=== PATIENT | male | born 1950 | race African-American/Black ===

== ENCOUNTER 2019-07-18 20:58 | Inpatient (IN) | payer OTHER ==
--- NOTE | 2019-07-18 21:12 | PDOC ---
History of Present Illness - General Stated Complaint: HYPOTENSIVE Time Seen by Provider: 07/18/19 21:11 Past History - Past Medical History Allergies/Adverse Reactions: Allergies Allergy/AdvReac Type Severity Reaction Status Date / Time No Known Allergies Allergy Verified 07/18/19 23:00 Home Medications: Ambulatory Orders Amlodipine Besylate 1.5 tab PO DAILY 07/21/19 Atorvastatin Ca [Lipitor] 40 mg PO HS 07/21/19 Glipizide [Glipizide ER] 10 mg PO DAILY 07/21/19 Lisinopril [Zestril] 40 mg PO DAILY 07/21/19 Metformin HCl [Glucophage] 1,000 mg PO BID 07/21/19 ED Treatment Course - LABORATORY CBC & Chemistry Diagram: 07/19/19 08:09 07/20/19 14:25 Medical Decision Making - Medical Decision Making 69yo M with PMH of HTN, DM, CVA with residual left sided weakness presenting with weakness. Patient's aide is at the bedside providing collateral history. She notes she came on shift at 8pm and noticed that the patient seemed lethargic and was sliding down from his wheelchair. His blood pressure was noted to be high, 175/74, however the aide does not know what his baseline blood pressure is. She states he currently seems weaker than at baseline. Patient is without acute complaints. Has been eating and drinking normally. No recent sick contacts. Denies fevers, chills, chest pain, or shortness of breath. PCP: Dr. Sheba Moyer (at [facility]) ROS: Constitutional: no fever, no chills HEENT: no throat pain, no dysphagia Cardiovascular: no chest pain, no palpitations Respiratory: no cough, no shortness of breath Gastrointestinal: no abdominal pain, no nausea Genitourinary: no dysuria, no hematuria Musculoskeletal: no myalgia, no arthralgia Skin: no rash, no itching Neurologic: no headache, +weakness PE: General: Awake, alert, and fully oriented x 3, in no acute distress Head: No signs of trauma Eyes: EOMI, sclera anicteric ENT: Dry mucus membranes Neck: Normal ROM, supple Lungs: Lungs clear, Normal breath sounds Cardio: Regular rhythm, S1 and S2 present Abdomen: Soft, nontender. No guarding, no rebound, no masses Extremities: Normal range of motion, Distal pulses present, No calf tenderness SKIN: Warm, Dry, normal turgor Neurologic: Cranial nerves II through XII grossly intact. Normal speech ED Course/MDM: DDX including but not limited to UTI, PNA, bacteremia, influenza, fever of unknown origin VS significant for rectal temp of 100.4 and tachycardia Septic workup initiated Fluids Ofirmev 07/18/19 21:11 EKG: rate 105, QTc 478, sinus tachycardia CBC WBC 6.8 K/mm3 (4.0-10.0) 07/18/19 21:55 RBC 4.11 M/mm3 (4.00-5.60) 07/18/19 21:55 Hgb 11.3 GM/dL (11.7-16.9) L 07/18/19 21:55 Hct 36.1 % (35.4-49) 07/18/19 21:55 MCV 87.9 fl (80-96) 07/18/19 21:55 MCH 27.6 pg (25.7-33.7) 07/18/19 21:55 MCHC 31.4 g/dl (32.0-35.9) L 07/18/19 21:55 RDW 14.5 % (11.9-15.9) 07/18/19 21:55 Plt Count 198 K/MM3 (134-434) 07/18/19 21:55 MPV 8.7 fl (7.5-11.1) 07/18/19 21:55 Absolute Neuts (auto) 5.9 K/mm3 (1.5-8.0) 07/18/19 21:55 Neutrophils % 86.7 % (42.8-82.8) H 07/18/19 21:55 Lymphocytes % 3.7 % (8-40) L 07/18/19 21:55 Monocytes % 8.4 % (3.8-10.2) 07/18/19 21:55 Eosinophils % 0.9 % (0-4.5) 07/18/19 21:55 Basophils % 0.3 % (0-2.0) 07/18/19 21:55 Nucleated RBC % 0 % (0-0) 07/18/19 21:55 No leukocytosis Pending chemistries Need to collect urine CXR without acute pathology, my impression 07/18/19 22:49 CMP Sodium 139 mmol/L (136-145) 07/18/19 21:55 Potassium 3.5 mmol/L (3.5-5.1) 07/18/19 21:55 Chloride 104 mmol/L (98-107) 07/18/19 21:55 Carbon Dioxide 28 mmol/L (21-32) 07/18/19 21:55 Anion Gap 8 MMOL/L (8-16) 07/18/19 21:55 BUN 12.6 mg/dL (7-18) 07/18/19 21:55 Creatinine 0.7 mg/dL (0.55-1.3) 07/18/19 21:55 Est GFR (CKD-EPI)AfAm 112.38 07/18/19 21:55 Est GFR (CKD-EPI)NonAf 96.97 07/18/19 21:55 Random Glucose 164 mg/dL (74-106) H 07/18/19 21:55 Lactic Acid 2.2 mmol/L (0.4-2.0) H* 07/18/19 21:55 Calcium 9.0 mg/dL (8.5-10.1) 07/18/19 21:55 Total Bilirubin 0.5 mg/dL (0.2-1) 07/18/19 21:55 AST 57 U/L (15-37) H 07/18/19 21:55 ALT 46 U/L (13-61) 07/18/19 21:55 Alkaline Phosphatase 93 U/L (45-117) 07/18/19 21:55 Troponin I < 0.02 ng/ml (0.00-0.05) 07/18/19 21:55 Total Protein 6.8 g/dl (6.4-8.2) 07/18/19 21:55 Albumin 3.5 g/dl (3.4-5.0) 07/18/19 21:55 Electrolytes unremarkable Lactate, 2.2 Tpn undetectable Pending urine sample Patient's aide is leaving. Her name is Tawnya hCun and her number is 07/18/19 23:17 CMP Sodium 139 mmol/L (136-145) 07/18/19 21:55 Potassium 3.5 mmol/L (3.5-5.1) 07/18/19 21:55 Chloride 104 mmol/L (98-107) 07/18/19 21:55 Carbon Dioxide 28 mmol/L (21-32) 07/18/19 21:55 Anion Gap 8 MMOL/L (8-16) 07/18/19 21:55 BUN 12.6 mg/dL (7-18) 07/18/19 21:55 Creatinine 0.7 mg/dL (0.55-1.3) 07/18/19 21:55 Est GFR (CKD-EPI)AfAm 112.38 07/18/19 21:55 Est GFR (CKD-EPI)NonAf 96.97 07/18/19 21:55 Random Glucose 164 mg/dL (74-106) H 07/18/19 21:55 Lactic Acid 2.2 mmol/L (0.4-2.0) H* 07/18/19 21:55 Calcium 9.0 mg/dL (8.5-10.1) 07/18/19 21:55 Total Bilirubin 0.5 mg/dL (0.2-1) 07/18/19 21:55 AST 57 U/L (15-37) H 07/18/19 21:55 ALT 46 U/L (13-61) 07/18/19 21:55 Alkaline Phosphatase 93 U/L (45-117) 07/18/19 21:55 Troponin I < 0.02 ng/ml (0.00-0.05) 07/18/19 21:55 Total Protein 6.8 g/dl (6.4-8.2) 07/18/19 21:55 Albumin 3.5 g/dl (3.4-5.0) 07/18/19 21:55 Electrolytes unremarkable Tpn undetectable Lactate elevated, 2.2 UA negative for infection We will cover broadly with vanc/zosyn 07/19/19 01:34 lactate increased to 4.2 500cc fluid bolus ordered 07/19/19 02:[address] Madrigal who accepted patient for admission under Dr. Mills 07/19/19 02:50 *DC/Admit/Observation/Transfer Diagnosis at time of Disposition: SIRS (systemic inflammatory response syndrome), Elevated lactic acid level - Discharge Dispostion Condition at time of disposition: Stable Decision to Admit order: Yes - Referrals - Patient Instructions - Post Discharge Activity
--- NOTE | 2019-07-18 21:18 | PDOC ---
Attending Attestation - Resident Resident Name: Aura Lamb - ED Attending Attestation I have performed the following: I have examined & evaluated the patient, The case was reviewed & discussed with the resident, I agree w/resident's findings & plan - HPI HPI: 07/18/19 21:40 Pt has fever and tachycardia; unclear source. Pt feels weak. - Physicial Exam PE: 07/18/19 22:06 Agree with resident exam 07/19/19 01:47 Pt has clear lungs. Abd soft NT ND No flank pain. Pt is paralyszed on the left side.. Pt has weakness in the rest of his body; however he is able to live at home with a HHAide. Pt has no rashes and no lesions on his skin. - Medical Decision Making 07/19/19 00:28 WE will repeat a lactic acid and check his UA. Pt has no source at this time. Abd soft; lungs clear; no tashes, thorat nontender; no flank pain; no rashes; no neck stiffness; no runny nose. 07/19/19 02:16 Pt will be admitted for sepsis because despite fluids his lactic acid samantha from 2.2 to 4+ He was treated with broad spectrum abx in the ER.
[2019-07-18] MEDS ORDERED: ACETAMINOPHEN 1000 MG/100 ML VIAL (NON FORMULARY) IVPB ONE (21:32)
[2019-07-18] MEDS ORDERED: SODIUM CHLORIDE 1,000 ML IV STA (21:32)
[2019-07-18 22:40] LABS: BASO % 0.3 % (0-2.0); EOS % 0.9 % (0-4.5); HEMATOCRIT 36.1 % (35.4-49); HEMOGLOBIN 11.3 GM/dL (11.7-16.9); LYMPH % 3.7 % (8-40); MCH 27.6 pg (25.7-33.7); MCHC 31.4 g/dl (32.0-35.9); MEAN CELL VOLUME 87.9 fl (80-96); MEAN PLT VOLUME 8.7 fl (7.5-11.1); MONO % 8.4 % (3.8-10.2); NEUT % 86.7 % (42.8-82.8); PLATELET COUNT 198 K/MM3 (134-434); RBC 4.11 M/mm3 (4.00-5.60); RDW 14.5 % (11.9-15.9); WHITE BLOOD COUNT 6.8 K/mm3 (4.0-10.0)
[2019-07-18 22:43] LABS: VENOUS PC02 42.4 mmHg (38-52); VENOUS PH 7.41 (7.31-7.41); VENOUS PO2 57.7 mmHg (28-48)
[2019-07-18 23:06] LABS: INR 1.03 (0.83-1.09); PROTHROMBIN TIME (PATIENT) 12.2 SEC (9.7-13.0)
[2019-07-18 23:08] LABS: ACTIVATED PTT 32.8 SECONDS (25.2-36.5)
[2019-07-18] MEDS ORDERED: ACETAMINOPHEN INJECTION 100 ML IVPB ONE (23:08)
[2019-07-18 23:10] LABS: ALBUMIN 3.5 g/dl (3.4-5.0); BILIRUBIN,TOTAL 0.5 mg/dL (0.2-1); BLOOD UREA NITROGEN 12.6 mg/dL (7-18); CREATININE 0.7 mg/dL (0.55-1.3); POTASSIUM 3.5 mmol/L (3.5-5.1); TOT PROT 6.8 g/dl (6.4-8.2)
[2019-07-19] MEDS ORDERED: SODIUM CHLORIDE 500 ML IV STA ×2 (00:11→01:53)
[2019-07-19 00:37] LABS: EPI CELLS 4.6 /HPF (0-5/HPF); HYALINE CASTS 14 /lpf (0-8); URINE APPEARANCE CLOUDY; URINE BACTERIA 13.5 /hpf (NEGATIVE); URINE BILIRUBIN NEGATIVE (NEGATIVE); URINE COLOR YELLOW; URINE GLUCOSE (UA) 2+ (NEGATIVE); URINE KETONE 1+ (NEGATIVE); URINE LEUK ESTERASE NEGATIVE (NEGATIVE); URINE NITRITE NEGATIVE (NEGATIVE); URINE PROTEIN 2+ (NEGATIVE); URINE UROBILINOGEN 0.2 mg/dL (0.2-1.0); URINE WBC 1 /hpf (0-5)
[2019-07-19] MEDS ORDERED: PIPERACILLIN/TAZOB 4.5 GM 4.5 GM in DEXTROSE 5%-WATER 100 ML IVPB ONE (01:34)
[2019-07-19] MEDS ORDERED: VANCOMYCIN 1,000 MG in DEXTROSE 5%-WATER - 250 ML IVPB ONE (01:34)
[2019-07-19] MEDS ORDERED: VANCOMYCIN 1 GRAM (PRE-DOCKED) 1,000 MG/250 ML BAG IVPB ONE (01:47)
--- NOTE | 2019-07-19 03:31 | HP ---
CHIEF COMPLAINT: Weakness PCP: [facility] HISTORY OF PRESENT ILLNESS: 69 y/o M with PMHx of HTN, DMII, CVA (with Residual LUE, LLE weakness, Left facial droop) presents for weakness. Patient was in his usual state of health until sunday at noon where he had sudden onset weakness. Patient has had diminished appetite for many weeks however Sunday Afternoon was the weakest he has ever felt. His SBP measured at this was 175. Patient went to his PCP for a regular check up yesterday but felt his weakness improved during the office visit. During his visit he received 2 shots (he is only able to recall the name of one shot, PNA Vaccine). His weakness came on suddenly upon arriving home, and being that this was the 1st time, he was prompted to visit [facility]. Denies any associated fevers, chills, chest pain, SOB, nausea, vomiting diarrhea , constpation. 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 NECK: No JVD LUNGS: CTAB. No wheezes, no crackles. HEART: Regular rate and rhythm, normal S1 and S2 without murmur ABDOMEN: Soft, nontender, not distended, + bowel sounds, no guarding, no rebound UPPER EXTREMITIES: Left contracted LOWER EXTREMITIES: No peripheral edema. NEUROLOGICAL: Cranial nerves II-XII intact. Normal speech. 3/5 Muscle strength in the LUE and LLE, 5/5 in the Right side, Gross sensation intact throughout. SKIN: Warm, dry Laboratory Results - last 24 hr 07/18/19 07/18/19 07/18/19 21:55 21:55 21:55 WBC 6.8 RBC 4.11 Hgb 11.3 L Hct 36.1 MCV 87.9 MCH 27.6 MCHC 31.4 L RDW 14.5 Plt Count 198 MPV 8.7 Absolute Neuts (auto) 5.9 Neutrophils % 86.7 H Lymphocytes % 3.7 L Monocytes % 8.4 Eosinophils % 0.9 Basophils % 0.3 Nucleated RBC % 0 PT with INR INR PTT (Actin FS) VBG pH POC VBG pCO2 POC VBG pO2 VBG HCO3 VBG O2 Sat ([place]ago) VBG Base Excess Sodium 139 Potassium 3.5 Chloride 104 Carbon Dioxide 28 Anion Gap 8 BUN 12.6 Creatinine 0.7 Est GFR (CKD-EPI)AfAm 112.38 Est GFR (CKD-EPI)NonAf 96.97 Random Glucose 164 H Lactic Acid Calcium 9.0 Total Bilirubin 0.5 AST 57 H ALT 46 Alkaline Phosphatase 93 Troponin I < 0.02 Total Protein 6.8 Albumin 3.5 Urine Color Urine Appearance Urine pH Ur Specific [place] Urine Protein Urine Glucose (UA) Urine Ketones Urine Blood Urine Nitrite Urine Bilirubin Urine Urobilinogen Ur Leukocyte Esterase Urine WBC (Auto) Urine Casts (Auto) U Epithel Cells (Auto) Urine Bacteria (Auto) 07/18/19 07/18/19 07/18/19 21:55 21:55 21:55 WBC RBC Hgb Hct MCV MCH MCHC RDW Plt Count MPV Absolute Neuts (auto) Neutrophils % Lymphocytes % Monocytes % Eosinophils % Basophils % Nucleated RBC % PT with INR Cancelled INR Cancelled PTT (Actin FS) VBG pH 7.41 POC VBG pCO2 42.4 POC VBG pO2 57.7 H VBG HCO3 26.3 VBG O2 Sat ([place]ago) 88.1 H VBG Base Excess 1.9 Sodium Potassium Chloride Carbon Dioxide Anion Gap BUN Creatinine Est GFR (CKD-EPI)AfAm Est GFR (CKD-EPI)NonAf Random Glucose Lactic Acid 2.2 H* Calcium Total Bilirubin AST ALT Alkaline Phosphatase Troponin I Total Protein Albumin Urine Color Urine Appearance Urine pH Ur Specific [place] Urine Protein Urine Glucose (UA) Urine Ketones Urine Blood Urine Nitrite Urine Bilirubin Urine Urobilinogen Ur Leukocyte Esterase Urine WBC (Auto) Urine Casts (Auto) U Epithel Cells (Auto) Urine Bacteria (Auto) 07/18/19 07/19/19 21:58 00:00 WBC RBC Hgb Hct MCV MCH MCHC RDW Plt Count MPV Absolute Neuts (auto) Neutrophils % Lymphocytes % Monocytes % Eosinophils % Basophils % Nucleated RBC % PT with INR 12.20 INR 1.03 PTT (Actin FS) 32.8 VBG pH POC VBG pCO2 POC VBG pO2 VBG HCO3 VBG O2 Sat ([place]) VBG Base Excess Sodium Potassium Chloride Carbon Dioxide Anion Gap BUN Creatinine Est GFR (CKD-EPI)AfAm Est GFR (CKD-EPI)NonAf Random Glucose Lactic Acid Calcium Total Bilirubin AST ALT Alkaline Phosphatase Troponin I Total Protein Albumin Urine Color Yellow Urine Appearance Cloudy Urine pH 5.0 Ur Specific [place] 1.023 Urine Protein 2+ H Urine Glucose (UA) 2+ H Urine Ketones 1+ H Urine Blood 2+ H Urine Nitrite Negative Urine Bilirubin Negative Urine Urobilinogen 0.2 Ur Leukocyte Esterase Negative Urine WBC (Auto) 1 Urine Casts (Auto) 14 U Epithel Cells (Auto) 4.6 Urine Bacteria (Auto) 13.5 ASSESSMENT/PLAN: 69 y/o M with PMHx of HTN, DMII, CVA (with Residual LUE, LLE weakness, Left facial droop) presents for weakness. #SIRS+ -Febrile + Tachycardia due to unclear sources -Given Broad spec ABx, NS 2L, Ofirmev in ED -Lactic acid continues to rise -Continue IV Hydration -Trend Lactic acid -Check Flu swab, Respiratory PCR panel -Follow Cultures, Hold off ABx for now -Acetaminophen # PO Intake -Consider dietary consult -Dietary supplementation (Ensure) #CVA -Resume home meds once med-Recc'ed #HTN -Resume home meds once clinically appropriate #DMII -ISS BGMs ACHS #FEN -No standing fluids -Replete lytes PRN -Soft diet, ensure supplementation #PPx -SCDs Dispo: Admit to med-surg, Will need Med-Rec Visit type - Emergency Visit Emergency Visit: Yes ED Registration Date: 07/19/19 Care time: The patient presented to the Emergency Department on the above date and was hospitalized for further evaluation of their emergent condition. - New Patient This patient is new to me today: Yes Date on this admission: 07/19/19 - Critical Care Critical Care patient: No ATTENDING PHYSICIAN STATEMENT I saw and evaluated the patient. I reviewed the resident's note and discussed the case with the resident. I agree with the resident's findings and plan as documented. SUBJECTIVE: OBJECTIVE: ASSESSMENT AND PLAN:
[2019-07-19 04:02] LABS: URINE RBC 19.7 /hpf (0-4); YEAST SEEN (NEGATIVE)
[2019-07-19] MEDS ORDERED: ACETAMINOPHEN 325 MG TABLET (FP) PO PRN (04:05)
[2019-07-19] MEDS: SODIUM CHLORIDE 1,000 ML IV SCH ×2 (04:16→14:30)
--- NOTE | 2019-07-19 04:37 | PN ---
Teaching Attending Note Name of Resident: Barb Madrigal ATTENDING PHYSICIAN STATEMENT I saw and evaluated the patient. I reviewed the resident's note and discussed the case with the resident. I agree with the resident's findings and plan as documented. SUBJECTIVE: 69 y/o M with PMHx of HTN, DMII, CVA (with Residual LUE, LLE weakness, Left facial droop) presents for weakness. Patient stated he feels "sick". He denied any sick contacts. Stated he received flu vaccine one day ago. Mentioned subjective fevers, chills. Denied diarrhea, dysuria, vomiting, skin infections. He is immobile after his stroke, lives alone but has support from home health aid. OBJECTIVE: Last Vital Signs Temp Pulse Resp BP Pulse Ox 97.5 F L 95 H 19 119/62 98 07/19/19 03:33 07/19/19 02:17 07/19/19 02:17 07/19/19 02:17 07/19/19 02:17 gen - nontontoxic appearing heent - at, nc neck -supple cv-s1+s2+rrr chest clear abd - soft nt ext -left upper ext contracture Abnormal Lab Results 07/18/19 07/18/19 07/18/19 21:55 21:55 21:55 Hgb 11.3 L MCHC 31.4 L Neutrophils % 86.7 H Lymphocytes % 3.7 L POC VBG pO2 VBG O2 Sat ([place]) Random Glucose 164 H Lactic Acid 2.2 H* AST 57 H Urine Protein Urine Glucose (UA) Urine Ketones Urine Blood 07/18/19 07/19/19 07/19/19 21:55 00:00 00:50 Hgb MCHC Neutrophils % Lymphocytes % POC VBG pO2 57.7 H VBG O2 Sat ([place]) 88.1 H Random Glucose Lactic Acid 4.2 H* AST Urine Protein 2+ H Urine Glucose (UA) 2+ H Urine Ketones 1+ H Urine Blood 2+ H imaging reviewed cxr clear without infiltrates ekg -sinus tachycardia ASSESSMENT AND PLAN: #generalized weakness #fever, tachycardia - now improved. No obvious source of infection identified. Possible UTI. #lactic acidosis - trending up, no infections identified. Would consider alternative causes of lactic acidosis #S/p CVA with left sided weakness #anemia #DM -blood cultures, urine culture sent, pending -iv fluid hydration -trend lactic acid -monitor off antibiotics -if recurrent fever, tachycardia, restart on broad spectrum abx -respiratory multiplex pcr panel -droplet precautions -novolog sliding scale -dvt ppx -c/w home meds
[2019-07-19 06:19] VITALS: BMI 17.5
[2019-07-19] MEDS: INSULIN SLIDING SCALE (NOVOLOG) 1 VIAL SQ SCH ×4 (06:39→22:06)
[2019-07-19] MEDS: HEPARIN NA (PORCINE) 5,000 UNITS/ML 1ML VIAL SQ SCH ×3 (06:39→22:05)
[2019-07-19 08:51] LABS: BASO % 0.4 % (0-2.0); HEMATOCRIT 33.9 % (35.4-49); HEMOGLOBIN 10.8 GM/dL (11.7-16.9); LYMPH % 9.2 % (8-40); MCH 27.8 pg (25.7-33.7); MCHC 31.9 g/dl (32.0-35.9); MEAN CELL VOLUME 87.3 fl (80-96); MEAN PLT VOLUME 8.2 fl (7.5-11.1); MONO % 7.7 % (3.8-10.2); NEUT % 80.7 % (42.8-82.8); PLATELET COUNT 183 K/MM3 (134-434); RBC 3.89 M/mm3 (4.00-5.60); RDW 14.5 % (11.9-15.9); WHITE BLOOD COUNT 6.4 K/mm3 (4.0-10.0)
[2019-07-19 09:11] LABS: ALBUMIN 3.1 g/dl (3.4-5.0); BILIRUBIN,TOTAL 0.4 mg/dL (0.2-1); BLOOD UREA NITROGEN 11.5 mg/dL (7-18); CALCIUM 8.9 mg/dL (8.5-10.1); CREATININE 0.8 mg/dL (0.55-1.3); MAGNESIUM 1.5 mg/dL (1.8-2.4); PHOSPHOROUS 2.8 mg/dL (2.5-4.9); POTASSIUM 4.2 mmol/L (3.5-5.1); TOT PROT 6.2 g/dl (6.4-8.2)
--- NOTE | 2019-07-19 14:57 | PN ---
Physical Exam: SUBJECTIVE: Patient seen and examined He is better now has no weakness and no fever or chills no distress no fever or chills He ate all his food. He has no headache or any other symptoms [place]- 69 y/o M with PMHx of HTN, DMII, CVA (with Residual LUE, LLE weakness, Left facial droop) presents for weakness. OBJECTIVE: OBJECTIVE: Vital Signs Period Temp Pulse Resp BP Sys/Dennis Pulse Ox Last 24 Hr 97.5 F-100.4 F 75-115 16-19 119-158/56-86 97-98 GENERAL: The patient is awake, alert, and fully oriented, in no acute distress. HEAD: Normal with no signs of trauma. NECK: Trachea midline, full range of motion, supple. LUNGS: Breath sounds equal, clear to auscultation bilaterally, no wheezes, no crackles, no accessory muscle use. HEART: Regular rate and rhythm, S1, S2 without murmur, ABDOMEN: Soft, nontender, nondistended, normoactive bowel sounds, no hepatosplenomegaly, no masses. EXTREMITIES: 2+ pulses, warm, well-perfused, no edema. NEUROLOGICAL: He is alert and awake but has left hemipresis of 3/5 power in his upper and lower extremities on left side G Laboratory Results - last 24 hr 07/18/19 07/18/19 07/18/19 21:55 21:55 21:55 WBC 6.8 RBC 4.11 Hgb 11.3 L Hct 36.1 MCV 87.9 MCH 27.6 MCHC 31.4 L RDW 14.5 Plt Count 198 MPV 8.7 Absolute Neuts (auto) 5.9 Neutrophils % 86.7 H Lymphocytes % 3.7 L Monocytes % 8.4 Eosinophils % 0.9 Basophils % 0.3 Nucleated RBC % 0 PT with INR INR PTT (Actin FS) VBG pH POC VBG pCO2 POC VBG pO2 VBG HCO3 VBG O2 Sat ([place]) VBG Base Excess Sodium 139 Potassium 3.5 Chloride 104 Carbon Dioxide 28 Anion Gap 8 BUN 12.6 Creatinine 0.7 Est GFR (CKD-EPI)AfAm 112.38 Est GFR (CKD-EPI)NonAf 96.97 POC Glucometer Random Glucose 164 H Lactic Acid Calcium 9.0 Phosphorus Magnesium Total Bilirubin 0.5 AST 57 H ALT 46 Alkaline Phosphatase 93 Troponin I < 0.02 Total Protein 6.8 Albumin 3.5 Urine Color Urine Appearance Urine pH Ur Specific [place] Urine Protein Urine Glucose (UA) Urine Ketones Urine Blood Urine Nitrite Urine Bilirubin Urine Urobilinogen Ur Leukocyte Esterase Urine WBC (Auto) Urine RBC (Auto) Urine Casts (Auto) U Epithel Cells (Auto) U Sm Round Cell (Auto) Urine Bacteria (Auto) Urine Yeast (Auto) Influenza A (Rapid) Influenza B (Rapid) RSV Rapid 07/18/19 07/18/19 07/18/19 21:55 21:55 21:55 WBC RBC Hgb Hct MCV MCH MCHC RDW Plt Count MPV Absolute Neuts (auto) Neutrophils % Lymphocytes % Monocytes % Eosinophils % Basophils % Nucleated RBC % PT with INR Cancelled INR Cancelled PTT (Actin FS) VBG pH 7.41 POC VBG pCO2 42.4 POC VBG pO2 57.7 H VBG HCO3 26.3 VBG O2 Sat ([place]) 88.1 H VBG Base Excess 1.9 Sodium Potassium Chloride Carbon Dioxide Anion Gap BUN Creatinine Est GFR (CKD-EPI)AfAm Est GFR (CKD-EPI)NonAf POC Glucometer Random Glucose Lactic Acid 2.2 H* Calcium Phosphorus Magnesium Total Bilirubin AST ALT Alkaline Phosphatase Troponin I Total Protein Albumin Urine Color Urine Appearance Urine pH Ur Specific [place] Urine Protein Urine Glucose (UA) Urine Ketones Urine Blood Urine Nitrite Urine Bilirubin Urine Urobilinogen Ur Leukocyte Esterase Urine WBC (Auto) Urine RBC (Auto) Urine Casts (Auto) U Epithel Cells (Auto) U Sm Round Cell (Auto) Urine Bacteria (Auto) Urine Yeast (Auto) Influenza A (Rapid) Influenza B (Rapid) RSV Rapid 07/18/19 07/19/19 07/19/19 21:58 00:00 00:50 WBC RBC Hgb Hct MCV MCH MCHC RDW Plt Count MPV Absolute Neuts (auto) Neutrophils % Lymphocytes % Monocytes % Eosinophils % Basophils % Nucleated RBC % PT with INR 12.20 INR 1.03 PTT (Actin FS) 32.8 VBG pH POC VBG pCO2 POC VBG pO2 VBG HCO3 VBG O2 Sat ([place]) VBG Base Excess Sodium Potassium Chloride Carbon Dioxide Anion Gap BUN Creatinine Est GFR (CKD-EPI)AfAm Est GFR (CKD-EPI)NonAf POC Glucometer Random Glucose Lactic Acid 4.2 H* Calcium Phosphorus Magnesium Total Bilirubin AST ALT Alkaline Phosphatase Troponin I Total Protein Albumin Urine Color Yellow Urine Appearance Cloudy Urine pH 5.0 Ur Specific [place] 1.023 Urine Protein 2+ H Urine Glucose (UA) 2+ H Urine Ketones 1+ H Urine Blood 2+ H Urine Nitrite Negative Urine Bilirubin Negative Urine Urobilinogen 0.2 Ur Leukocyte Esterase Negative Urine WBC (Auto) 1 Urine RBC (Auto) 19.7 Urine Casts (Auto) 14 U Epithel Cells (Auto) 4.6 U Sm Round Cell (Auto) Seen Urine Bacteria (Auto) 13.5 Urine Yeast (Auto) Seen Influenza A (Rapid) Influenza B (Rapid) RSV Rapid 07/19/19 07/19/19 07/19/19 04:46 05:06 06:27 WBC RBC Hgb Hct MCV MCH MCHC RDW Plt Count MPV Absolute Neuts (auto) Neutrophils % Lymphocytes % Monocytes % Eosinophils % Basophils % Nucleated RBC % PT with INR INR PTT (Actin FS) VBG pH POC VBG pCO2 POC VBG pO2 VBG HCO3 VBG O2 Sat ([place]) VBG Base Excess Sodium Potassium Chloride Carbon Dioxide Anion Gap BUN Creatinine Est GFR (CKD-EPI)AfAm Est GFR (CKD-EPI)NonAf POC Glucometer 148 Random Glucose Lactic Acid Calcium Phosphorus Magnesium Total Bilirubin AST ALT Alkaline Phosphatase Troponin I Total Protein Albumin Urine Color Urine Appearance Urine pH Ur Specific [place] Urine Protein Urine Glucose (UA) Urine Ketones Urine Blood Urine Nitrite Urine Bilirubin Urine Urobilinogen Ur Leukocyte Esterase Urine WBC (Auto) Urine RBC (Auto) Urine Casts (Auto) U Epithel Cells (Auto) U Sm Round Cell (Auto) Urine Bacteria (Auto) Urine Yeast (Auto) Influenza A (Rapid) Negative Influenza B (Rapid) Negative RSV Rapid Negative 07/19/19 07/19/19 07/19/19 08:09 08:09 11:50 WBC 6.4 RBC 3.89 L Hgb 10.8 L Hct 33.9 L MCV 87.3 MCH 27.8 MCHC 31.9 L RDW 14.5 Plt Count 183 MPV 8.2 Absolute Neuts (auto) 5.2 Neutrophils % 80.7 Lymphocytes % 9.2 D Monocytes % 7.7 Eosinophils % 2.0 D Basophils % 0.4 Nucleated RBC % 0 PT with INR INR PTT (Actin FS) VBG pH POC VBG pCO2 POC VBG pO2 VBG HCO3 VBG O2 Sat ([place]) VBG Base Excess Sodium 142 Potassium 4.2 Chloride 107 Carbon Dioxide 28 Anion Gap 6 L BUN 11.5 Creatinine 0.8 Est GFR (CKD-EPI)AfAm 106.38 Est GFR (CKD-EPI)NonAf 91.79 POC Glucometer 66 Random Glucose 106 Lactic Acid Calcium 8.9 Phosphorus 2.8 Magnesium 1.5 L Total Bilirubin 0.4 AST 50 H ALT 58 Alkaline Phosphatase 85 Troponin I Total Protein 6.2 L Albumin 3.1 L Urine Color Urine Appearance Urine pH Ur Specific [place] Urine Protein Urine Glucose (UA) Urine Ketones Urine Blood Urine Nitrite Urine Bilirubin Urine Urobilinogen Ur Leukocyte Esterase Urine WBC (Auto) Urine RBC (Auto) Urine Casts (Auto) U Epithel Cells (Auto) U Sm Round Cell (Auto) Urine Bacteria (Auto) Urine Yeast (Auto) Influenza A (Rapid) Influenza B (Rapid) RSV Rapid Active Medications Generic Name Dose Route Start Last Admin Trade Name Freq PRN Reason Stop Dose Admin Acetaminophen 650 mg 07/19/19 04:05 Tylenol - PO Q4H PRN FEVER Heparin Sodium (Porcine) 5,000 unit 07/19/19 06:00 07/19/19 13:47 Heparin - SQ Not Given TID KIMBERLY Sodium Chloride 1,000 mls @ 75 mls/hr 07/19/19 04:15 07/19/19 14:30 Normal Saline - IV 75 mls/hr ASDIR KIMBERLY Administration Insulin Aspart 1 vial 07/19/19 07:00 07/19/19 12:26 Novolog Vial Sliding Scale - SQ Not Given ACHS KIMBERLY Protocol ASSESSMENT/PLAN: Generalized weakness but no fever or white cell count, will watch for any fever , continue fluids , his bp is controlled at this time , he received abx in and at this moment no need for more abx , will wait for blood and urine c/s will repeat lactic acid in am even though it gone up today from 1st test in er. continue Tylenol prn DM - He is on insulin coverage HTN - stable continue same meds Visit type - Emergency Visit Emergency Visit: Yes ED Registration Date: 07/19/19 Care time: The patient presented to the Emergency Department on the above date and was hospitalized for further evaluation of their emergent condition. - New Patient This patient is new to me today: Yes Date on this admission: 07/19/19 - Critical Care Critical Care patient: No - Discharge Referral Referred to [facility] No
--- NOTE | 2019-07-19 23:45 | EKG ---
Test Reason : Blood Pressure : / mmHG Vent. Rate : 105 BPM Atrial Rate : 105 BPM P-R Int : 140 ms QRS Dur : 086 ms QT Int : 362 ms P-R-T Axes : 082 019 068 degrees QTc Int : 478 ms SINUS TACHYCARDIA OTHERWISE NORMAL ECG NO PREVIOUS ECGS AVAILABLE Confirmed by ADRIAN HILL MD ([id number]) on 07/19/2019 11:45:23 PM Referred By: Confirmed By:ADRIAN HILL MD
[2019-07-20] MEDS: SODIUM CHLORIDE 1,000 ML IV SCH (05:05)
[2019-07-20] MEDS: HEPARIN NA (PORCINE) 5,000 UNITS/ML 1ML VIAL SQ SCH ×3 (06:11→21:34)
[2019-07-20] MEDS: INSULIN SLIDING SCALE (NOVOLOG) 1 VIAL SQ SCH ×4 (06:43→21:34)
--- NOTE | 2019-07-20 09:14 | PN ---
Teaching Attending Note Name of Resident: Barb Ruiz ATTENDING PHYSICIAN STATEMENT I saw and evaluated the patient. I reviewed the resident's note and discussed the case with the resident. I agree with the resident's findings and plan as documented. 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 presents for weakness. Problem List - Problems (1) Weakness Assessment/Plan: due to dehydration secondary to diarrhea , resolved TWBC normal Code(s): R53.1 - WEAKNESS (2) SIRS (systemic inflammatory response syndrome) Assessment/Plan: secondary to diarrhae recived IV Hydration now improved F/U Lactic acid level Code(s): R65.10 - SIRS OF NON-INFECTIOUS ORIGIN W/O ACUTE ORGAN DYSFUNCTION (3) Elevated lactic acid level Assessment/Plan: F/U Lactic acid level after IV hydration Code(s): R79.89 - OTHER SPECIFIED ABNORMAL FINDINGS OF BLOOD CHEMISTRY (4) HTN (hypertension) Assessment/Plan: Well controlled cont home meds Code(s): I10 - ESSENTIAL (PRIMARY) HYPERTENSION (5) CVA, old, hemiparesis Assessment/Plan: Left sided weakness wheel chair bound, no interval changes cont home meds Code(s): I69.359 - HEMIPLGA FOLLOWING CEREBRAL INFARCTION AFFECTING UNSP SIDE (6) Hypercholesterolemia Assessment/Plan: Cont statin Code(s): E78.00 - PURE HYPERCHOLESTEROLEMIA, UNSPECIFIED (7) T2DM (type 2 diabetes mellitus) Assessment/Plan: please confirm home meds high lactate can be due to Metformin with dehydration Code(s): E11.9 - TYPE 2 DIABETES MELLITUS WITHOUT COMPLICATIONS
--- NOTE | 2019-07-20 12:53 | PN ---
Physical Exam: SUBJECTIVE: Patient seen and examined this AM. No new complaints. Feels his weakness has resolved. Able to tolerate diet this AM. Denies any fevers, chills , chest pain, SOB, nausea, vomiting, diarrhea, constipation. OBJECTIVE: Vital Signs Period Temp Pulse Resp BP Sys/Dennis Pulse Ox Last 24 Hr 98.1 F-98.6 F 72-78 16-20 136-159/70-89 98 GENERAL: A&Ox3, NAD HEAD: NCAT EYES: PERRL, EOMI, Left Chronic Lid lag ENT: Moist mucous membranes. NECK: No JVD LUNGS: CTAB. No wheezes, no crackles. HEART: Regular rate and rhythm, normal S1 and S2 without murmur ABDOMEN: Soft, nontender, not distended, + bowel sounds, no guarding, no rebound UPPER EXTREMITIES: Left contracted LOWER EXTREMITIES: No peripheral edema. NEUROLOGICAL: Cranial nerves II-XII intact. Normal speech. 3/5 Muscle strength in the LUE and LLE, 5/5 in the Right side, Gross sensation intact throughout. SKIN: Warm, dry Laboratory Results - last 24 hr 07/19/19 07/19/19 07/20/19 17:00 21:26 11:33 POC Glucometer 95 129 202 Microbiology 07/19/19 00:00 Urine - Urine Clean Catch Urine Culture - Preliminary 07/18/19 21:55 Blood - Peripheral Venous Blood Culture - Preliminary NO GROWTH OBTAINED AFTER 24 HOURS, INCUBATION TO CONTINUE FOR 4 DAYS. 07/18/19 21:55 Blood - Peripheral Venous Blood Culture - Preliminary NO GROWTH OBTAINED AFTER 24 HOURS, INCUBATION TO CONTINUE FOR 4 DAYS. Active Medications Acetaminophen (Tylenol -) 650 mg PO Q4H PRN PRN Reason: FEVER Heparin Sodium (Porcine) (Heparin -) 5,000 unit SQ TID [facility] Last Admin: 07/20/19 06:11 Dose: Not Given Insulin Aspart (Novolog Vial Sliding Scale -) 1 vial SQ ACHS [facility]; Protocol Last Admin: 07/20/19 11:38 Dose: 4 units ASSESSMENT/PLAN: 69 y/o M with PMHx of HTN, DMII, CVA (with Residual LUE, LLE weakness, Left facial droop) presents for weakness. #SIRS+ -Intiallly Febrile + Tachycardia, which has resolved; Remains without leukocytosis -Micro and Serology noted above; Follow CX's -Can hold off ABx for now -Acetaminophen PRN # PO Intake -Consider dietary consult -Dietary supplementation (Ensure) #CVA -Resume home meds once med-Recc'ed #HTN -Resume home meds once clinically appropriate #DMII -ISS BGMs ACHS #FEN -No standing fluids -Replete lytes PRN -Soft diet, ensure supplementation #PPx -SCDs Dispo: Admit to med-surg, Will need Med-Rec Visit type - Emergency Visit Emergency Visit: Yes ED Registration Date: 07/19/19 Care time: The patient presented to the Emergency Department on the above date and was hospitalized for further evaluation of their emergent condition. - New Patient This patient is new to me today: Yes Date on this admission: 07/20/19 - Critical Care Critical Care patient: No ATTENDING PHYSICIAN STATEMENT I saw and evaluated the patient. I reviewed the resident's note and discussed the case with the resident. I agree with the resident's findings and plan as documented. SUBJECTIVE: OBJECTIVE: ASSESSMENT AND PLAN:
[2019-07-20 15:28] LABS: BLOOD UREA NITROGEN 10.6 mg/dL (7-18); CALCIUM 8.9 mg/dL (8.5-10.1); CREATININE 0.7 mg/dL (0.55-1.3); MAGNESIUM 1.9 mg/dL (1.8-2.4); POTASSIUM 3.7 mmol/L (3.5-5.1)
[2019-07-21] MEDS: HEPARIN NA (PORCINE) 5,000 UNITS/ML 1ML VIAL SQ SCH ×3 (06:14→21:37)
[2019-07-21] MEDS: INSULIN SLIDING SCALE (NOVOLOG) 1 VIAL SQ SCH ×4 (06:14→21:36)
--- NOTE | 2019-07-21 10:41 | PN ---
Teaching Attending Note Name of Resident: Kaden Mckeon ATTENDING PHYSICIAN STATEMENT I saw and evaluated the patient. I reviewed the resident's note and discussed the case with the resident. I agree with the resident's findings and plan as documented. SUBJECTIVE: Patient has no complaints. OBJECTIVE: Vital Signs Period Temp Pulse Resp BP Sys/Dennis Pulse Ox Last 24 Hr 98.1 F-98.8 F 74-94 18-19 144-158/80-86 100 HEART: S1S2, RRR LUNGS: Clear ABDOMEN: Soft, non-tender, non-distended, normal BS EXTREMITIES: No edema Laboratory Results - last 24 hr 07/20/19 07/20/19 07/20/19 11:33 14:25 14:25 Sodium 139 Potassium 3.7 Chloride 101 Carbon Dioxide 28 Anion Gap 9 BUN 10.6 Creatinine 0.7 Est GFR (CKD-EPI)AfAm 112.38 Est GFR (CKD-EPI)NonAf 96.97 POC Glucometer 202 Random Glucose 207 H Lactic Acid 1.9 Calcium 8.9 Magnesium 1.9 07/20/19 07/21/19 21:33 05:36 Sodium Potassium Chloride Carbon Dioxide Anion Gap BUN Creatinine Est GFR (CKD-EPI)AfAm Est GFR (CKD-EPI)NonAf POC Glucometer 191 122 Random Glucose Lactic Acid Calcium Magnesium Current Medications Generic Name Dose Route Start Last Admin Trade Name Alexia PRN Reason Stop Dose Admin Acetaminophen 650 mg 07/19/19 04:05 Tylenol - PO Q4H PRN FEVER Heparin Sodium (Porcine) 5,000 unit 07/19/19 06:00 07/21/19 06:14 Heparin - SQ 5,000 unit TID [facility] Administration Insulin Aspart 1 vial 07/19/19 07:00 07/21/19 06:14 Novolog Vial Sliding Scale - SQ Not Given ACHS [facility] Protocol ASSESSMENT AND PLAN: This is a 69 year old man with a history of HTN, type 2 DM, CVA with left hemiparesis who presented to the ED with weakness. 1. SIRS (temp 100.4, HR 115) - No evidence of infection - Possible viral illness - Improved 2. Left hemiparesis secondary to old CVA - Resume Lipitor on discharge 3. HTN - Resume lisinopril, Norvasc on discharge 4. Type 2 DM - Resume glipizide, metformin on discharge 5. Disposition - Ok for discharge home
--- NOTE | 2019-07-21 13:26 | PN ---
Physical Exam: HPI: 69 y/o M with PMHx of HTN, DMII, CVA (with Residual LUE, LLE weakness, Left facial droop) presented for sudden acute weakness/fatigue. SUBJECTIVE: Patient seen and examined. Has no complaints. States that he feels better with improvement in weakness. Expresses desire to be discharged home OBJECTIVE: Vital Signs Period Temp Pulse Resp BP Sys/Dennis Pulse Ox Last 24 Hr 98.1 F-98.8 F 74-94 18-19 144-158/80-86 100 GENERAL: A&Ox3, NAD HEAD: NCAT, moderate temporal wasting EYES: PERRL, EOMI, Left Chronic Lid lag ENT: Moist mucous membranes. NECK: No JVD LUNGS: CTAB. No wheezes, no crackles. 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 No calf tenderness NEUROLOGICAL: Cranial nerves II-XII intact. Normal speech. 3/5 Muscle strength in the LUE and LLE, 5/5 in the Right side, Gross sensation intact throughout. SKIN: Warm, dry Laboratory Results - last 24 hr 07/20/19 07/20/19 07/20/19 14:25 14:25 21:33 Sodium 139 Potassium 3.7 Chloride 101 Carbon Dioxide 28 Anion Gap 9 BUN 10.6 Creatinine 0.7 Est GFR (CKD-EPI)AfAm 112.38 Est GFR (CKD-EPI)NonAf 96.97 POC Glucometer 191 Random Glucose 207 H Lactic Acid 1.9 Calcium 8.9 Magnesium 1.9 07/21/19 07/21/19 05:36 11:23 Sodium Potassium Chloride Carbon Dioxide Anion Gap BUN Creatinine Est GFR (CKD-EPI)AfAm Est GFR (CKD-EPI)NonAf POC Glucometer 122 229 Random Glucose Lactic Acid Calcium Magnesium Microbiology 07/19/19 00:00 Urine - Urine Clean Catch Urine Culture - Final Normal Urogenital Mary 07/18/19 21:55 Blood - Peripheral Venous Blood Culture - Preliminary NO GROWTH OBTAINED AFTER 48 HOURS, INCUBATION TO CONTINUE FOR 3 DAYS. 07/18/19 21:55 Blood - Peripheral Venous Blood Culture - Preliminary NO GROWTH OBTAINED AFTER 48 HOURS, INCUBATION TO CONTINUE FOR 3 DAYS. Active Medications Generic Name Dose Route Start Last Admin Trade Name Freq PRN Reason Stop Dose Admin Acetaminophen 650 mg 07/19/19 04:05 Tylenol - PO Q4H PRN FEVER Heparin Sodium (Porcine) 5,000 unit 07/19/19 06:00 07/21/19 06:14 Heparin - SQ 5,000 unit TID [facility] Administration Insulin Aspart 1 vial 07/19/19 07:00 07/21/19 11:24 Novolog Vial Sliding Scale - SQ 4 units ACHS [facility] Administration Protocol ASSESSMENT/PLAN: 69 y/o M with PMHx of HTN, DMII, CVA (with Residual LUE, LLE weakness, Left facial droop) presented for sudden onset weakness/fatigue. 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 I reviewed the resident's note and discussed the case with the resident. I agree with the resident's findings and plan as documented. SUBJECTIVE: OBJECTIVE: ASSESSMENT AND PLAN:
[2019-07-21] MEDS ORDERED: INSULIN (NOVOLOG) ASPART 100 UNITS/ML 10ML VIAL ONE (21:32)
[2019-07-22] MEDS: HEPARIN NA (PORCINE) 5,000 UNITS/ML 1ML VIAL SQ SCH (05:16)
[2019-07-22] MEDS: INSULIN SLIDING SCALE (NOVOLOG) 1 VIAL SQ SCH (06:02)
[2019-07-22 10:44] VITALS: BP 149/50; PULSE 87; TEMP 98
--- NOTE | 2019-07-22 18:08 | PN ---
Teaching Attending Note Name of Resident: Kaden Mckeon ATTENDING PHYSICIAN STATEMENT I saw and evaluated the patient. I reviewed the resident's note and discussed the case with the resident. I agree with the resident's findings and plan as documented. SUBJECTIVE: Feels much better. Myalgia, fever, lethargy resolved. OBJECTIVE: Afebrile, hemodynamically stable. Last Vital Signs Temp Pulse Resp BP Pulse Ox 98 F 87 18 149/50 L 99 07/22/19 10:00 07/22/19 10:00 07/22/19 10:00 07/22/19 10:00 07/21/19 21:00 HEET: Atramatic, Normocephalic. HEART: S1S2, RRR LUNGS: Clear to auscultation ABDOMEN: Soft, non-tender, non-distended, normal BS EXTREMITIES: No edema, no calf tenderness. NEURO: AAO x 3. Tone/Power normal all 4 extremities. Laboratory Tests 07/18/19 07/18/19 07/18/19 21:55 21:55 21:55 WBC 6.8 RBC 4.11 Hgb 11.3 L Hct 36.1 MCV 87.9 MCH 27.6 MCHC 31.4 L RDW 14.5 Plt Count 198 MPV 8.7 Absolute Neuts (auto) 5.9 Neutrophils % 86.7 H Lymphocytes % 3.7 L Monocytes % 8.4 Eosinophils % 0.9 Basophils % 0.3 Nucleated RBC % 0 PT with INR INR PTT (Actin FS) VBG pH POC VBG pCO2 POC VBG pO2 VBG HCO3 VBG O2 Sat ([place]ago) VBG Base Excess Sodium 139 Potassium 3.5 Chloride 104 Carbon Dioxide 28 Anion Gap 8 BUN 12.6 Creatinine 0.7 Est GFR (CKD-EPI)AfAm 112.38 Est GFR (CKD-EPI)NonAf 96.97 POC Glucometer Random Glucose 164 H Lactic Acid Calcium 9.0 Phosphorus Magnesium Total Bilirubin 0.5 AST 57 H ALT 46 Alkaline Phosphatase 93 Troponin I < 0.02 Total Protein 6.8 Albumin 3.5 Urine Color Urine Appearance Urine pH Ur Specific [place] Urine Protein Urine Glucose (UA) Urine Ketones Urine Blood Urine Nitrite Urine Bilirubin Urine Urobilinogen Ur Leukocyte Esterase Urine WBC (Auto) Urine RBC (Auto) Urine Casts (Auto) U Epithel Cells (Auto) U Sm Round Cell (Auto) Urine Bacteria (Auto) Urine Yeast (Auto) Influenza A (Rapid) Influenza B (Rapid) RSV Rapid 07/18/19 07/18/19 07/18/19 21:55 21:55 21:55 WBC RBC Hgb Hct MCV MCH MCHC RDW Plt Count MPV Absolute Neuts (auto) Neutrophils % Lymphocytes % Monocytes % Eosinophils % Basophils % Nucleated RBC % PT with INR Cancelled INR Cancelled PTT (Actin FS) VBG pH 7.41 POC VBG pCO2 42.4 POC VBG pO2 57.7 H VBG HCO3 26.3 VBG O2 Sat ([place]ago) 88.1 H VBG Base Excess 1.9 Sodium Potassium Chloride Carbon Dioxide Anion Gap BUN Creatinine Est GFR (CKD-EPI)AfAm Est GFR (CKD-EPI)NonAf POC Glucometer Random Glucose Lactic Acid 2.2 H* Calcium Phosphorus Magnesium Total Bilirubin AST ALT Alkaline Phosphatase Troponin I Total Protein Albumin Urine Color Urine Appearance Urine pH Ur Specific [place] Urine Protein Urine Glucose (UA) Urine Ketones Urine Blood Urine Nitrite Urine Bilirubin Urine Urobilinogen Ur Leukocyte Esterase Urine WBC (Auto) Urine RBC (Auto) Urine Casts (Auto) U Epithel Cells (Auto) U Sm Round Cell (Auto) Urine Bacteria (Auto) Urine Yeast (Auto) Influenza A (Rapid) Influenza B (Rapid) RSV Rapid 07/18/19 07/19/19 07/19/19 21:58 00:00 00:50 WBC RBC Hgb Hct MCV MCH MCHC RDW Plt Count MPV Absolute Neuts (auto) Neutrophils % Lymphocytes % Monocytes % Eosinophils % Basophils % Nucleated RBC % PT with INR 12.20 INR 1.03 PTT (Actin FS) 32.8 VBG pH POC VBG pCO2 POC VBG pO2 VBG HCO3 VBG O2 Sat (Chago) VBG Base Excess Sodium Potassium Chloride Carbon Dioxide Anion Gap BUN Creatinine Est GFR (CKD-EPI)AfAm Est GFR (CKD-EPI)NonAf POC Glucometer Random Glucose Lactic Acid 4.2 H* Calcium Phosphorus Magnesium Total Bilirubin AST ALT Alkaline Phosphatase Troponin I Total Protein Albumin Urine Color Yellow Urine Appearance Cloudy Urine pH 5.0 Ur Specific [place] 1.023 Urine Protein 2+ H Urine Glucose (UA) 2+ H Urine Ketones 1+ H Urine Blood 2+ H Urine Nitrite Negative Urine Bilirubin Negative Urine Urobilinogen 0.2 Ur Leukocyte Esterase Negative Urine WBC (Auto) 1 Urine RBC (Auto) 19.7 Urine Casts (Auto) 14 U Epithel Cells (Auto) 4.6 U Sm Round Cell (Auto) Seen Urine Bacteria (Auto) 13.5 Urine Yeast (Auto) Seen Influenza A (Rapid) Influenza B (Rapid) RSV Rapid 07/19/19 07/19/19 07/19/19 04:46 05:06 06:27 WBC RBC Hgb Hct MCV MCH MCHC RDW Plt Count MPV Absolute Neuts (auto) Neutrophils % Lymphocytes % Monocytes % Eosinophils % Basophils % Nucleated RBC % PT with INR INR PTT (Actin FS) VBG pH POC VBG pCO2 POC VBG pO2 VBG HCO3 VBG O2 Sat ([place]ago) VBG Base Excess Sodium Potassium Chloride Carbon Dioxide Anion Gap BUN Creatinine Est GFR (CKD-EPI)AfAm Est GFR (CKD-EPI)NonAf POC Glucometer 148 Random Glucose Lactic Acid Calcium Phosphorus Magnesium Total Bilirubin AST ALT Alkaline Phosphatase Troponin I Total Protein Albumin Urine Color Urine Appearance Urine pH Ur Specific [place] Urine Protein Urine Glucose (UA) Urine Ketones Urine Blood Urine Nitrite Urine Bilirubin Urine Urobilinogen Ur Leukocyte Esterase Urine WBC (Auto) Urine RBC (Auto) Urine Casts (Auto) U Epithel Cells (Auto) U Sm Round Cell (Auto) Urine Bacteria (Auto) Urine Yeast (Auto) Influenza A (Rapid) Negative Influenza B (Rapid) Negative RSV Rapid Negative 07/19/19 07/19/19 07/19/19 08:09 08:09 11:50 WBC 6.4 RBC 3.89 L Hgb 10.8 L Hct 33.9 L MCV 87.3 MCH 27.8 MCHC 31.9 L RDW 14.5 Plt Count 183 MPV 8.2 Absolute Neuts (auto) 5.2 Neutrophils % 80.7 Lymphocytes % 9.2 D Monocytes % 7.7 Eosinophils % 2.0 D Basophils % 0.4 Nucleated RBC % 0 PT with INR INR PTT (Actin FS) VBG pH POC VBG pCO2 POC VBG pO2 VBG HCO3 VBG O2 Sat ([place]ago) VBG Base Excess Sodium 142 Potassium 4.2 Chloride 107 Carbon Dioxide 28 Anion Gap 6 L BUN 11.5 Creatinine 0.8 Est GFR (CKD-EPI)AfAm 106.38 Est GFR (CKD-EPI)NonAf 91.79 POC Glucometer 66 Random Glucose 106 Lactic Acid Calcium 8.9 Phosphorus 2.8 Magnesium 1.5 L Total Bilirubin 0.4 AST 50 H ALT 58 Alkaline Phosphatase 85 Troponin I Total Protein 6.2 L Albumin 3.1 L Urine Color Urine Appearance Urine pH Ur Specific [place] Urine Protein Urine Glucose (UA) Urine Ketones Urine Blood Urine Nitrite Urine Bilirubin Urine Urobilinogen Ur Leukocyte Esterase Urine WBC (Auto) Urine RBC (Auto) Urine Casts (Auto) U Epithel Cells (Auto) U Sm Round Cell (Auto) Urine Bacteria (Auto) Urine Yeast (Auto) Influenza A (Rapid) Influenza B (Rapid) RSV Rapid 07/19/19 07/19/19 07/20/19 17:00 21:26 11:33 WBC RBC Hgb Hct MCV MCH MCHC RDW Plt Count MPV Absolute Neuts (auto) Neutrophils % Lymphocytes % Monocytes % Eosinophils % Basophils % Nucleated RBC % PT with INR INR PTT (Actin FS) VBG pH POC VBG pCO2 POC VBG pO2 VBG HCO3 VBG O2 Sat ([place]ago) VBG Base Excess Sodium Potassium Chloride Carbon Dioxide Anion Gap BUN Creatinine Est GFR (CKD-EPI)AfAm Est GFR (CKD-EPI)NonAf POC Glucometer 95 129 202 Random Glucose Lactic Acid Calcium Phosphorus Magnesium Total Bilirubin AST ALT Alkaline Phosphatase Troponin I Total Protein Albumin Urine Color Urine Appearance Urine pH Ur Specific [place] Urine Protein Urine Glucose (UA) Urine Ketones Urine Blood Urine Nitrite Urine Bilirubin Urine Urobilinogen Ur Leukocyte Esterase Urine WBC (Auto) Urine RBC (Auto) Urine Casts (Auto) U Epithel Cells (Auto) U Sm Round Cell (Auto) Urine Bacteria (Auto) Urine Yeast (Auto) Influenza A (Rapid) Influenza B (Rapid) RSV Rapid 07/20/19 07/20/19 07/20/19 14:25 14:25 21:33 WBC RBC Hgb Hct MCV MCH MCHC RDW Plt Count MPV Absolute Neuts (auto) Neutrophils % Lymphocytes % Monocytes % Eosinophils % Basophils % Nucleated RBC % PT with INR INR PTT (Actin FS) VBG pH POC VBG pCO2 POC VBG pO2 VBG HCO3 VBG O2 Sat ([place]ago) VBG Base Excess Sodium 139 Potassium 3.7 Chloride 101 Carbon Dioxide 28 Anion Gap 9 BUN 10.6 Creatinine 0.7 Est GFR (CKD-EPI)AfAm 112.38 Est GFR (CKD-EPI)NonAf 96.97 POC Glucometer 191 Random Glucose 207 H Lactic Acid 1.9 Calcium 8.9 Phosphorus Magnesium 1.9 Total Bilirubin AST ALT Alkaline Phosphatase Troponin I Total Protein Albumin Urine Color Urine Appearance Urine pH Ur Specific [place] Urine Protein Urine Glucose (UA) Urine Ketones Urine Blood Urine Nitrite Urine Bilirubin Urine Urobilinogen Ur Leukocyte Esterase Urine WBC (Auto) Urine RBC (Auto) Urine Casts (Auto) U Epithel Cells (Auto) U Sm Round Cell (Auto) Urine Bacteria (Auto) Urine Yeast (Auto) Influenza A (Rapid) Influenza B (Rapid) RSV Rapid 07/21/19 07/21/19 07/21/19 05:36 11:23 16:51 WBC RBC Hgb Hct MCV MCH MCHC RDW Plt Count MPV Absolute Neuts (auto) Neutrophils % Lymphocytes % Monocytes % Eosinophils % Basophils % Nucleated RBC % PT with INR INR PTT (Actin FS) VBG pH POC VBG pCO2 POC VBG pO2 VBG HCO3 VBG O2 Sat ([place]ago) VBG Base Excess Sodium Potassium Chloride Carbon Dioxide Anion Gap BUN Creatinine Est GFR (CKD-EPI)AfAm Est GFR (CKD-EPI)NonAf POC Glucometer 122 229 192 Random Glucose Lactic Acid Calcium Phosphorus Magnesium Total Bilirubin AST ALT Alkaline Phosphatase Troponin I Total Protein Albumin Urine Color Urine Appearance Urine pH Ur Specific [place] Urine Protein Urine Glucose (UA) Urine Ketones Urine Blood Urine Nitrite Urine Bilirubin Urine Urobilinogen Ur Leukocyte Esterase Urine WBC (Auto) Urine RBC (Auto) Urine Casts (Auto) U Epithel Cells (Auto) U Sm Round Cell (Auto) Urine Bacteria (Auto) Urine Yeast (Auto) Influenza A (Rapid) Influenza B (Rapid) RSV Rapid 07/22/19 05:38 WBC RBC Hgb Hct MCV MCH MCHC RDW Plt Count MPV Absolute Neuts (auto) Neutrophils % Lymphocytes % Monocytes % Eosinophils % Basophils % Nucleated RBC % PT with INR INR PTT (Actin FS) VBG pH POC VBG pCO2 POC VBG pO2 VBG HCO3 VBG O2 Sat ([place]) VBG Base Excess Sodium Potassium Chloride Carbon Dioxide Anion Gap BUN Creatinine Est GFR (CKD-EPI)AfAm Est GFR (CKD-EPI)NonAf POC Glucometer 116 Random Glucose Lactic Acid Calcium Phosphorus Magnesium Total Bilirubin AST ALT Alkaline Phosphatase Troponin I Total Protein Albumin Urine Color Urine Appearance Urine pH Ur Specific [place] Urine Protein Urine Glucose (UA) Urine Ketones Urine Blood Urine Nitrite Urine Bilirubin Urine Urobilinogen Ur Leukocyte Esterase Urine WBC (Auto) Urine RBC (Auto) Urine Casts (Auto) U Epithel Cells (Auto) U Sm Round Cell (Auto) Urine Bacteria (Auto) Urine Yeast (Auto) Influenza A (Rapid) Influenza B (Rapid) RSV Rapid Dicharge Medications Medication Instructions Recorded Amlodipine Besylate 1.5 tab PO DAILY 07/21/19 Atorvastatin Ca [Lipitor] 40 mg PO HS 07/21/19 Glipizide [Glipizide ER] 10 mg PO DAILY 07/21/19 Lisinopril [Zestril] 40 mg PO DAILY 07/21/19 Metformin HCl [Glucophage] 1,000 mg PO BID 07/21/19 ASSESSMENT AND PLAN: 69 year old male with history of HTN, DM 2, Hx CVA with left hemiparesis who presented to the ED with weakness/myalgia/lethargy/fever. 1. SIRS secondary to Acute viral Illness (temp 100.4, HR 115 on presentation) No evidence of focal infection, septic screen negative. Afebrile, Hemodnamically Stable. 2. Hx CVA with mild Left hemiparesis - continue Lipitor. Does not appear to be on Aspirin, reason unclear - for out-patient Neurology follow up. Will attempt to reach PCP re: lack of anti-platelet therapy for secondary stroke prevention. 3. HTN - continue Lisinopril, Norvasc on discharge 4. DM 2 - Resume glipizide, metformin on discharge
--- NOTE | 2019-07-22 20:42 | DS ---
Physical Exam: SUBJECTIVE: Patient seen and examined OBJECTIVE: Vital Signs Period Temp Pulse Resp BP Sys/Dennis Pulse Ox Last 24 Hr 98 F-98.4 F 72-87 18-19 140-164/50-78 99 PHYSICAL EXAM GENERAL: A&Ox3, NAD HEAD: NCAT, moderate temporal wasting EYES: PERRL, EOMI, Left Chronic Lid lag ENT: Moist mucous membranes. NECK: No JVD LUNGS: CTAB. No wheezes, no crackles. HEART: Regular rate and rhythm, normal S1 and S2 without murmur ABDOMEN: Soft, nontender, not distended, no guarding, no rebound UPPER EXTREMITIES: Left contracted w/ diminished tester equipment LOWER EXTREMITIES: No peripheral edema. No calf tenderness NEUROLOGICAL: Cranial nerves II-XII intact. Normal speech. 3/5 Muscle strength in the LUE and LLE, 5/5 in the Right side, Gross sensation intact throughout. SKIN: Warm, dry LABS Laboratory Results - last 24 hr 07/22/19 05:38 POC Glucometer 116 HOSPITAL COURSE: 69 y/o M with PMHx of HTN, DMII, CVA (with Residual LUE, LLE weakness, Left facial droop) presented for sudden onset weakness/fatigue. While in the ED, patient was determined to febrile with tachycardia. No source of infection was found. (-)CXR, (-)UCX, (-)BCX, no leukocytosis. Symptomatic fatigue improved. Fever resolved without antibiotics. Patient deemed stable for discharge once LABOR CUSTODIAN was reestablished Date of Admission:07/19/19 Date of Discharge: 07/22/19 Minutes to complete discharge: 20 Discharge Summary Problems reviewed: Yes Reason For Visit: SYSTEMIC INFLAMMATORY RESPONSE SYNDROME (SIRS) Condition: Stable - Instructions Diet, Activity, Other Instructions: You presented to the hospital with weakness and were found to have a fever and increased heart rate which subsequently resolved. No obvious source of infection was found. Follow up with the following physicians: 1. PCP in one week, please call to schedule an appointment Please continue to monitor your diet as you need to intake less sugar and drink plenty of fluids. Continue all your other medications as prescribed Please return to the ER if you have any signs or symptoms of chest pain, shortness of breath, uncontrollable fever, chills, nausea, vomiting, numbness, tingling, or weakness in any part of your body, changes in vision, or slurred speech. Please return to the ER if symptoms persist, worsen, or new symptoms arise. Disposition: HOME - Home Medications Comprehensive Discharge Medication List: Ambulatory Orders Amlodipine Besylate 1.5 tab PO DAILY 07/21/19 Atorvastatin Ca [Lipitor] 40 mg PO HS 07/21/19 Glipizide [Glipizide ER] 10 mg PO DAILY 07/21/19 Lisinopril [Zestril] 40 mg PO DAILY 07/21/19 Metformin HCl [Glucophage] 1,000 mg PO BID 07/21/19 This patient is new to me today: No Emergency Visit: No Critical Care patient: No - Discharge Referral Referred to [facility] Med P.C.: No ATTENDING PHYSICIAN STATEMENT I saw and evaluated the patient. I reviewed the resident's note and discussed the case with the resident. I agree with the resident's findings and plan as documented. SUBJECTIVE: OBJECTIVE: ASSESSMENT AND PLAN:
== END 2019-07-22 12:24 | disposition home or self-care (01) | DRG 866 ==
LOC: JER 20:58 → JERBED 07-19 02:51 → J6S 07-19 05:44
PROVIDERS: ADMIT Internal Medicine
DX: B34.9 Viral infection, unspecified (principal); R65.10 Systemic inflammatory response syndrome (SIRS) of non-infectious origin without acute organ dysfunction; E87.2 Acidosis; I69.354 Hemiplegia and hemiparesis following cerebral infarction affecting left non-dominant side; R50.9 Fever, unspecified; R00.0 Tachycardia, unspecified; R53.1 Weakness; R79.89 Other specified abnormal findings of blood chemistry; I10 Essential (primary) hypertension; E86.0 Dehydration; E11.9 Type 2 diabetes mellitus without complications; D64.9 Anemia, unspecified
CPT/HCPCS: 36415; 71045-TC-FY; 80048; 80053; 81003; 82803; 82962; 83605; 83735; 84100; 84484; 85025; 85610; 85730; 87040; 87086; 87804; 87807; 93005; 93010; 97116-GP; 97162-GP; 99282-25; J0131; J1644; J7030

== ENCOUNTER 2019-11-09 16:52 | Inpatient (IN) | payer OTHER ==
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
--- NOTE | 2019-11-09 17:10 | PDOC ---
Attending Attestation - Resident Resident Name: Fly Umanzor - ED Attending Attestation I have performed the following: I have examined & evaluated the patient, The case was reviewed & discussed with the resident, I agree w/resident's findings & plan, Exceptions are as noted - HPI HPI: 11/09/19 18:32 69 yo male h/o prior cva residual left sided weakness, dm httn hld here with weakness, imbalance . pt states he normally transfers with assistance. today was at home with aid, trying to get from wheelchair to bed, suddently his right leg gave out underneath him with weakness he was unable to support his weight with his right leg, which he usually can do. aid helped him lower to the ground. pt also c/o pain in right small toe due to recent podiatry cut his nail too short. denies cp no palpitations. no loc. no head trauma. no f/c recentyly. pt states he was admitted with similar episode 3 weeks ago. - Physicial Exam PE: 11/09/19 18:34 awake alert left upper ext contracted at albow and wrist. speech clear. lungs clear bilat heart rrr no mrg abd soft nt nd ext wwp no edema. no calf tenderness. right leg 4/5 left leg 3/5 . right arm 5/5. speech clear, alert oriented x 3. skin warm and dry. right small toe small 1 mm scabbed lesion tip of toe. no drainage. no erythema. - Medical Decision Making 11/09/19 18:36 69 yo male with h/o prior cva left sided weakness here with right sided weakness. now on my exam pt with 4/5 strength right leg. per aid at bedside this is an acute change to be unable to stand on right. seems unrelated to pain in his foot. plan ct head labs r/o underlying infection anema or electrolyte abnormality.
[2019-11-09 17:29] LABS: BASO % 0.6 % (0-2.0); EOS % 2.6 % (0-4.5); HEMATOCRIT 37.4 % (35.4-49); HEMOGLOBIN 12.1 GM/dL (11.7-16.9); MCH 28.3 pg (25.7-33.7); MCHC 32.3 g/dl (32.0-35.9); MEAN CELL VOLUME 87.8 fl (80-96); MEAN PLT VOLUME 8.5 fl (7.5-11.1); MONO % 7.2 % (3.8-10.2); NEUT % 62.6 % (42.8-82.8); PLATELET COUNT 272 K/MM3 (134-434); RBC 4.26 M/mm3 (4.00-5.60); RDW 14.1 % (11.9-15.9); WHITE BLOOD COUNT 6.6 K/mm3 (4.0-10.0)
[2019-11-09 18:07] LABS: ALBUMIN 3.1 g/dl (3.4-5.0); BILIRUBIN,TOTAL 0.4 mg/dL (0.2-1); BLOOD UREA NITROGEN 13.9 mg/dL (7-18); CALCIUM 9.2 mg/dL (8.5-10.1); CREATININE 0.9 mg/dL (0.55-1.3); TOT PROT 7.3 g/dl (6.4-8.2)
--- NOTE | 2019-11-09 19:47 | CON.NEURO ---
Consult Consult Specialty:: Toro Referred by:: ER Reason for Consultation:: Imbalance - History of Present Illness History of Present Illness: 69-year-old right-handed man with multiple medical problem including Coronary artery disease History of prior CVA in the past. Residual lefthemiparesis. gait dysfunction Hypertension High cholesterol Diabetes Patient was at his usual status of health until today patient withgradual onset of difficulty with his balance and equilibrium. Patient was assisted by his home health aide instead of falling no report of any recent travel no report of any recent head trauma patient came into the emergency room I looked at the CAT scan of the head patient CAT scan of the head showed area of questionable suspicious activity in the right cerebellar hemisphere. Patient denies any nausea vomiting no headache. - History Source History Provided By: Patient, Medical Record Limitations to Obtaining History: Clinical Condition - Alcohol/Substance Use Hx Alcohol Use: No - Smoking History Smoking history: Never smoked Have you smoked in the past 12 months: No Home Medications - Allergies Allergies/Adverse Reactions: Allergies Allergy/AdvReac Type Severity Reaction Status Date / Time No Known Allergies Allergy Verified 07/18/19 23:00 - Home Medications Home Medications: Ambulatory Orders Amlodipine Besylate 1.5 tab PO DAILY 07/21/19 Atorvastatin Ca [Lipitor] 40 mg PO HS 07/21/19 Glipizide [Glipizide ER] 10 mg PO DAILY 07/21/19 Lisinopril [Zestril] 40 mg PO DAILY 07/21/19 Metformin HCl [Glucophage] 1,000 mg PO BID 07/21/19 Family Medical History Family History: Unremarkable Review of Systems - Review of Systems Neurological: reports: Dizziness, Headache, Numbness, Parasthesia, Syncope Physical Exam-Neuro Vital Signs: Vital Signs Temperature 97.2 F L 11/09/19 17:56 Pulse Rate 72 11/09/19 17:56 Respiratory Rate 17 11/09/19 17:56 Blood Pressure 176/82 H 11/09/19 17:56 O2 Sat by Pulse Oximetry (%) 99 11/09/19 18:47 Constitutional: Yes: Well Nourished Neck: Yes: WNL Cardiovascular: Yes: WNL Labs: CBC, BMP 11/09/19 17:25 11/09/19 17:25 - Neuro Exam Level Of Consciousness: Yes: Oriented to Person, Oriented to Place, Oriented to Time Eyes: Yes: PERRLA Speech: WNL Dominant Hand: Right Cranial Nerves II-XII Intact: Yes Gag: Present DTR's: 1+ Left Bicep, 1+ Right Bicep, 1+ Left Tricep, 1+ Right Tricep Response to light touch: Abnormal Response to pain prick: Abnormal Response to temperature: Abnormal Response to vibration: Abnormal Motor Strength: 3/5: Left Arm, Left Leg, 4/5: Right Arm, Right Leg Gait: Deferred Imaging - Results Cat Scan: Image Reviewed Problem List - Problems (1) CVA, old, hemiparesis Code(s): I69.359 - HEMIPLGA FOLLOWING CEREBRAL INFARCTION AFFECTING UNSP SIDE Assessment/Plan Cannot rule out posterior circulation cerebellar stroke Risk for stroke including being a man over 60 prior CVA Patient is not on any antiplatelet medication 1. Admit to the stroke unit. 2. Neuro checks every 2 hours. 3. Fall precautions. 4. SCD. 6. Echocardiogram/carotid Doppler/Holter monitor. 7. Tight blood pressure control. 8. Tight blood sugar control. 9. Statin. 10. Aspirin. 11. MRI of the brain with no contrast. Thank you very much for referring this patient for neurological consultation Tera Engel M.D.
--- NOTE | 2019-11-09 20:33 | HP ---
CHIEF COMPLAINT: GLENDY kaur PCP: PCP at [facility] HISTORY OF PRESENT ILLNESS: Josesito Molina is a 69 year old male with PMHx of CVA( 3 years ago, residual L side weakness), NIDDM, HTN, and HLD who presents with right leg weakness for the past week. Patient uses a wheelchair at home and has assistance realtime captioner via an aid. He states he was getting up from the toilet seat with the help of his home care consultant, when she was unable to hold him up and he experienced the weakness. He believes she was not strong enough to keep him up. He has been experiencing the right sided weakness for the past week. Patient denies completely falling down. He denies any loss of consciousness or head trauma today. Patient denies any other symptoms; no chest pain, shortness of breath, fever, chills, nausea, vomiting, or other problems at this time. No urinary complaints; last BM was this morning.Patient has received the flu shot this year. No recent travels or sick contact. ER course was notable for: (1)CT head negative (2)Neuro Consult Recent Travel:denies PAST MEDICAL HISTORY: see HPI PAST SURGICAL HISTORY: L eye surgery, knee surgery Social History: Smoking: prior smokng hx 10 pk year , quit 20 years ago Alcohol: denies Drugs: denies Allergies No Known Allergies Allergy (Verified 07/18/19 23:00) HOME MEDICATIONS: Home Medications Medication Instructions Recorded Amlodipine Besylate 1.5 tab PO DAILY 07/21/19 Atorvastatin Ca [Lipitor] 40 mg PO HS 07/21/19 Glipizide [Glipizide ER] 10 mg PO DAILY 07/21/19 Lisinopril [Zestril] 40 mg PO DAILY 07/21/19 Metformin HCl [Glucophage] 1,000 mg PO BID 07/21/19 REVIEW OF SYSTEMS CONSTITUTIONAL: Absent: fever, chills, diaphoresis, generalized weakness, malaise, loss of appetite, weight change HEENT: Absent: rhinorrhea, nasal congestion, throat pain, throat swelling, difficulty swallowing, mouth swelling, ear pain, eye pain, visual changes CARDIOVASCULAR: Absent: chest pain, syncope, palpitations, irregular heart rate, lightheadedness , peripheral edema RESPIRATORY: Absent: cough, shortness of breath, dyspnea with exertion, orthopnea, wheezing, stridor, hemoptysis GASTROINTESTINAL: Absent: abdominal pain, abdominal distension, nausea, vomiting, diarrhea, constipation, melena, hematochezia GENITOURINARY: Absent: dysuria, frequency, urgency, hesitancy, hematuria, flank pain, genital pain MUSCULOSKELETAL: Absent: myalgia, arthralgia, joint swelling, back pain, neck pain SKIN: Absent: rash, itching, pallor HEMATOLOGIC/IMMUNOLOGIC: Absent: easy bleeding, easy bruising, lymphadenopathy, frequent infections ENDOCRINE: Absent: unexplained weight gain, unexplained weight loss, heat intolerance, cold intolerance NEUROLOGIC: Present: weakness Absent: headache, dizziness, unsteady gait, seizure, mental status changes, bladder or bowel incontinence PSYCHIATRIC: Absent: anxiety, depression, suicidal or homicidal ideation, hallucinations. PHYSICAL EXAMINATION Vital Signs - 24 hr 11/09/19 11/09/19 11/09/19 17:04 17:56 18:47 Temperature 97.5 F L 97.2 F L Pulse Rate 78 Pulse Rate [ 72 Apical] Respiratory 16 17 Rate Blood Pressure 178/83 H Blood Pressure 176/82 H [Right Arm] O2 Sat by Pulse 98 99 99 Oximetry (%) GENERAL: Awake, alert, and fully oriented, in no acute distress. HEAD: Normal with no signs of trauma. EYES: Pupils equal, round and reactive to light, extraocular movements intact EARS, NOSE, THROAT: oropharynx clear without exudates. Moist mucous membranes. NECK: Normal range of motion, supple without lymphadenopathy, JVD, or masses. LUNGS: Breath sounds equal, clear to auscultation bilaterally. No accessory muscle use. HEART: Regular rate and rhythm, normal S1 and S2 without murmur, rub or gallop. ABDOMEN: Soft, nontender, not distended, normoactive bowel sounds MUSCULOSKELETAL:No CVA tenderness. UPPER EXTREMITIES: 2+ pulses, warm, well-perfused. No cyanosis. No clubbing. No peripheral edema. LUE contracted, 5/5 RUE strength LOWER EXTREMITIES: 2+ pulses, warm, well-perfused. No calf tenderness. No peripheral edema. 1/5 LLE strength, 3/5 RLE strength NEUROLOGICAL: mild L facial droop. Normal speech. SKIN: Warm, dry, normal turgor, no rashes or lesions noted, normal capillary refill. Laboratory Results - last 24 hr 11/09/19 11/09/19 11/09/19 17:02 17:25 17:25 WBC 6.6 RBC 4.26 Hgb 12.1 Hct 37.4 MCV 87.8 MCH 28.3 MCHC 32.3 RDW 14.1 Plt Count 272 D MPV 8.5 Absolute Neuts (auto) 4.2 Neutrophils % 62.6 D Lymphocytes % 27.0 D Monocytes % 7.2 Eosinophils % 2.6 Basophils % 0.6 Nucleated RBC % 0 Sodium 137 Potassium 5.0 Chloride 102 Carbon Dioxide 28 Anion Gap 7 L BUN 13.9 Creatinine 0.9 Est GFR (CKD-EPI)AfAm 101.36 Est GFR (CKD-EPI)NonAf 87.45 POC Glucometer 255 Random Glucose 252 H Calcium 9.2 Total Bilirubin 0.4 AST 33 ALT 19 Alkaline Phosphatase 94 Total Protein 7.3 Albumin [address]: Intracranial hemorrhage: None. Mass effect: None. Brain parenchyma: Likely chronic ischemic changes. Consider MRI if appropriate. ASSESSMENT/PLAN: Josesito Molina is a 69 year old male with PMHx of CVA( 3 years ago, residual L side weakness), NIDDM, HTN, and HLD who presents with right leg weakness for the past week. Pt is admitted to tele for CVA workup CVA/TIA vs ataxia - Head CT : see above. will order brain MRI for further eval - pending B12, homocystine - A1c, Lipid panel - pending carotid doppler - pending Echo - EKG reviewed: NSR, LVH, unchanged from prior - continue asa, statin - continue tight glycemic and BP control - fall precaution - continue neuro checks -PT HTN -continue lisinopril, norvasc ( [employer] [place] [phone]) - will give 2 x HCTZ 12.5 to better control BP DM - ISS, BGM -hold metformin, glipizide HLD -continue lipitor 40 - fasting lipid panel F/E/N -monitor lytes - diabetic /sodium controlled diet DVTppx: SCD Dispo: admit to tele Visit type - Emergency Visit Emergency Visit: Yes ED Registration Date: 11/09/19 Care time: The patient presented to the Emergency Department on the above date and was hospitalized for further evaluation of their emergent condition. - New Patient This patient is new to me today: Yes - Critical Care Critical Care patient: No ATTENDING PHYSICIAN STATEMENT I saw and evaluated the patient. I reviewed the resident's note and discussed the case with the resident. I agree with the resident's findings and plan as documented. SUBJECTIVE: OBJECTIVE: ASSESSMENT AND PLAN:
[2019-11-09] MEDS ORDERED: ACETAMINOPHEN 325 MG TABLET (FP) PO PRN (20:34)
[2019-11-09] MEDS ORDERED: HYDROCHLOROTHIAZIDE 12.5 MG CAPSULE (FP) PO ONE (21:00)
[2019-11-09 21:38] LABS: EPI CELLS 4.4 /HPF (0-5/HPF); HYALINE CASTS 3 /lpf (0-8); PH,URINE 5.5 (5.0-8.0); URINE APPEARANCE CLEAR; URINE BACTERIA 99.3 /hpf (NEGATIVE); URINE BILIRUBIN NEGATIVE (NEGATIVE); URINE COLOR YELLOW; URINE GLUCOSE (UA) 3+ (NEGATIVE); URINE KETONE NEGATIVE (NEGATIVE); URINE LEUK ESTERASE NEGATIVE (NEGATIVE); URINE NITRITE NEGATIVE (NEGATIVE); URINE PROTEIN 2+ (NEGATIVE); URINE WBC 3 /hpf (0-5)
[2019-11-09] MEDS ORDERED: HYDROCHLOROTHIAZIDE 25 MG TABLET (FP) ONE (21:55)
[2019-11-09] MEDS ORDERED: ATORVASTATIN CA 40 MG TABLET (FP) ONE (21:55)
[2019-11-09 21:58] LABS: URINE RBC 53.7 /hpf (0-4); YEAST NONE SEEN (NEGATIVE)
[2019-11-09] MEDS: INSULIN SLIDING SCALE (NOVOLOG) 1 VIAL SQ SCH (22:03)
[2019-11-09] MEDS: ATORVASTATIN CA 40 MG TABLET (FP) PO SCH (22:03)
--- NOTE | 2019-11-10 01:19 | PN ---
Teaching Attending Note Name of Resident: Shanti Napoles ATTENDING PHYSICIAN STATEMENT I saw and evaluated the patient. I reviewed the resident's note and discussed the case with the resident. I agree with the resident's findings and plan as documented. SUBJECTIVE: With a history of CAD, past CVA with residual left hemiparesis, hypertension, diabetes mellitus who presented with home health aide after he was found to have difficulty rising from his toilet on 11/09/2019. Was reported to have difficulty with his balance. There is no history of any fall as patient was helped by his home health aide. Patient was evaluated by Dr. Hair. OBJECTIVE: Last Vital Signs Temp Pulse Resp BP Pulse Ox 98.4 F 88 17 172/84 H 100 11/10/19 00:55 11/10/19 00:55 11/10/19 00:55 11/10/19 00:55 11/10/19 00:55 GENERAL: Well developed, well nourished. Awake and alert. No acute distress. HEENT: Normocephalic, atraumatic. PERRLA, EOMI. No conjunctival pallor. Sclera are non- icteric. Moist mucous membranes. Oropharynx is clear. NECK: Supple. Full ROM. No JVD. Carotid pulses 2+ and symmetric, without bruits. No thyromegaly. No lymphadenopathy. CARDIOVASCULAR: Regular rate and rhythm. No murmurs, rubs, or gallops. Distal pulses are 2+ and symmetric. PULMONARY: No evidence of respiratory distress. Lungs clear to auscultation bilaterally. No wheezing, rales or rhonchi. ABDOMINAL: Soft. Non-tender. Non-distended. No rebound or guarding. No organomegaly. Normoactive bowel sounds. MUSCULOSKELETAL Normal range of motion at all joints. No bony deformities or tenderness. No CVA tenderness. EXTREMITIES: No cyanosis. No clubbing. No edema. No calf tenderness. SKIN: Warm and dry. Normal capillary refill. No rashes. No jaundice. NEUROLOGICAL: Alert, awake, appropriate. Cranial nerves 2-12 intact. No deficits to light touch and temperature in face, upper extremities and lower extremities. Residual left upper and lower extremity hemiplegia.Left upper extremity and lower extremity contracture, Normoreflexic in the upper and lower extremities. Normal speech. PSYCHIATRIC: Cooperative. Good eye contact. Appropriate mood and affect. Abnormal Lab Results 11/09/19 11/09/19 17:25 21:04 Anion Gap 7 L Random Glucose 252 H Albumin 3.1 L Ur Specific [place] 1.037 H Urine Protein 2+ H Urine Glucose (UA) 3+ H Urine Blood 2+ H Imaging studies reviewed No acute intracranial pathology on [facility] head CT report ASSESSMENT AND PLAN: #TIA, possible ataxia Admit to [facility] Neuro checks every 4 hours Follow-up official head CT report Neurology consultDr. Solimon Bedrest and fall precautions Check orthostatics Moderate to high-dose statin Aspirin 81 mg p.o. daily Bedside swallow Evaluation Transthoracic echo Carotid Doppler ultrasound Physical therapy evaluation #hypertension Lisinopril, amlodipine #diabetes mellitus OBED inhibitor, aspirin, statin, NovoLog sliding scale, basal insulin #DVT prophylaxisheparin subcutaneously
[2019-11-10] MEDS ORDERED: HYDROCHLOROTHIAZIDE 12.5 MG CAPSULE (FP) PO ONE (03:22)
[2019-11-10] MEDS ORDERED: HYDROCHLOROTHIAZIDE 25 MG TABLET (FP) ONE (04:50)
[2019-11-10] MEDS: INSULIN SLIDING SCALE (NOVOLOG) 1 VIAL SQ SCH ×3 (08:00→19:24)
--- NOTE | 2019-11-10 09:43 | EKG ---
Test Reason : Blood Pressure : / mmHG Vent. Rate : 096 BPM Atrial Rate : 096 BPM P-R Int : 138 ms QRS Dur : 094 ms QT Int : 350 ms P-R-T Axes : 061 018 072 degrees QTc Int : 442 ms NORMAL SINUS RHYTHM MINIMAL VOLTAGE CRITERIA FOR LVH, MAY BE NORMAL VARIANT BORDERLINE ECG WHEN COMPARED WITH ECG OF 18-JUL-2019 23:28, NO SIGNIFICANT CHANGE WAS FOUND Confirmed by ELOISA SHARMA, URI ([id number]) on 11/10/2019 9:42:42 AM Referred By: Confirmed By:URI AMIN MD
[2019-11-10] MEDS ORDERED: ASPIRIN 81 MG CHEWABLE TABLETS PO SCH (10:00)
[2019-11-10] MEDS: LISINOPRIL 20 MG TABLET (FP) PO SCH (11:00)
[2019-11-10] MEDS: amLODIPine BESYLATE 5 MG TABLET (FP) PO SCH (11:00)
[2019-11-10] MEDS: CLOPIDOGREL BISULFATE 75 MG TABLET (FP) PO SCH (11:00)
[2019-11-10] MEDS: ASPIRIN 325 MG TABLET PO SCH (11:00)
--- NOTE | 2019-11-10 11:16 | PN ---
Teaching Attending Note Name of Resident: Kalen Anna ATTENDING PHYSICIAN STATEMENT I saw and evaluated the patient. I reviewed the resident's note and discussed the case with the resident. I agree with the resident's findings and plan as documented. Has [employer]IST but lives alone; neuro consult reviewed. Weakness when arising from toilet seat. R-sided weakness x1 week. Patient tells me that he actually was not weak at all and that he cut his right pinky toe while cutting his nails and had pain which led to him being unable to bear right on the right side which caused the fall. He specifically denies any weakness that was similar to his stroke symptoms. He is awake alert and oriented x3 and is able to do serial sevens, have insight into his statements, and carry on a normal conversation. He does have some residual effects from his previous strokes however he does not have any focal neurologic deficits right now and states that this is underwriting service representative of his neurologic baseline. He is when he can go home. 10 item review of systems was completed and is negative aside from history of present illness VS, labs, imaging reviewed NAD, AAO, resting comfortably in bed. RRR s1/2 no mgr Neck is supple, trachea midline, no ja LN Lungs CTAB with sym expansion NT ND +BS no ja organomegaly Patient with persisting post CVA focal abnormalities that have not acutely changed, he has 5 out of 5 strength in his right lower extremity at this juncture with no noted drift. NIH performed at this did not reveal any deviation from his standard examination, I that it likely returned to his baseline between last night and this morning NC AT [facility]ERR[facility] Normal mood, appropriate behavior, euthymic affect No skin breakdown or rashes noted ASSESSMENT AND PLAN:
[2019-11-10] MEDS ORDERED: CLOPIDOGREL BISULFATE 75 MG TABLET (FP) ONE (11:26)
[2019-11-10 12:05] LABS: BASO % 0.7 % (0-2.0); EOS % 2.6 % (0-4.5); HEMOGLOBIN 12.1 GM/dL (11.7-16.9); LYMPH % 42.6 % (8-40); MCH 28.4 pg (25.7-33.7); MCHC 32.7 g/dl (32.0-35.9); MEAN CELL VOLUME 86.9 fl (80-96); MEAN PLT VOLUME 8.2 fl (7.5-11.1); MONO % 5.7 % (3.8-10.2); NEUT % 48.4 % (42.8-82.8); PLATELET COUNT 275 K/MM3 (134-434); RBC 4.26 M/mm3 (4.00-5.60); RDW 13.7 % (11.9-15.9); WHITE BLOOD COUNT 4.9 K/mm3 (4.0-10.0)
[2019-11-10 12:40] LABS: ALBUMIN 3.4 g/dl (3.4-5.0); BILIRUBIN,TOTAL 0.6 mg/dL (0.2-1); CALCIUM 9.2 mg/dL (8.5-10.1); CREATININE 0.7 mg/dL (0.55-1.3); MAGNESIUM 1.8 mg/dL (1.8-2.4); PHOSPHOROUS 3.4 mg/dL (2.5-4.9); POTASSIUM 3.9 mmol/L (3.5-5.1); TOT PROT 7.5 g/dl (6.4-8.2)
--- NOTE | 2019-11-10 12:52 | ECHO ---
Name: RITU LENZ Exam:Adult Echocardiogram Study Date: 11/10/2019 11:55 AM Age: 69 yrs Reason For Study: CVA Height: 71 in Weight: 147 lb BSA: 1.9 m2 MMode/2D Measurements & Calculations IVSd: 1.3 cm Ao root diam: 3.1 cm LVIDd: 4.3 cm LA dimension: 3.2 cm LVIDs: 2.4 cm LVPWd: 1.1 cm EDV(Teich): 83.2 ml LVOT diam: 2.0 cm ESV(Teich): 19.8 ml LAV (MOD-bp): 25.3 ml Doppler Measurements & Calculations MV E max salvador: 49.5 cm/sec Ao V2 max: 92.3 cm/sec MV A max salvador: 79.1 cm/sec Ao max P.4 mmHg MV E/A: 0.63 MV dec time: 0.12 sec DAVE(V,D): 2.0 cm2 LV V1 max P.4 mmHg MR max salvador: 502.4 cm/sec LV V1 max: 58.7 cm/sec MR max P.8 mmHg PA V2 max: 85.5 cm/sec Med Peak E' Salvador: 5.3 cm/sec PA max P.9 mmHg Med E/e': 9.3 Lat Peak E' Salvador: 7.9 cm/sec Lat E/e': 6.2 PI Vmax: 145.2 cm/sec Procedure A complete two-dimensional transthoracic echocardiogram was performed (2D, M-mode, Doppler and color flow Doppler). Left Ventricle The left ventricle is normal in size. There is mild concentric left ventricular hypertrophy. Left kim tricular systolic function is normal. Ejection Fraction = 65-70%. Grade I diastolic dysfunction, (abnormal rel axation pattern). Ratio E/E'= 9. No regional wall motion abnormalities noted. Right Ventricle The right ventricle is normal size. The right ventricular systolic function is normal. Atria The left atrial size is normal. Right atrial size is normal. Mitral Valve There is mild mitral annular calcification. Mildly redundant posterior mitral valve leaflet. There is mild mitral regurgitation. Tricuspid Valve The tricuspid valve is normal in structure and function. There is mild tricuspid regurgitation. Aortic Valve The aortic valve is normal in structure and function. No aortic regurgitation is present. Pulmonic Valve The pulmonic valve is not well visualized. Trace pulmonic valvular regurgitation. Great Vessels The aortic root is normal size. Pericardium/Pleura There is no pericardial effusion. Interpretation Summary The left ventricle is normal in size. There is mild concentric left ventricular hypertrophy. Left ventricular systolic function is normal. No regional wall motion abnormalities noted. Ejection Fraction = 65-70%. Grade I diastolic dysfunction, (abnormal relaxation pattern). Ratio E/E'= 9 The right ventricular systolic function is normal. The left atrial size is normal. Right atrial size is normal. There is mild mitral annular calcification. Mildly redundant posterior mitral valve leaflet There is mild mitral regurgitation. There is mild tricuspid regurgitation. Trace pulmonic valvular regurgitation. There is no pericardial effusion. Babak John MD 11/10/2019 12:51 PM
[2019-11-10 12:57] LABS: ERYTHROCYTE SEDIMENTATION RATE 56 mm/hr (0-20)
--- NOTE | 2019-11-10 16:50 | PN ---
Physical Exam: SUBJECTIVE: Patient seen and examined at bedside this AM. Pt stating hes hungry. He has weakness in LUE, LLE as well as facial droop on left side of face. Pt denies any other complaints. OBJECTIVE: Vital Signs Period Temp Pulse Resp BP Sys/Dennis Pulse Ox Last 24 Hr 97.2 F-98.4 F 72-92 16-18 169-183/82-92 98-100 GENERAL: The patient is awake, alert, and fully oriented, in no acute distress. HEAD: Normal with no signs of trauma. EYES: PERRL, extraocular movements intact, sclera anicteric, conjunctiva clear. No ptosis. NECK: Trachea midline, full range of motion, supple. LUNGS: Breath sounds equal, clear to auscultation bilaterally, no wheezes, no crackles, no accessory muscle use. HEART: Regular rate and rhythm, S1, S2 without murmur, rub or gallop. ABDOMEN: Soft, nontender, nondistended, normoactive bowel sounds, no guarding, no rebound. EXTREMITIES: 2+ pulses, warm, well-perfused, no edema. NEUROLOGICAL: LUE weakness 2/5 RLE weakness, sensation b/l intact, LLE 3/5. assymetric weakness in left side. SKIN: Warm, dry, normal turgor, no rashes or lesions noted Laboratory Results - last 24 hr 11/09/19 11/09/19 11/09/19 17:02 17:25 17:25 WBC 6.6 RBC 4.26 Hgb 12.1 Hct 37.4 MCV 87.8 MCH 28.3 MCHC 32.3 RDW 14.1 Plt Count 272 D MPV 8.5 Absolute Neuts (auto) 4.2 Neutrophils % 62.6 D Lymphocytes % 27.0 D Monocytes % 7.2 Eosinophils % 2.6 Basophils % 0.6 Nucleated RBC % 0 ESR Sodium 137 Potassium 5.0 Chloride 102 Carbon Dioxide 28 Anion Gap 7 L BUN 13.9 Creatinine 0.9 Est GFR (CKD-EPI)AfAm 101.36 Est GFR (CKD-EPI)NonAf 87.45 POC Glucometer 255 Random Glucose 252 H Hemoglobin A1c % Calcium 9.2 Phosphorus Magnesium Total Bilirubin 0.4 AST 33 ALT 19 Alkaline Phosphatase 94 Total Protein 7.3 Albumin 3.1 L Triglycerides Cholesterol Total LDL Cholesterol HDL Cholesterol Vitamin B12 1082 H TSH Free T4 Thyroxine (T4) Urine Color Urine Appearance Urine pH Ur Specific Vermilion Urine Protein Urine Glucose (UA) Urine Ketones Urine Blood Urine Nitrite Urine Bilirubin Urine Urobilinogen Ur Leukocyte Esterase Urine WBC (Auto) Urine RBC (Auto) Urine Casts (Auto) U Epithel Cells (Auto) Urine Bacteria (Auto) Urine Yeast (Auto) 11/09/19 11/09/19 11/10/19 21:04 22:01 06:00 WBC RBC Hgb Hct MCV MCH MCHC RDW Plt Count MPV Absolute Neuts (auto) Neutrophils % Lymphocytes % Monocytes % Eosinophils % Basophils % Nucleated RBC % ESR Sodium Potassium Chloride Carbon Dioxide Anion Gap BUN Creatinine Est GFR (CKD-EPI)AfAm Est GFR (CKD-EPI)NonAf POC Glucometer 211 Random Glucose Hemoglobin A1c % 8.6 H Calcium Phosphorus Magnesium Total Bilirubin AST ALT Alkaline Phosphatase Total Protein Albumin Triglycerides Cholesterol Total LDL Cholesterol HDL Cholesterol Vitamin B12 TSH Free T4 Thyroxine (T4) Urine Color Yellow Urine Appearance Clear Urine pH 5.5 Ur Specific Vermilion 1.037 H Urine Protein 2+ H Urine Glucose (UA) 3+ H Urine Ketones Negative Urine Blood 2+ H Urine Nitrite Negative Urine Bilirubin Negative Urine Urobilinogen 1.0 Ur Leukocyte Esterase Negative Urine WBC (Auto) 3 Urine RBC (Auto) 53.7 Urine Casts (Auto) 3 U Epithel Cells (Auto) 4.4 Urine Bacteria (Auto) 99.3 Urine Yeast (Auto) None seen 11/10/19 11/10/19 11/10/19 07:12 11:05 11:25 WBC 4.9 RBC 4.26 Hgb 12.1 Hct 37.0 MCV 86.9 MCH 28.4 MCHC 32.7 RDW 13.7 Plt Count 275 MPV 8.2 Absolute Neuts (auto) 2.3 Neutrophils % 48.4 D Lymphocytes % 42.6 H D Monocytes % 5.7 Eosinophils % 2.6 Basophils % 0.7 Nucleated RBC % 0 ESR 56 H Sodium 134 L Potassium 3.9 Chloride 96 L Carbon Dioxide 33 H Anion Gap 6 L BUN 12.0 Creatinine 0.7 Est GFR (CKD-EPI)AfAm 112.38 Est GFR (CKD-EPI)NonAf 96.97 POC Glucometer 154 Random Glucose 223 H Hemoglobin A1c % Calcium 9.2 Phosphorus 3.4 Magnesium 1.8 Total Bilirubin 0.6 AST 13 L ALT 17 Alkaline Phosphatase 95 Total Protein 7.5 Albumin 3.4 Triglycerides Cholesterol Total LDL Cholesterol HDL Cholesterol Vitamin B12 TSH 0.20 L Free T4 Thyroxine (T4) Urine Color Urine Appearance Urine pH Ur Specific Vermilion Urine Protein Urine Glucose (UA) Urine Ketones Urine Blood Urine Nitrite Urine Bilirubin Urine Urobilinogen Ur Leukocyte Esterase Urine WBC (Auto) Urine RBC (Auto) Urine Casts (Auto) U Epithel Cells (Auto) Urine Bacteria (Auto) Urine Yeast (Auto) 11/10/19 11:25 WBC RBC Hgb Hct MCV MCH MCHC RDW Plt Count MPV Absolute Neuts (auto) Neutrophils % Lymphocytes % Monocytes % Eosinophils % Basophils % Nucleated RBC % ESR Sodium Potassium Chloride Carbon Dioxide Anion Gap BUN Creatinine Est GFR (CKD-EPI)AfAm Est GFR (CKD-EPI)NonAf POC Glucometer Random Glucose Hemoglobin A1c % Calcium Phosphorus Magnesium Total Bilirubin AST ALT Alkaline Phosphatase Total Protein Albumin Triglycerides 57 Cholesterol 124 Total LDL Cholesterol 65 HDL Cholesterol 52 Vitamin B12 TSH Free T4 1.51 H Thyroxine (T4) 13.7 Urine Color Urine Appearance Urine pH Ur Specific Vermilion Urine Protein Urine Glucose (UA) Urine Ketones Urine Blood Urine Nitrite Urine Bilirubin Urine Urobilinogen Ur Leukocyte Esterase Urine WBC (Auto) Urine RBC (Auto) Urine Casts (Auto) U Epithel Cells (Auto) Urine Bacteria (Auto) Urine Yeast (Auto) Active Medications Generic Name Dose Route Start Last Admin Trade Name Freq PRN Reason Stop Dose Admin Acetaminophen 650 mg 11/09/19 20:34 Tylenol - PO Q6H PRN PAIN LEVEL 7 - 10 Amlodipine Besylate 7.5 mg 11/10/19 10:00 11/10/19 11:00 Norvasc - PO 7.5 mg DAILY KIMBERLY Administration Aspirin 325 mg 11/10/19 10:00 11/10/19 11:00 Asa - PO 325 mg DAILY KIMBERLY Administration Atorvastatin Calcium 40 mg 11/09/19 22:00 11/09/19 22:03 Lipitor - PO 40 mg HS KIMBERLY Administration Clopidogrel Bisulfate 75 mg 11/10/19 10:00 11/10/19 11:00 Plavix - PO 75 mg DAILY KIMBERLY Administration Insulin Aspart 1 vial 11/09/19 22:00 11/10/19 13:33 Novolog Vial Sliding Scale - SQ 4 unit ACHS KIMBERLY Administration Protocol Lisinopril 40 mg 11/10/19 10:00 11/10/19 11:00 Prinivil PO 40 mg DAILY KIMBERLY Administration ASSESSMENT/PLAN: HEAD CT: Intracranial hemorrhage: None. Mass effect: None. Brain parenchyma: Likely chronic ischemic changes. Consider MRI if appropriate. ASSESSMENT/PLAN: Josesito Molina is a 69 year old male with PMHx of CVA( 3 years ago, residual L side weakness), NIDDM, HTN, and HLD who presents with right leg weakness for the past week. Pt is admitted to tele for CVA workup Rt toe ulcer vs TIA - c/o Rt 5th toe pain as cause of fall but denies weakness on end of the day questioning. - Rt foot xray to r/o fracture - Head CT: see above. will order brain MRI for further eval - [id number] - A1c, Lipid panel - asa 325, 75 plavix started. - MRI pending - carotid doppler atherosclerotic but no hemodynamically stenosis - pending Echo - EKG reviewed: NSR, LVH, unchanged from prior - continue asa, statin - continue tight glycemic and BP control - fall precaution - continue neuro checks q2h - PT eval recommended HTN -continue lisinopril, norvasc ( [employer] [place] [phone]) - will give 2 x HCTZ 12.5 to better control BP DM - ISS, BGM -hold metformin, glipizide HLD -continue lipitor 40 - fasting lipid panel F/E/N -monitor lytes - diabetic /sodium controlled diet DVTppx: SCD Dispo: admit to tele Visit type - Emergency Visit Emergency Visit: Yes ED Registration Date: 11/09/19 Care time: The patient presented to the Emergency Department on the above date and was hospitalized for further evaluation of their emergent condition. - New Patient This patient is new to me today: Yes Date on this admission: 11/10/19 - Critical Care Critical Care patient: No - Discharge Referral Referred to [facility] Med P.C.: No ATTENDING PHYSICIAN STATEMENT I saw and evaluated the patient. I reviewed the resident's note and discussed the case with the resident. I agree with the resident's findings and plan as documented. SUBJECTIVE: OBJECTIVE: ASSESSMENT AND PLAN:
--- NOTE | 2019-11-10 19:37 | PN ---
Progress Note, Physician History of Present Illness: events noted Chart reviwed alert Awake still in [facility] ER MRi and Echo is normal - Current Medication List Current Medications: Active Medications Acetaminophen (Tylenol -) 650 mg PO Q6H PRN PRN Reason: PAIN LEVEL 7 - 10 Amlodipine Besylate (Norvasc -) 7.5 mg PO DAILY [facility] Last Admin: 11/10/19 11:00 Dose: 7.5 mg Aspirin (Asa -) 325 mg PO DAILY [facility] Last Admin: 11/10/19 11:00 Dose: 325 mg Atorvastatin Calcium (Lipitor -) 40 mg PO HS [facility] Last Admin: 11/09/19 22:03 Dose: 40 mg Clopidogrel Bisulfate (Plavix -) 75 mg PO DAILY [facility] Last Admin: 11/10/19 11:00 Dose: 75 mg Insulin Aspart (Novolog Vial Sliding Scale -) 1 vial SQ [facility]; Protocol Last Admin: 11/10/19 19:24 Dose: 2 unit Lisinopril (Prinivil) 40 mg PO DAILY [facility] Last Admin: 11/10/19 11:00 Dose: 40 mg - Objective Vital Signs: Vital Signs Temperature 98.2 F 11/10/19 19:00 Pulse Rate 89 11/10/19 19:00 Respiratory Rate 18 11/10/19 19:00 Blood Pressure 183/96 H 11/10/19 19:00 O2 Sat by Pulse Oximetry (%) 100 11/10/19 19:00 Constitutional: Yes: Well Nourished Eyes: Yes: WNL HENT: Yes: WNL Neurological: Yes: Alert, Oriented, Babinski negative ...Motor Strength: WNL, LUE (0), LLE (2) Labs: CBC, BMP 11/10/19 11:05 11/10/19 11:25 Problem List - Problems (1) CVA, old, hemiparesis Assessment/Plan: fall precautions ASA Plavix 75 DC home PT as OP Thanks Code(s): I69.359 - HEMIPLGA FOLLOWING CEREBRAL INFARCTION AFFECTING UNSP SIDE
[2019-11-11] MEDS ORDERED: ATORVASTATIN CA 40 MG TABLET (FP) ONE (00:19)
[2019-11-11] MEDS ORDERED: INSULIN (NOVOLOG) ASPART 100 UNITS/ML 10ML VIAL ONE ×2 (00:48→07:11)
[2019-11-11] MEDS: INSULIN SLIDING SCALE (NOVOLOG) 1 VIAL SQ SCH ×5 (00:55→22:17)
[2019-11-11] MEDS: ATORVASTATIN CA 40 MG TABLET (FP) PO SCH ×2 (00:55→22:19)
[2019-11-11 07:46] LABS: BASO % 0.5 % (0-2.0); EOS % 2.1 % (0-4.5); HEMATOCRIT 34.6 % (35.4-49); HEMOGLOBIN 11.4 GM/dL (11.7-16.9); LYMPH % 27.8 % (8-40); MCH 28.4 pg (25.7-33.7); MCHC 32.9 g/dl (32.0-35.9); MEAN CELL VOLUME 86.3 fl (80-96); MEAN PLT VOLUME 8.2 fl (7.5-11.1); MONO % 8.5 % (3.8-10.2); NEUT % 61.1 % (42.8-82.8); PLATELET COUNT 261 K/MM3 (134-434); RBC 4.01 M/mm3 (4.00-5.60); RDW 13.8 % (11.9-15.9); WHITE BLOOD COUNT 5.8 K/mm3 (4.0-10.0)
[2019-11-11 08:19] LABS: BILIRUBIN,TOTAL 0.2 mg/dL (0.2-1); BLOOD UREA NITROGEN 14.7 mg/dL (7-18); CALCIUM 8.8 mg/dL (8.5-10.1); CREATININE 0.8 mg/dL (0.55-1.3); POTASSIUM 3.5 mmol/L (3.5-5.1); TOT PROT 6.8 g/dl (6.4-8.2)
[2019-11-11] MEDS: CLOPIDOGREL BISULFATE 75 MG TABLET (FP) PO SCH (09:27)
[2019-11-11] MEDS: ASPIRIN 325 MG TABLET PO SCH (09:27)
[2019-11-11] MEDS: amLODIPine BESYLATE 5 MG TABLET (FP) PO SCH (09:28)
[2019-11-11] MEDS: LISINOPRIL 20 MG TABLET (FP) PO SCH (09:29)
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
--- NOTE | 2019-11-11 16:15 | PN ---
Physical Exam: SUBJECTIVE: Patient seen and examined at bedside this am. No acute events other than hyperglycemia which was managed appropriately. Pt denies any complaints. OBJECTIVE: Vital Signs Period Temp Pulse Resp BP Sys/Dennis Pulse Ox Last 24 Hr 97.3 F-98.2 F 80-108 14-18 148-183/67-96 99-100 GENERAL: The patient is awake, alert, and fully oriented, in no acute distress. HEAD: Normal with no signs of trauma. NECK: supple. LUNGS: Breath sounds equal, clear to auscultation bilaterally, no wheezes, no crackles, no accessory muscle use. HEART: Regular rate and rhythm, S1, S2 without murmur, rub or gallop. ABDOMEN: Soft, nontender, nondistended, normoactive bowel sounds, no guarding, no rebound. EXTREMITIES: cooler pulses, warm, well-perfused, no edema. NEUROLOGICAL: Normal speech, gait not observed. LUE contracted, 2/5 RLE spastic unable to extend his knee, areflexia, sensation b/l intact, LLE 3/5 strength. SKIN: Warm, dry, normal turgor, Rt fifth toe small ulcer Laboratory Results - last 24 hr 11/10/19 11/11/19 11/11/19 18:56 00:25 06:47 WBC RBC Hgb Hct MCV MCH MCHC RDW Plt Count MPV Absolute Neuts (auto) Neutrophils % Lymphocytes % Monocytes % Eosinophils % Basophils % Nucleated RBC % Sodium Potassium Chloride Carbon Dioxide Anion Gap BUN Creatinine Est GFR (CKD-EPI)AfAm Est GFR (CKD-EPI)NonAf POC Glucometer 204 384 163 Random Glucose Calcium Total Bilirubin AST ALT Alkaline Phosphatase Total Protein Albumin 11/11/19 11/11/19 11/11/19 07:28 07:28 11:52 WBC 5.8 RBC 4.01 Hgb 11.4 L Hct 34.6 L MCV 86.3 MCH 28.4 MCHC 32.9 RDW 13.8 Plt Count 261 MPV 8.2 Absolute Neuts (auto) 3.5 Neutrophils % 61.1 D Lymphocytes % 27.8 D Monocytes % 8.5 Eosinophils % 2.1 Basophils % 0.5 Nucleated RBC % 0 Sodium 136 Potassium 3.5 Chloride 99 Carbon Dioxide 31 Anion Gap 6 L BUN 14.7 Creatinine 0.8 Est GFR (CKD-EPI)AfAm 106.38 Est GFR (CKD-EPI)NonAf 91.79 POC Glucometer 309 Random Glucose 280 H Calcium 8.8 Total Bilirubin 0.2 AST 15 ALT 15 Alkaline Phosphatase 80 Total Protein 6.8 Albumin 3.0 L Active Medications Generic Name Dose Route Start Last Admin Trade Name Alexia PRN Reason Stop Dose Admin Acetaminophen 650 mg 11/09/19 20:34 Tylenol - PO Q6H PRN PAIN LEVEL 7 - 10 Amlodipine Besylate 7.5 mg 11/10/19 10:00 11/11/19 09:28 Norvasc - PO 7.5 mg DAILY KIMBERLY Administration Aspirin 325 mg 11/10/19 10:00 11/11/19 09:27 Asa - PO 325 mg DAILY KIMBERLY Administration Atorvastatin Calcium 40 mg 11/09/19 22:00 11/11/19 00:55 Lipitor - PO 40 mg HS KIMBERLY Administration Clopidogrel Bisulfate 75 mg 11/10/19 10:00 11/11/19 09:27 Plavix - PO 75 mg DAILY KIMBERLY Administration Insulin Aspart 1 vial 11/09/19 22:00 11/11/19 12:25 Novolog Vial Sliding Scale - SQ 8 unit ACHS KIMBERLY Administration Protocol Lisinopril 40 mg 11/10/19 10:00 11/11/19 09:29 Prinivil PO 40 mg DAILY KIMBERLY Administration ASSESSMENT/PLAN: HEAD CT: No signs of Intracranial hemorrhage. Mass effect: None. Brain parenchyma: Likely chronic ischemic changes. Consider MRI if appropriate. ASSESSMENT/PLAN: Josesito Molina is a 69 year old male with PMHx of CVA( 3 years ago, residual L side weakness), NIDDM, HTN, and HLD who presents with right leg weakness for the past week. Pt is admitted to the [facility] for CVA workup #Acute on chronic CVA - Head CT: see above. - [id number] - asa 325 mg, 75 mg plavix continue - MRI negative for acute infarction showing extensive chronic ischemic changes in white matter of both hemispheres with dilation of ventricles, Dr. Hair suggests c/w asa, plavix and f/u as o/p. - carotid doppler atherosclerotic but no hemodynamically stenosis - Echo showing grade I diastolic dysfunction, 65-70% EF, with mild concentric LVH. - EKG reviewed: NSR, LVH, unchanged from prior - continue asa, statin - continue tight glycemic and BP control - fall precaution - continue neuro checks q2h - PT eval recommended #Rt toe ulcer/RLE stenosis - c/ot 5th toe pain as cause of fall but denies weakness on end of the day questioning. - Rt foot xray r/o fracture, tiny calcaneal spur. - no signs of infn - no signs of osteo - wound care (Dr. Phillips) consulted appreciate their recs. - duplex sono of RLE showing extensive atherosclerotic plaque present, without stenosis but ordered CTA and will notify night team to f/u CTA result if it shows acute limb ischemia they will page Dr. Phillips stat for angio. #HTN - stable -continue lisinopril 40, norvasc 7.5 DM - ISS, BGM -hold metformin, glipizide HLD -continue lipitor 40 F/E/N -monitor lytes - diabetic /sodium controlled diet DVTppx: SCD's on dual anticoagulant/anti-platelet therapy. Visit type - Emergency Visit Emergency Visit: Yes ED Registration Date: 11/09/19 Care time: The patient presented to the Emergency Department on the above date and was hospitalized for further evaluation of their emergent condition. - New Patient This patient is new to me today: No - Critical Care Critical Care patient: No - Discharge Referral Referred to [facility] Med [facility].C.: No ATTENDING PHYSICIAN STATEMENT I saw and evaluated the patient. I reviewed the resident's note and discussed the case with the resident. I agree with the resident's findings and plan as documented. SUBJECTIVE: OBJECTIVE: ASSESSMENT AND PLAN:
--- NOTE | 2019-11-11 18:23 | PN ---
Teaching Attending Note Name of Resident: Kalen Anna ATTENDING PHYSICIAN STATEMENT I saw and evaluated the patient. I reviewed the resident's note and discussed the case with the resident. I agree with the resident's findings and plan as documented. SUBJECTIVE: Feels well. Complains of tenderness 5th toe R foot and possible increased weakness LEs. OBJECTIVE: Afebrile, Hemodynamically Stable. Last Vital Signs Temp Pulse Resp BP Pulse Ox 97.4 F L 91 H 14 148/79 99 11/11/19 15:00 11/11/19 15:00 11/11/19 15:00 11/11/19 15:00 11/11/19 02:33 HEENT - Atramatic, Normocephalic. Heart - S1, S2, RRR Lungs - clear to auscultation Abdomen - soft non-tender. Bowel Sounds normal. Extremities - No edema, small abrasion/wound tip of R 5th toe. no surronding tenderness/erythema/swelling. RLE weaker pulses, cool compared to L. Neuro - AAO x 3. Decreased Power LEs - RLE 4/5, LLE 2-3/5. Laboratory Results - last 24 hr 11/10/19 11/11/19 11/11/19 18:56 00:25 06:47 WBC RBC Hgb Hct MCV MCH MCHC RDW Plt Count MPV Absolute Neuts (auto) Neutrophils % Lymphocytes % Monocytes % Eosinophils % Basophils % Nucleated RBC % Sodium Potassium Chloride Carbon Dioxide Anion Gap BUN Creatinine Est GFR (CKD-EPI)AfAm Est GFR (CKD-EPI)NonAf POC Glucometer 204 384 163 Random Glucose Calcium Total Bilirubin AST ALT Alkaline Phosphatase Total Protein Albumin 11/11/19 11/11/19 11/11/19 07:28 07:28 11:52 WBC 5.8 RBC 4.01 Hgb 11.4 L Hct 34.6 L MCV 86.3 MCH 28.4 MCHC 32.9 RDW 13.8 Plt Count 261 MPV 8.2 Absolute Neuts (auto) 3.5 Neutrophils % 61.1 D Lymphocytes % 27.8 D Monocytes % 8.5 Eosinophils % 2.1 Basophils % 0.5 Nucleated RBC % 0 Sodium 136 Potassium 3.5 Chloride 99 Carbon Dioxide 31 Anion Gap 6 L BUN 14.7 Creatinine 0.8 Est GFR (CKD-EPI)AfAm 106.38 Est GFR (CKD-EPI)NonAf 91.79 POC Glucometer 309 Random Glucose 280 H Calcium 8.8 Total Bilirubin 0.2 AST 15 ALT 15 Alkaline Phosphatase 80 Total Protein 6.8 Albumin 3.0 L 11/11/19 17:36 WBC RBC Hgb Hct MCV MCH MCHC RDW Plt Count MPV Absolute Neuts (auto) Neutrophils % Lymphocytes % Monocytes % Eosinophils % Basophils % Nucleated RBC % Sodium Potassium Chloride Carbon Dioxide Anion Gap BUN Creatinine Est GFR (CKD-EPI)AfAm Est GFR (CKD-EPI)NonAf POC Glucometer 337 Random Glucose Calcium Total Bilirubin AST ALT Alkaline Phosphatase Total Protein Albumin Current Medications Generic Name Dose Route Start Last Admin Trade Name Freq PRN Reason Stop Dose Admin Acetaminophen 650 mg 11/09/19 20:34 Tylenol - PO Q6H PRN PAIN LEVEL 7 - 10 Amlodipine Besylate 7.5 mg 11/10/19 10:00 11/11/19 09:28 Norvasc - PO 7.5 mg DAILY [facility] Administration Aspirin 325 mg 11/10/19 10:00 11/11/19 09:27 Asa - PO 325 mg DAILY [facility] Administration Atorvastatin Calcium 40 mg 11/09/19 22:00 11/11/19 00:55 Lipitor - PO 40 mg HS [facility] Administration Clopidogrel Bisulfate 75 mg 11/10/19 10:00 11/11/19 09:27 Plavix - PO 75 mg DAILY [facility] Administration Insulin Aspart 1 vial 11/09/19 22:00 11/11/19 17:37 Novolog Vial Sliding Scale - SQ 8 unit ACHS [facility] Administration Protocol Lisinopril 40 mg 11/10/19 10:00 11/11/19 09:29 Prinivil PO 40 mg DAILY KIMBER[facility] Administration Home Medications Medication Instructions Recorded Amlodipine Besylate 1.5 tab PO DAILY 07/21/19 Atorvastatin Ca [Lipitor] 40 mg PO HS 07/21/19 Glipizide [Glipizide ER] 10 mg PO DAILY 07/21/19 Lisinopril [Zestril] 40 mg PO DAILY 07/21/19 Metformin HCl [Glucophage] 1,000 mg PO BID 07/21/19 Latanoprost 0.005% Eye Drops 1 drop OU HS 11/11/19 [Xalatan 0.005% Eye Drops -] Multivitamin [Multiple Vitamins] 1 tab PO DAILY 11/11/19 ASSESSMENT AND PLAN: 69 year old male with history of CVA (residual L side weakness), DM 2, HTN, HLD who presents with right leg weakness and tender ulceration R 5th toe after Podiatry cut his nails. 1. PAD with RLE small non-healing wound 5th toe US RLE - marked atherosclerotic disease distal superficial femoral to posterior tibial arteries. Evaluated by vascular Sx - for CT Angio. Continue Aspirin/Plavix, Statin. 2. Increasing LE weakness, possible acute on chronic CVA CT Head - no acute findings, chronic ischemic changes MRI Brain - extensive chronic ischemic changes in white matter of both hemispheres with dilation of ventricles Evaluated by Neurology - to continue Aspirin/Plavix/Statin. 3. DM 2 - Glipizide, Metformin held. Maintain on Novolog sliding scale. 4. HTN - continue Norvasc, Lisinopril. Echo showing grade I diastolic dysfunction, 65-70% EF, with mild concentric LVH. 5. HLD - continue Lipitor. DVT Px - Heparin SQ
[2019-11-12 00:59] VITALS: BMI 19.5
[2019-11-12] MEDS: INSULIN SLIDING SCALE (NOVOLOG) 1 VIAL SQ SCH ×4 (06:33→21:34)
[2019-11-12 07:33] LABS: BASO % 0.6 % (0-2.0); HEMATOCRIT 36.3 % (35.4-49); HEMOGLOBIN 11.9 GM/dL (11.7-16.9); LYMPH % 35.7 % (8-40); MCH 28.4 pg (25.7-33.7); MCHC 32.7 g/dl (32.0-35.9); MEAN CELL VOLUME 86.8 fl (80-96); MEAN PLT VOLUME 8.1 fl (7.5-11.1); MONO % 8.5 % (3.8-10.2); NEUT % 52.2 % (42.8-82.8); PLATELET COUNT 281 K/MM3 (134-434); RBC 4.18 M/mm3 (4.00-5.60); RDW 13.3 % (11.9-15.9)
[2019-11-12 07:56] LABS: BILIRUBIN,TOTAL 0.3 mg/dL (0.2-1); BLOOD UREA NITROGEN 11.5 mg/dL (7-18); CALCIUM 8.7 mg/dL (8.5-10.1); CREATININE 0.7 mg/dL (0.55-1.3); POTASSIUM 3.6 mmol/L (3.5-5.1); TOT PROT 6.9 g/dl (6.4-8.2)
[2019-11-12] MEDS: LISINOPRIL 20 MG TABLET (FP) PO SCH (10:39)
[2019-11-12] MEDS: ASPIRIN 325 MG TABLET PO SCH (10:39)
[2019-11-12] MEDS: amLODIPine BESYLATE 5 MG TABLET (FP) PO SCH (10:39)
[2019-11-12] MEDS: CLOPIDOGREL BISULFATE 75 MG TABLET (FP) PO SCH (10:39)
--- NOTE | 2019-11-12 10:49 | PN ---
Progress Note (short form) - Note Progress Note: Pt states that he feels burning in his foot today. Vital Signs Period Temp Pulse Resp BP Sys/Dennis Pulse Ox Last 24 Hr 97.3 F-98.2 F 82-97 14-18 148-159/68-92 97-98 GEN: A&0x3, NAD Right foot: 5th toe with small eschar under the nail, no drainage, no erythema. tender to touch. foot warm to touch today CTA completed-awaiting offical results A/: 69 yo male with nonpalpable Right foot pulses, small 5 toe ulcer x 3 weeks Ordered local wound care with bacitracin Awaiting official CTA results/Dr. Phillips to review the study. If no surgical intervention needed, pt may follow-up in the wound clinic D/w Dr. Phillips
[2019-11-12] MEDS ORDERED: traMADol HCL 50 MG TABLET PO PRN (11:45)
[2019-11-12] MEDS ORDERED: ACETAMINOPHEN 325 MG TABLET (FP) PO PRN (13:12)
--- NOTE | 2019-11-12 13:41 | PN ---
Teaching Attending Note Name of Resident: Kalen Anna ATTENDING PHYSICIAN STATEMENT I saw and evaluated the patient. I reviewed the resident's note and discussed the case with the resident. I agree with the resident's findings and plan as documented. SUBJECTIVE: Feels well. Complains of tenderness 5th toe R foot and burning RLE. OBJECTIVE: Afebrile, Hemodynamically Stable. Last Vital Signs Temp Pulse Resp BP Pulse Ox 98.7 F 108 H 16 171/105 H 98 11/12/19 10:51 11/12/19 10:51 11/12/19 10:51 11/12/19 10:51 11/12/19 09:00 Heart - S1, S2, RRR Lungs - clear to auscultation Abdomen - soft non-tender. Bowel Sounds normal. Extremities - No edema, small abrasion/wound tip of R 5th toe with tenderness. No surrounding tenderness/erythema/swelling. RLE weaker pulses, cool compared to L. Neuro - AAO x 3. Decreased Power LEs - RLE 4/5, LLE 3-4/5. Laboratory Results - last 24 hr 11/10/19 11/11/19 11/11/19 09:00 17:36 21:52 WBC RBC Hgb Hct MCV MCH MCHC RDW Plt Count MPV Absolute Neuts (auto) Neutrophils % Lymphocytes % Monocytes % Eosinophils % Basophils % Nucleated RBC % Sodium Potassium Chloride Carbon Dioxide Anion Gap BUN Creatinine Est GFR (CKD-EPI)AfAm Est GFR (CKD-EPI)NonAf POC Glucometer 337 72 Random Glucose Calcium Total Bilirubin AST ALT Alkaline Phosphatase Total Protein Albumin Free T3 2.6 11/12/19 11/12/19 11/12/19 06:32 07:08 07:08 WBC 6.0 RBC 4.18 Hgb 11.9 Hct 36.3 MCV 86.8 MCH 28.4 MCHC 32.7 RDW 13.3 Plt Count 281 MPV 8.1 Absolute Neuts (auto) 3.1 Neutrophils % 52.2 Lymphocytes % 35.7 D Monocytes % 8.5 Eosinophils % 3.0 Basophils % 0.6 Nucleated RBC % 0 Sodium 138 Potassium 3.6 Chloride 102 Carbon Dioxide 30 Anion Gap 6 L BUN 11.5 Creatinine 0.7 Est GFR (CKD-EPI)AfAm 112.38 Est GFR (CKD-EPI)NonAf 96.97 POC Glucometer 180 Random Glucose 195 H Calcium 8.7 Total Bilirubin 0.3 AST 15 ALT 17 Alkaline Phosphatase 80 Total Protein 6.9 Albumin 3.0 L Free T3 11/12/19 12:24 WBC RBC Hgb Hct MCV MCH MCHC RDW Plt Count MPV Absolute Neuts (auto) Neutrophils % Lymphocytes % Monocytes % Eosinophils % Basophils % Nucleated RBC % Sodium Potassium Chloride Carbon Dioxide Anion Gap BUN Creatinine Est GFR (CKD-EPI)AfAm Est GFR (CKD-EPI)NonAf POC Glucometer 346 Random Glucose Calcium Total Bilirubin AST ALT Alkaline Phosphatase Total Protein Albumin Free T3 Current Medications Generic Name Dose Route Start Last Admin Trade Name Freq PRN Reason Stop Dose Admin Acetaminophen 650 mg 11/12/19 13:12 Tylenol - PO Q6H PRN PAIN LEVEL 1 - 3 Amlodipine Besylate 7.5 mg 11/10/19 10:00 11/12/19 10:39 Norvasc - PO 7.5 mg DAILY KIMBERLY Administration Aspirin 325 mg 11/10/19 10:00 11/12/19 10:39 Asa - PO 325 mg DAILY K[facility]BERLY Administration Atorvastatin Calcium 40 mg 11/09/19 22:00 11/11/19 22:19 Lipitor - PO 40 mg HS [facility] Administration Bacitracin 1 applic 11/13/19 10:00 Bacitracin - TP DAILY [facility] Clopidogrel Bisulfate 75 mg 11/10/19 10:00 11/12/19 10:39 Plavix - PO 75 mg DAILY [facility] Administration Heparin Sodium (Porcine) 5,000 unit 11/12/19 14:00 Heparin - SQ TID KIMBERLY Insulin Aspart 1 vial 11/09/19 22:00 11/12/19 12:26 Novolog Vial Sliding Scale - SQ 8 unit ACHS [facility] Administration Protocol Lisinopril 40 mg 11/10/19 10:00 11/12/19 10:39 Prinivil PO 40 mg DAILY [facility]BER[facility] Administration Tramadol HCl 50 mg 11/12/19 11:45 Ultram - PO Q4H PRN PAIN LEVEL 6-10 Home Medications Medication Instructions Recorded Amlodipine Besylate 1.5 tab PO DAILY 07/21/19 Atorvastatin Ca [Lipitor] 40 mg PO HS 07/21/19 Glipizide [Glipizide ER] 10 mg PO DAILY 07/21/19 Lisinopril [Zestril] 40 mg PO DAILY 07/21/19 Metformin HCl [Glucophage] 1,000 mg PO BID 07/21/19 Latanoprost 0.005% Eye Drops 1 drop OU HS 11/11/19 [Xalatan 0.005% Eye Drops -] Multivitamin [Multiple Vitamins] 1 tab PO DAILY 11/11/19 ASSESSMENT AND PLAN: 69 year old male with history of CVA (residual L side weakness), DM 2, HTN, HLD who presents with right leg weakness and tender ulceration R 5th toe after Podiatry cut his nails. 1. PAD with RLE small non-healing wound 5th toe US RLE - marked atherosclerotic disease distal superficial femoral to posterior tibial arteries. Awaiting CT Angiogram report and eval by Vascular Surgery. Continue Aspirin/Plavix, Statin. tramadol PRN for pain 2. Increasing LE weakness, possible acute on chronic CVA CT Head - no acute findings, chronic ischemic changes MRI Brain - extensive chronic ischemic changes in white matter of both hemispheres with dilation of ventricles Evaluated by Neurology - to continue Aspirin/Plavix/Statin. 3. DM 2 - Glipizide, Metformin held. Maintain on Novolog sliding scale. 4. HTN, uncontrolled - on Norvasc, Lisinopril. Will increase Norvasc to 10mg. Echo showing grade I diastolic dysfunction, 65-70% EF, with mild concentric LVH. 5. HLD - continue Lipitor. DVT Px - Heparin SQ
[2019-11-12] MEDS ORDERED: amLODIPine BESYLATE 2.5 MG TABLET (FP) PO ONE (13:45)
--- NOTE | 2019-11-12 13:59 | PN ---
Physical Exam: SUBJECTIVE: Patient seen and examined today. Pt c/o Rt big toe burning pain. OBJECTIVE: Vital Signs Period Temp Pulse Resp BP Sys/Dennis Pulse Ox Last 24 Hr 97.4 F-98.7 F 82-108 14-18 148-171/74-105 97-98 GENERAL: The patient is awake, alert, and fully oriented, in no acute distress. LUNGS: Breath sounds equal, clear to auscultation bilaterally, no wheezes, no crackles, no accessory muscle use. HEART: Regular rate and rhythm, S1, S2 without murmur, rub or gallop. ABDOMEN: Soft, nontender, nondistended EXTREMITIES: 2+ pulses, warm, well-perfused, no edema. NEUROLOGICAL: small abrasion of R 5th toe with burning tenderness. No surrounding tenderness/erythema/swelling. RLE weaker pulses, warmer than yesterday but still cool. Decreased strength in LE's - RLE 4/5, LLE 3/5. Laboratory Results - last 24 hr 11/10/19 11/11/19 11/11/19 09:00 17:36 21:52 WBC RBC Hgb Hct MCV MCH MCHC RDW Plt Count MPV Absolute Neuts (auto) Neutrophils % Lymphocytes % Monocytes % Eosinophils % Basophils % Nucleated RBC % Sodium Potassium Chloride Carbon Dioxide Anion Gap BUN Creatinine Est GFR (CKD-EPI)AfAm Est GFR (CKD-EPI)NonAf POC Glucometer 337 72 Random Glucose Calcium Total Bilirubin AST ALT Alkaline Phosphatase Total Protein Albumin Free T3 2.6 11/12/19 11/12/19 11/12/19 06:32 07:08 07:08 WBC 6.0 RBC 4.18 Hgb 11.9 Hct 36.3 MCV 86.8 MCH 28.4 MCHC 32.7 RDW 13.3 Plt Count 281 MPV 8.1 Absolute Neuts (auto) 3.1 Neutrophils % 52.2 Lymphocytes % 35.7 D Monocytes % 8.5 Eosinophils % 3.0 Basophils % 0.6 Nucleated RBC % 0 Sodium 138 Potassium 3.6 Chloride 102 Carbon Dioxide 30 Anion Gap 6 L BUN 11.5 Creatinine 0.7 Est GFR (CKD-EPI)AfAm 112.38 Est GFR (CKD-EPI)NonAf 96.97 POC Glucometer 180 Random Glucose 195 H Calcium 8.7 Total Bilirubin 0.3 AST 15 ALT 17 Alkaline Phosphatase 80 Total Protein 6.9 Albumin 3.0 L Free T3 11/12/19 12:24 WBC RBC Hgb Hct MCV MCH MCHC RDW Plt Count MPV Absolute Neuts (auto) Neutrophils % Lymphocytes % Monocytes % Eosinophils % Basophils % Nucleated RBC % Sodium Potassium Chloride Carbon Dioxide Anion Gap BUN Creatinine Est GFR (CKD-EPI)AfAm Est GFR (CKD-EPI)NonAf POC Glucometer 346 Random Glucose Calcium Total Bilirubin AST ALT Alkaline Phosphatase Total Protein Albumin Free T3 Active Medications Generic Name Dose Route Start Last Admin Trade Name Freq PRN Reason Stop Dose Admin Acetaminophen 650 mg 11/12/19 13:12 Tylenol - PO Q6H PRN PAIN LEVEL 1 - 3 Amlodipine Besylate 10 mg 11/12/19 13:45 Norvasc - PO DAILY KIMBERLY Aspirin 325 mg 11/10/19 10:00 11/12/19 10:39 Asa - PO 325 mg DAILY [facility] Administration Atorvastatin Calcium 40 mg 11/09/19 22:00 11/11/19 22:19 Lipitor - PO 40 mg HS [facility]BER[facility] Administration Bacitracin 1 applic 11/13/19 10:00 Bacitracin - TP DAILY [facility] Clopidogrel Bisulfate 75 mg 11/10/19 10:00 11/12/19 10:39 Plavix - PO 75 mg DAILY [facility] Administration Heparin Sodium (Porcine) 5,000 unit 11/12/19 14:00 Heparin - SQ TID KIMBER[facility] Insulin Aspart 1 vial 11/09/19 22:00 11/12/19 12:26 Novolog Vial Sliding Scale - SQ 8 unit ACHS KIMBER[facility] Administration Protocol Lisinopril 40 mg 11/10/19 10:00 11/12/19 10:39 Prinivil PO 40 mg DAILY [facility]IMBER[facility] Administration Tramadol HCl 50 mg 11/12/19 11:45 Ultram - PO Q4H PRN PAIN LEVEL 6-10 - MRI negative for acute infarction showing extensive chronic ischemic changes in white matter of both hemispheres with dilation of ventricles, Dr. Hair suggests c/w asa, plavix and f/u as o/p. - carotid doppler atherosclerotic but no hemodynamically stenosis - Echo showing grade I diastolic dysfunction, 65-70% EF, with mild concentric LVH. ASSESSMENT/PLAN: Josesito Molina is a 69 year old male with PMHx of CVA( 3 years ago, residual L side weakness), NIDDM, HTN, and HLD who presents with right leg weakness for the past week. Pt is admitted to [facility] for CVA workup #PAD with Rt toe ulcer/RLE stenosis - c/ot 5th toe pain as cause of fall but denies weakness on end of the day questioning. - Rt foot xray r/o fracture, tiny calcaneal spur. - no signs of infn - no signs of osteo - duplex sono of RLE showing extensive atherosclerotic plaque present - wound care (Dr. Phillips) - awaiting CTA report of RLE before intervention - bacitracin for local wound care - will have Podiatry (Genevieve) come evaluate pt's toe before potential d/c #Rt lower extremity weakness ? if acute on chronic CVA - CVA ruled out - asa 325 mg, 75 mg plavix continue - continue tight glycemic and BP control - fall precaution - PT eval recommended #HTN - stable -continue lisinopril 40, norvasc 7.5 DM - ISS, BGM -hold metformin, glipizide HLD -continue lipitor 40 F/E/N -monitor lytes - diabetic /sodium controlled diet DVTppx: SCD's on dual anticoagulant/anti-platelet therapy. Visit type - Emergency Visit Emergency Visit: Yes ED Registration Date: 11/09/19 Care time: The patient presented to the Emergency Department on the above date and was hospitalized for further evaluation of their emergent condition. - New Patient This patient is new to me today: No - Critical Care Critical Care patient: No - Discharge Referral Referred to [facility] Med P.C.: No ATTENDING PHYSICIAN STATEMENT I saw and evaluated the patient. I reviewed the resident's note and discussed the case with the resident. I agree with the resident's findings and plan as documented. SUBJECTIVE: OBJECTIVE: ASSESSMENT AND PLAN:
[2019-11-12] MEDS: HEPARIN NA (PORCINE) 5,000 UNITS/ML 1ML VIAL SQ SCH ×2 (14:22→21:34)
--- NOTE | 2019-11-12 14:40 | PN ---
Progress Note (short form) - Note Progress Note: Vascular Surgery Pt seen and examined. CAme in for fall at home. Three weeks ago had foot care done by podiatry and the right fifth toe nail was cut to far. No open ulcers at this point, just tenderness in the area. CTA done - not officially read. On review, looks like pt has SFA stenosis on CTA. Pt does not have any openings on right fifth toe right now. Can watch pt as outpt. If toe status changes, pt will need angiogram for sfa stenosis. Please send pt to vascular clinic in one week, and we can monitor the toe. Awaiting CTA official results. Danielito Phillips DO
[2019-11-12] MEDS: ATORVASTATIN CA 40 MG TABLET (FP) PO SCH (21:34)
[2019-11-13] MEDS: INSULIN SLIDING SCALE (NOVOLOG) 1 VIAL SQ SCH ×4 (06:12→22:11)
[2019-11-13] MEDS: HEPARIN NA (PORCINE) 5,000 UNITS/ML 1ML VIAL SQ SCH ×3 (06:12→22:11)
[2019-11-13 07:47] LABS: BASO % 0.5 % (0-2.0); EOS % 2.8 % (0-4.5); HEMATOCRIT 35.1 % (35.4-49); HEMOGLOBIN 11.4 GM/dL (11.7-16.9); LYMPH % 41.9 % (8-40); MCH 28.4 pg (25.7-33.7); MCHC 32.6 g/dl (32.0-35.9); MEAN CELL VOLUME 87.3 fl (80-96); MEAN PLT VOLUME 8.7 fl (7.5-11.1); MONO % 7.6 % (3.8-10.2); NEUT % 47.2 % (42.8-82.8); PLATELET COUNT 264 K/MM3 (134-434); RBC 4.03 M/mm3 (4.00-5.60); RDW 13.5 % (11.9-15.9); WHITE BLOOD COUNT 5.6 K/mm3 (4.0-10.0)
[2019-11-13 08:00] LABS: BILIRUBIN,TOTAL 0.3 mg/dL (0.2-1); CALCIUM 8.9 mg/dL (8.5-10.1); CREATININE 0.7 mg/dL (0.55-1.3); POTASSIUM 3.9 mmol/L (3.5-5.1); TOT PROT 6.7 g/dl (6.4-8.2)
[2019-11-13] MEDS: ASPIRIN 325 MG TABLET PO SCH (09:34)
[2019-11-13] MEDS: CLOPIDOGREL BISULFATE 75 MG TABLET (FP) PO SCH (09:35)
[2019-11-13] MEDS: LISINOPRIL 20 MG TABLET (FP) PO SCH (09:35)
[2019-11-13] MEDS: amLODIPine BESYLATE 10 MG TABLET (FP) PO SCH (09:35)
[2019-11-13] MEDS: BACITRACIN 15 GM TUBE TOPICAL OINTMENT TP SCH (09:36)
--- NOTE | 2019-11-13 10:08 | SPA.PREOP ---
- PRE-OP NOTE Dx: Right leg arterial insufficiency Planned Procedure: Right angiogram Surgeon: Danielito Phillips, DO Last Vital Signs Temp Pulse Resp BP Pulse Ox 97.9 F 88 18 141/88 98 11/13/19 08:08 11/13/19 08:08 11/13/19 08:08 11/13/19 08:08 11/12/19 21:00 Lab Results WBC 5.6 K/mm3 (4.0-10.0) 11/13/19 06:39 RBC 4.03 M/mm3 (4.00-5.60) 11/13/19 06:39 Hgb 11.4 GM/dL (11.7-16.9) L 11/13/19 06:39 Hct 35.1 % (35.4-49) L 11/13/19 06:39 MCV 87.3 fl (80-96) 11/13/19 06:39 MCHC 32.6 g/dl (32.0-35.9) 11/13/19 06:39 RDW 13.5 % (11.9-15.9) 11/13/19 06:39 Plt Count 264 K/MM3 (134-434) 11/13/19 06:39 Sodium 139 mmol/L (136-145) 11/13/19 06:39 Potassium 3.9 mmol/L (3.5-5.1) 11/13/19 06:39 Chloride 103 mmol/L (98-107) 11/13/19 06:39 Carbon Dioxide 30 mmol/L (21-32) 11/13/19 06:39 Anion Gap 6 MMOL/L (8-16) L 11/13/19 06:39 BUN 14.0 mg/dL (7-18) 11/13/19 06:39 Creatinine 0.7 mg/dL (0.55-1.3) 11/13/19 06:39 Random Glucose 131 mg/dL (74-106) H 11/13/19 06:39 Calcium 8.9 mg/dL (8.5-10.1) 11/13/19 06:39 - ASSESSMENT/PLAN 1. Make NPO after midnight except po meds 2. GI/DVT PPX 3. Medical optimization / clearance 4. Consent to be obtained by surgeon after risks, benefits and alternatives discussed with patient and or Health Care Proxy.
--- NOTE | 2019-11-13 11:07 | PN ---
Teaching Attending Note Name of Resident: Kalen Anna ATTENDING PHYSICIAN STATEMENT I saw and evaluated the patient. I reviewed the resident's note and discussed the case with the resident. I agree with the resident's findings and plan as documented. SUBJECTIVE: Feels well. Complains of tenderness 5th toe R foot and burning R toes. OBJECTIVE: Afebrile, Hemodynamically Stable. Last Vital Signs Temp Pulse Resp BP Pulse Ox 97.9 F 88 18 141/88 98 11/13/19 08:08 11/13/19 08:08 11/13/19 08:08 11/13/19 08:08 11/12/19 21:00 Heart - S1, S2, RRR Lungs - clear to auscultation Abdomen - soft non-tender. Bowel Sounds normal. Extremities - No edema, small abrasion/wound tip of R 5th toe with tenderness. No surrounding tenderness/erythema/swelling. RLE weaker pulses, cool compared to L. Neuro - AAO x 3. Decreased Power LEs - RLE 4-5/5, LLE 3-4/5. Laboratory Results - last 24 hr 11/12/19 11/12/19 11/12/19 12:24 16:35 21:31 WBC RBC Hgb Hct MCV MCH MCHC RDW Plt Count MPV Absolute Neuts (auto) Neutrophils % Lymphocytes % Monocytes % Eosinophils % Basophils % Nucleated RBC % Sodium Potassium Chloride Carbon Dioxide Anion Gap BUN Creatinine Est GFR (CKD-EPI)AfAm Est GFR (CKD-EPI)NonAf POC Glucometer 346 335 332 Random Glucose Calcium Total Bilirubin AST ALT Alkaline Phosphatase Total Protein Albumin 11/13/19 11/13/19 11/13/19 06:10 06:39 06:39 WBC 5.6 RBC 4.03 Hgb 11.4 L Hct 35.1 L MCV 87.3 MCH 28.4 MCHC 32.6 RDW 13.5 Plt Count 264 MPV 8.7 Absolute Neuts (auto) 2.7 Neutrophils % 47.2 Lymphocytes % 41.9 H Monocytes % 7.6 Eosinophils % 2.8 Basophils % 0.5 Nucleated RBC % 0 Sodium 139 Potassium 3.9 Chloride 103 Carbon Dioxide 30 Anion Gap 6 L BUN 14.0 Creatinine 0.7 Est GFR (CKD-EPI)AfAm 112.38 Est GFR (CKD-EPI)NonAf 96.97 POC Glucometer 154 Random Glucose 131 H Calcium 8.9 Total Bilirubin 0.3 AST 42 H ALT 45 Alkaline Phosphatase 89 Total Protein 6.7 Albumin 3.0 L Current Medications Generic Name Dose Route Start Last Admin Trade Name Timiq PRN Reason Stop Dose Admin Acetaminophen 650 mg 11/12/19 13:12 Tylenol - PO Q6H PRN PAIN LEVEL 1 - 3 Amlodipine Besylate 10 mg 11/12/19 13:45 11/13/19 09:35 Norvasc - PO 10 mg DAILY [facility] Administration Aspirin 325 mg 11/10/19 10:00 11/13/19 09:34 Asa - PO 325 mg DAILY [facility] Administration Atorvastatin Calcium 40 mg 11/09/19 22:00 11/12/19 21:34 Lipitor - PO 40 mg HS [facility] Administration Bacitracin 1 applic 11/13/19 10:00 11/13/19 09:36 Bacitracin - TP 1 applic DAILY [facility] Administration Clopidogrel Bisulfate 75 mg 11/10/19 10:00 11/13/19 09:35 Plavix - PO 75 mg DAILY [facility] Administration Heparin Sodium (Porcine) 5,000 unit 11/12/19 14:00 11/13/19 06:12 Heparin - SQ 5,000 unit TID [facility] Administration Insulin Aspart 1 vial 11/09/19 22:00 11/13/19 06:12 Novolog Vial Sliding Scale - SQ 2 unit ACHS [facility] Administration Protocol Lisinopril 40 mg 11/10/19 10:00 11/13/19 09:35 Prinivil PO 40 mg DAILY [facility] Administration Tramadol HCl 50 mg 11/12/19 11:45 11/13/19 09:35 Ultram - PO 50 mg Q4H PRN Administration PAIN LEVEL 6-10 Home Medications Medication Instructions Recorded Amlodipine Besylate 1.5 tab PO DAILY 07/21/19 Atorvastatin Ca [Lipitor] 40 mg PO HS 07/21/19 Glipizide [Glipizide ER] 10 mg PO DAILY 07/21/19 Lisinopril [Zestril] 40 mg PO DAILY 07/21/19 Metformin HCl [Glucophage] 1,000 mg PO BID 07/21/19 Latanoprost 0.005% Eye Drops 1 drop OU HS 11/11/19 [Xalatan 0.005% Eye Drops -] Multivitamin [Multiple Vitamins] 1 tab PO DAILY 11/11/19 ASSESSMENT AND PLAN: 69 year old male with history of CVA (residual L side weakness), DM 2, HTN, HLD who presents with right leg weakness and tender ulceration R 5th toe after Podiatry cut his nails. 1. PAD with RLE small wound/scs tip of 5th toe US RLE - marked atherosclerotic disease distal superficial femoral to posterior tibial arteries. CT Angiogram (prelim report awaiting official report since 11/11) - Extensive PAD , occlusion mid SFA, multifocal stenosis involving SFA and trifurcation vessels and Evaluated by Vascular Surgery - for Angiogram +/- PCI tomorrow. NPO MN. Continue Aspirin/Plavix, Statin. Podiatry eval requested on recommendation of Vascular Sx. 2. Increasing LE weakness, chronic CVA on CT CT Head - no acute findings, chronic ischemic changes MRI Brain - extensive chronic ischemic changes in white matter of both hemispheres with dilation of ventricles Evaluated by Neurology - to continue Aspirin/Plavix/Statin. 3. DM 2 - Glipizide, Metformin held. Maintain on Novolog sliding scale. 4. HTN - on Norvasc, Lisinopril. Norvasc increased to 10mg. Echo showing grade I diastolic dysfunction, 65-70% EF, with mild concentric LVH. Monitor BP. 5. HLD - continue Lipitor. 6. Non-specific lucency R iliac bone reported on prelim CT report - awaiting official read - if confirmed, for out-patient follow up once acute PAD issue is attended to. DVT Px - Heparin SQ
--- NOTE | 2019-11-13 12:55 | PN ---
Physical Exam: SUBJECTIVE: Patient seen and examined at bedside. Pt's rt foot pulse palpable but below its cool to touch compared to left side. Dr. Phillips to do RLE angio tomorrow. CTA report pending. OBJECTIVE: Vital Signs Period Temp Pulse Resp BP Sys/Dennis Pulse Ox Last 24 Hr 97.8 F-98.4 F 87-114 16-18 141-156/74-95 98-98 GENERAL: The patient is awake, alert, and fully oriented, in no acute distress. HEAD: Normal with no signs of trauma. NECK: supple. LUNGS: Breath sounds equal, clear to auscultation bilaterally, no wheezes, no crackles, no accessory muscle use. HEART: Regular rate and rhythm, S1, S2 without murmur, rub or gallop. ABDOMEN: Soft, nontender, nondistended, normoactive bowel sounds, no guarding, no rebound, no hepatosplenomegaly, no masses. EXTREMITIES: 2+ pulses, warm, well-perfused, no edema. NEUROLOGICAL: Cranial nerves II through XII grossly intact. RLE unable to fully bend flat (chronic) Laboratory Results - last 24 hr 11/12/19 11/12/19 11/13/19 16:35 21:31 06:10 WBC RBC Hgb Hct MCV MCH MCHC RDW Plt Count MPV Absolute Neuts (auto) Neutrophils % Lymphocytes % Monocytes % Eosinophils % Basophils % Nucleated RBC % Sodium Potassium Chloride Carbon Dioxide Anion Gap BUN Creatinine Est GFR (CKD-EPI)AfAm Est GFR (CKD-EPI)NonAf POC Glucometer 335 332 154 Random Glucose Calcium Total Bilirubin AST ALT Alkaline Phosphatase Total Protein Albumin 11/13/19 11/13/19 11/13/19 06:39 06:39 11:02 WBC 5.6 RBC 4.03 Hgb 11.4 L Hct 35.1 L MCV 87.3 MCH 28.4 MCHC 32.6 RDW 13.5 Plt Count 264 MPV 8.7 Absolute Neuts (auto) 2.7 Neutrophils % 47.2 Lymphocytes % 41.9 H Monocytes % 7.6 Eosinophils % 2.8 Basophils % 0.5 Nucleated RBC % 0 Sodium 139 Potassium 3.9 Chloride 103 Carbon Dioxide 30 Anion Gap 6 L BUN 14.0 Creatinine 0.7 Est GFR (CKD-EPI)AfAm 112.38 Est GFR (CKD-EPI)NonAf 96.97 POC Glucometer 256 Random Glucose 131 H Calcium 8.9 Total Bilirubin 0.3 AST 42 H ALT 45 Alkaline Phosphatase 89 Total Protein 6.7 Albumin 3.0 L Active Medications Generic Name Dose Route Start Last Admin Trade Name Freq PRN Reason Stop Dose Admin Acetaminophen 650 mg 11/12/19 13:12 Tylenol - PO Q6H PRN PAIN LEVEL 1 - 3 Amlodipine Besylate 10 mg 11/12/19 13:45 11/13/19 09:35 Norvasc - PO 10 mg DAILY KIMBERLY Administration Aspirin 325 mg 11/10/19 10:00 11/13/19 09:34 Asa - PO 325 mg DAILY KIMBERLY Administration Atorvastatin Calcium 40 mg 11/09/19 22:00 11/12/19 21:34 Lipitor - PO 40 mg HS KIMBERLY Administration Bacitracin 1 applic 11/13/19 10:00 11/13/19 09:36 Bacitracin - TP 1 applic DAILY KIMBERLY Administration Clopidogrel Bisulfate 75 mg 11/10/19 10:00 11/13/19 09:35 Plavix - PO 75 mg DAILY KIMBERLY Administration Heparin Sodium (Porcine) 5,000 unit 11/12/19 14:00 11/13/19 06:12 Heparin - SQ 5,000 unit TID KIMBERLY Administration Insulin Aspart 1 vial 11/09/19 22:00 11/13/19 11:04 Novolog Vial Sliding Scale - SQ 6 unit ACHS KIMBERLY Administration Protocol Lisinopril 40 mg 11/10/19 10:00 11/13/19 09:35 Prinivil PO 40 mg DAILY KIMBERLY Administration Tramadol HCl 50 mg 11/12/19 11:45 11/13/19 09:35 Ultram - PO 50 mg Q4H PRN Administration PAIN LEVEL 6-10 ASSESSMENT/PLAN: - MRI negative for acute infarction showing extensive chronic ischemic changes in white matter of both hemispheres with dilation of ventricles, Dr. Hair suggests c/w asa, plavix and f/u as o/p. - carotid doppler atherosclerotic but no hemodynamically stenosis - Echo showing grade I diastolic dysfunction, 65-70% EF, with mild concentric LVH. ASSESSMENT/PLAN: Josesito Molina is a 69 year old male with PMHx of CVA( 3 years ago, residual L side weakness), NIDDM, HTN, and HLD who presents with right leg weakness for the past week. Pt is admitted to tele for CVA workup #PAD with Rt toe ulcer/RLE stenosis - c/ot 5th toe pain as cause of fall but denies weakness on end of the day questioning. - Rt foot xray r/o fracture, tiny calcaneal spur. - no signs of infn - no signs of osteo - duplex sono of RLE showing extensive atherosclerotic plaque present - wound care (Dr. Phillips) - awaiting CTA report of RLE but angio scheduled for tomorrow. - npo after midnight, heparin is fine before procedure. - bacitracin for local wound care - Podiatry (Genevieve) will wait until after angio report to determine his intervention. He will continue to follow patient. - will touch base with surgery regarding if asa and plavix is ok prior to surgery #Rt lower extremity weakness ? if acute on chronic CVA - CVA ruled out - asa 325 mg, 75 mg plavix continue - continue tight glycemic and BP control - fall precaution - PT eval recommended #HTN - stable -continue lisinopril 40, norvasc 7.5 DM - ISS, BGM -hold metformin, glipizide HLD -continue lipitor 40 F/E/N -monitor lytes - diabetic /sodium controlled diet DVTppx: SCD's on dual anticoagulant/anti-platelet therapy. Visit type - Emergency Visit Emergency Visit: Yes ED Registration Date: 11/09/19 Care time: The patient presented to the Emergency Department on the above date and was hospitalized for further evaluation of their emergent condition. - New Patient This patient is new to me today: No - Critical Care Critical Care patient: No - Discharge Referral Referred to [facility] No ATTENDING PHYSICIAN STATEMENT I saw and evaluated the patient. I reviewed the resident's note and discussed the case with the resident. I agree with the resident's findings and plan as documented. SUBJECTIVE: OBJECTIVE: ASSESSMENT AND PLAN:
--- NOTE | 2019-11-13 13:07 | CONSULT ---
Consult Consult Specialty:: Podiatry Reason for Consultation:: Wound 5th toe PVD - History of Present Illness Chief Complaint: Pain right foot. History of Present Illness: Severe 5th toe right. - Alcohol/Substance Use Hx Alcohol Use: No - Smoking History Smoking history: Former smoker Have you smoked in the past 12 months: No If you are a former smoker, when did you quit?: 1990 Home Medications - Allergies Allergies/Adverse Reactions: Allergies Allergy/AdvReac Type Severity Reaction Status Date / Time No Known Allergies Allergy Verified 07/18/19 23:00 - Home Medications Home Medications: Ambulatory Orders Amlodipine Besylate 1.5 tab PO DAILY 07/21/19 Atorvastatin Ca [Lipitor] 40 mg PO HS 07/21/19 Glipizide [Glipizide ER] 10 mg PO DAILY 07/21/19 Lisinopril [Zestril] 40 mg PO DAILY 07/21/19 Metformin HCl [Glucophage] 1,000 mg PO BID 07/21/19 Latanoprost 0.005% Eye Drops [Xalatan 0.005% Eye Drops -] 1 drop OU HS 11/11/19 Multivitamin [Multiple Vitamins] 1 tab PO DAILY 11/11/19 Aspirin [ASA -] 325 mg PO DAILY #30 tablet 11/13/19 Clopidogrel Bisulfate [Plavix] 75 mg PO DAILY #30 tablet 11/13/19 Physical Exam Vital Signs: Vital Signs Temperature 97.9 F 11/13/19 08:08 Pulse Rate 88 11/13/19 08:08 Respiratory Rate 18 11/13/19 08:08 Blood Pressure 141/88 11/13/19 08:08 O2 Sat by Pulse Oximetry (%) 98 11/13/19 09:00 Extremities: Yes: Other (cold right foot compared to left, +grade 1 wound tip 5th toe right, multiple occlusions on CTA report right) Labs: CBC, BMP 11/13/19 06:39 11/13/19 06:39 Imaging - Results Cat Scan: Report Reviewed Assessment/Plan Increasd temperature gradient right foot Grade 1 wound right foot 5th toe. Atrophic skin right foot Discoloration skin right foot Will follow right foot. Awaiting vascular recommendations.
[2019-11-13] MEDS: ATORVASTATIN CA 40 MG TABLET (FP) PO SCH (22:11)
[2019-11-14] MEDS: HEPARIN NA (PORCINE) 5,000 UNITS/ML 1ML VIAL SQ SCH ×3 (06:18→21:25)
[2019-11-14] MEDS: INSULIN SLIDING SCALE (NOVOLOG) 1 VIAL SQ SCH ×4 (06:18→21:25)
[2019-11-14] MEDS: BACITRACIN 15 GM TUBE TOPICAL OINTMENT TP SCH (09:28)
[2019-11-14] MEDS: ASPIRIN 325 MG TABLET PO SCH (09:28)
[2019-11-14] MEDS: LISINOPRIL 20 MG TABLET (FP) PO SCH (09:28)
[2019-11-14] MEDS: amLODIPine BESYLATE 10 MG TABLET (FP) PO SCH (09:28)
[2019-11-14] MEDS: CLOPIDOGREL BISULFATE 75 MG TABLET (FP) PO SCH (09:29)
--- NOTE | 2019-11-14 12:23 | PN ---
Teaching Attending Note Name of Resident: Kalen Anna ATTENDING PHYSICIAN STATEMENT I saw and evaluated the patient. I reviewed the resident's note and discussed the case with the resident. I agree with the resident's findings and plan as documented. SUBJECTIVE: Feels well. Complains of tenderness 5th toe R foot and burning R sided toes. OBJECTIVE: Afebrile, Hemodynamically Stable. Last Vital Signs Temp Pulse Resp BP Pulse Ox 97.9 F 98 H 18 155/84 96 11/14/19 09:32 11/14/19 09:32 11/14/19 09:32 11/14/19 09:32 11/13/19 20:43 Heart - S1, S2, RRR Lungs - clear to auscultation Abdomen - soft non-tender. Bowel Sounds normal. Extremities - No edema, small abrasion/wound tip of R 5th toe with tenderness. No surrounding tenderness/erythema/swelling. RLE - weak pulse, cool compared to L. Neuro - AAO x 3. Decreased Power LEs - RLE 4-5/5, LLE 4/5. Laboratory Results - last 24 hr 11/12/19 11/13/19 11/13/19 07:08 16:41 22:09 POC Glucometer 253 285 Homocysteine 10.8 11/14/19 11/14/19 05:32 11:48 POC Glucometer 150 167 Homocysteine Current Medications Generic Name Dose Route Start Last Admin Trade Name Freq PRN Reason Stop Dose Admin Acetaminophen 650 mg 11/12/19 13:12 Tylenol - PO Q6H PRN PAIN LEVEL 1 - 3 Amlodipine Besylate 10 mg 11/12/19 13:45 11/14/19 09:28 Norvasc - PO 10 mg DAILY KIMBERLY Administration Aspirin 325 mg 11/10/19 10:00 11/14/19 09:28 Asa - PO Not Given DAILY KIMBERLY Atorvastatin Calcium 40 mg 11/09/19 22:00 11/13/19 22:11 Lipitor - PO 40 mg HS KIMBERLY Administration Bacitracin 1 applic 11/13/19 10:00 11/14/19 09:28 Bacitracin - TP 1 applic DAILY KIMBERLY Administration Clopidogrel Bisulfate 75 mg 11/10/19 10:00 11/14/19 09:29 Plavix - PO Not Given DAILY KIMBERLY Heparin Sodium (Porcine) 5,000 unit 11/12/19 14:00 11/14/19 06:18 Heparin - SQ Not Given TID [facility] Insulin Aspart 1 vial 11/09/19 22:00 11/14/19 11:49 Novolog Vial Sliding Scale - SQ Not Given ACHS [facility] Protocol Lisinopril 40 mg 11/10/19 10:00 11/14/19 09:28 Prinivil PO 40 mg DAILY KIMBERLY Administration Tramadol HCl 50 mg 11/12/19 11:45 11/13/19 09:35 Ultram - PO 50 mg Q4H PRN Administration PAIN LEVEL 6-10 Home Medications Medication Instructions Recorded Amlodipine Besylate 1.5 tab PO DAILY 07/21/19 Atorvastatin Ca [Lipitor] 40 mg PO HS 07/21/19 Glipizide [Glipizide ER] 10 mg PO DAILY 07/21/19 Lisinopril [Zestril] 40 mg PO DAILY 07/21/19 Metformin HCl [Glucophage] 1,000 mg PO BID 07/21/19 Latanoprost 0.005% Eye Drops 1 drop OU HS 11/11/19 [Xalatan 0.005% Eye Drops -] Multivitamin [Multiple Vitamins] 1 tab PO DAILY 11/11/19 Aspirin [ASA -] 325 mg PO DAILY #30 tablet 11/13/19 Clopidogrel Bisulfate [Plavix] 75 mg PO DAILY #30 tablet 11/13/19 ASSESSMENT AND PLAN: 69 year old male with history of CVA (residual L side weakness), DM 2, HTN, HLD who presents with right leg weakness and tender ulceration R 5th toe after Podiatry cut his nails. 1. PAD with RLE small wound/scab tip of R 5th toe US RLE - marked atherosclerotic disease distal superficial femoral to posterior tibial arteries. CT Angiogram - occluded R popliteal/TP trunk/peroneal artery/amterior tibial artery; 90% occluded L SFA For Angiogram +/- PCI today. Continue Aspirin/Plavix, Statin. Podiatry following. 2. Increasing LE weakness, chronic CVA on CT CT Head - no acute findings, chronic ischemic changes MRI Brain - extensive chronic ischemic changes in white matter of both hemispheres with dilation of ventricles Evaluated by Neurology - to continue Aspirin/Plavix/Statin. 3. DM 2 - Glipizide, Metformin held. Maintain on Novolog sliding scale. 4. HTN - on Norvasc, Lisinopril. Norvasc increased to 10mg. Echo showing grade I diastolic dysfunction, 65-70% EF, with mild concentric LVH. Monitor BP. 5. HLD - continue Lipitor. 6. Non-specific lucency R iliac bone reported on prelim CT report - need to confirm with radiology. 7. Mild diffuse pancreatic duct dilatation, 2.3 x 1.8cm liver lesion - out- patient non-emergent MRCP recommended. DVT Px - Heparin SQ
[2019-11-14] MEDS ORDERED: HEPARIN NA (PORCINE) 5,000 UNITS/ML 1ML VIAL ONE ×3 (14:18→16:58)
[2019-11-14] MEDS ORDERED: LIDOCAINE HCL 1%, 10 MG/ML (20ML VIAL) ONE ×2 (14:18→16:12)
[2019-11-14] MEDS ORDERED: oxyCODONE HCL 5 MG TABLET PO PRN ×2 (15:54→18:23)
[2019-11-14] MEDS ORDERED: PROMETHAZINE HCL 25 MG/1 ML VIAL IVPUSH PRN ×2 (15:54→18:23)
[2019-11-14] MEDS ORDERED: ONDANSETRON 4 MG/2 ML VIAL IVPUSH PRN ×2 (15:54→18:23)
[2019-11-14] MEDS ORDERED: MIDAZOLAM HCL 2 MG/2 ML SINGLE DOSE VIAL ONE (16:17)
[2019-11-14] MEDS ORDERED: ceFAZolin SODIUM 1 GM VIAL IVPB ONE (16:39)
[2019-11-14] MEDS ORDERED: LIDOCAINE HCL 1%, 10 MG/ML (20ML VIAL) INF ONE (16:40)
[2019-11-14] MEDS ORDERED: METOPROLOL TARTRATE 5 MG/5 ML VIAL ONE (16:46)
[2019-11-14] MEDS ORDERED: PROPOFOL 20 ML ONE (17:12)
--- NOTE | 2019-11-14 17:30 | PN ---
Physical Exam: SUBJECTIVE: Patient seen and examined today. No complaints. OBJECTIVE: Vital Signs Period Temp Pulse Resp BP Sys/Dennis Pulse Ox Last 24 Hr 97.8 F-98.3 F 86-98 18-20 145-161/67-91 96-98 GENERAL: The patient is awake, alert, and fully oriented, in no acute distress. NECK: Trachea midline, full range of motion, supple. LUNGS: Breath sounds equal, clear to auscultation bilaterally, no wheezes, no crackles, no accessory muscle use. HEART: Regular rate and rhythm, S1, S2 without murmur, rub or gallop. ABDOMEN: Soft, nontender, nondistended, normoactive bowel sounds, no guarding, no rebound, no hepatosplenomegaly, no masses. EXTREMITIES: 2+ pulses, warm, well-perfused, no edema. NEUROLOGICAL: Cranial nerves II through XII grossly intact. Normal speech, gait not observed. PSYCH: Normal mood, normal affect. SKIN: Warm, dry, normal turgor, no rashes or lesions noted Laboratory Results - last 24 hr 11/12/19 11/13/19 11/14/19 07:08 22:09 05:32 POC Glucometer 285 150 Homocysteine 10.8 Blood Type Antibody Screen 11/14/19 11/14/19 11/14/19 11:48 15:20 15:20 POC Glucometer 167 Homocysteine Blood Type A POSITIVE A POSITIVE Antibody Screen Negative Active Medications Generic Name Dose Route Start Last Admin Trade Name Freq PRN Reason Stop Dose Admin Acetaminophen 650 mg 11/12/19 13:12 Tylenol - PO Q6H PRN PAIN LEVEL 1 - 3 Amlodipine Besylate 10 mg 11/12/19 13:45 11/14/19 09:28 Norvasc - PO 10 mg DAILY KIMBERLY Administration Aspirin 325 mg 11/10/19 10:00 11/14/19 09:28 Asa - PO Not Given DAILY KIMBERLY Atorvastatin Calcium 40 mg 11/09/19 22:00 11/13/19 22:11 Lipitor - PO 40 mg HS KIMBERLY Administration Bacitracin 1 applic 11/13/19 10:00 11/14/19 09:28 Bacitracin - TP 1 applic DAILY KIMBERLY Administration Clopidogrel Bisulfate 75 mg 11/10/19 10:00 11/14/19 09:29 Plavix - PO Not Given DAILY KIMBERLY Fentanyl 50 mcg 11/14/19 15:54 Sublimaze Injection - IVPUSH [id number] PRN PAIN-PACU ORDER X 4 DOSES ONLY Heparin Sodium (Porcine) 5,000 unit 11/12/19 14:00 11/14/19 14:13 Heparin - SQ Not Given TID [facility] Insulin Aspart 1 vial 11/09/19 22:00 11/14/19 11:49 Novolog Vial Sliding Scale - SQ Not Given ACHS [facility] Protocol Lisinopril 40 mg 11/10/19 10:00 11/14/19 09:28 Prinivil PO 40 mg DAILY KIMBERLY Administration Ondansetron HCl 4 mg 11/14/19 15:54 Zofran Injection IVPUSH Q6H PRN NAUSEA AND/OR VOMITING Oxycodone HCl 10 mg 11/14/19 15:54 Roxicodone - PO 11/15/19 15:53 Q4H PRN PAIN LEVEL 6-10 Promethazine HCl 12.5 mg 11/14/19 15:54 Phenergan Injection - IVPUSH Q6H PRN NAUSEA-FOR RESCUE AFTER 15 MIN Tramadol HCl 50 mg 11/12/19 11:45 11/13/19 09:35 Ultram - PO 50 mg Q4H PRN Administration PAIN LEVEL 6-10 ASSESSMENT/PLAN: - MRI negative for acute infarction showing extensive chronic ischemic changes in white matter of both hemispheres with dilation of ventricles, Dr. Hair suggests c/w asa, plavix and f/u as o/p. - carotid doppler atherosclerotic but no hemodynamically stenosis - Echo showing grade I diastolic dysfunction, 65-70% EF, with mild concentric LVH. ASSESSMENT/PLAN: Josesito Molina is a 69 year old male with PMHx of CVA( 3 years ago, residual L side weakness), NIDDM, HTN, and HLD who presents with right leg weakness for the past week. Pt is admitted to [facility] for CVA workup #PAD with Rt toe ulcer/RLE stenosis - c/ot 5th toe pain as cause of fall but denies weakness on end of the day questioning. - Rt foot xray r/o fracture, tiny calcaneal spur. - no signs of infn - no signs of osteo - duplex sono of RLE showing extensive atherosclerotic plaque present - wound care (Dr. Phillips) - CTA read showing significant stenosis 70-90% in Rt PFA undergoing will wait and see after results of angio. - Podiatry (Genevieve) will wait until after angio report to determine his intervention. He will continue to follow patient. - will touch base with surgery regarding if asa and plavix is ok prior to surgery #Rt lower extremity weakness ? if acute on chronic CVA - CVA ruled out - asa 325 mg, 75 mg plavix continue - continue tight glycemic and BP control - fall precaution - PT eval recommended #HTN - stable -continue lisinopril 40, norvasc 7.5 DM - ISS, BGM -hold metformin, glipizide HLD -continue lipitor 40 F/E/N -monitor lytes - diabetic /sodium controlled diet DVTppx: SCD's on dual anticoagulant/anti-platelet therapy. Visit type - Emergency Visit Emergency Visit: Yes ED Registration Date: 11/09/19 Care time: The patient presented to the Emergency Department on the above date and was hospitalized for further evaluation of their emergent condition. - New Patient This patient is new to me today: No - Critical Care Critical Care patient: No - Discharge Referral Referred to [facility] No ATTENDING PHYSICIAN STATEMENT I saw and evaluated the patient. I reviewed the resident's note and discussed the case with the resident. I agree with the resident's findings and plan as documented. SUBJECTIVE: OBJECTIVE: ASSESSMENT AND PLAN:
--- NOTE | 2019-11-14 17:45 | OP ---
Operative Note - Note: Operative Date: 11/14/19 Pre-Operative Diagnosis: right fifth toe ulcer Operation: Aortogram, RLE angiogram, SFA angioplasty with stent placement Findings: SFA occlusion TP trunk occlusion Collateral flow to foot Post-Operative Diagnosis: Same as Pre-op Surgeon: Danielito Phillips Anesthesia: Fractional Estimated Blood Loss (mls): 50 Operative Report Dictated: Yes
--- NOTE | 2019-11-14 17:48 | PN ---
Progress Note (short form) - Note Progress Note: Vascular surgery S/P SFA angioplasty with stent placement. cont plavix. Can DC frida Follow up in office in one week. Danielito Phillips DO
[2019-11-14] MEDS ORDERED: traMADol HCL 50 MG TABLET PO PRN (18:23)
[2019-11-14] MEDS ORDERED: ACETAMINOPHEN 325 MG TABLET (FP) PO PRN (18:23)
[2019-11-14] MEDS: ATORVASTATIN CA 40 MG TABLET (FP) PO SCH (21:24)
[2019-11-15] MEDS: HEPARIN NA (PORCINE) 5,000 UNITS/ML 1ML VIAL SQ SCH ×3 (06:13→21:21)
[2019-11-15] MEDS: INSULIN SLIDING SCALE (NOVOLOG) 1 VIAL SQ SCH ×4 (06:13→21:22)
[2019-11-15 07:25] LABS: BASO % 0.9 % (0-2.0); EOS % 2.5 % (0-4.5); HEMATOCRIT 36.5 % (35.4-49); HEMOGLOBIN 11.9 GM/dL (11.7-16.9); LYMPH % 27.5 % (8-40); MCH 28.5 pg (25.7-33.7); MCHC 32.7 g/dl (32.0-35.9); MEAN CELL VOLUME 87.1 fl (80-96); MEAN PLT VOLUME 7.7 fl (7.5-11.1); MONO % 8.9 % (3.8-10.2); NEUT % 60.2 % (42.8-82.8); PLATELET COUNT 304 K/MM3 (134-434); RBC 4.19 M/mm3 (4.00-5.60); RDW 13.4 % (11.9-15.9); WHITE BLOOD COUNT 5.5 K/mm3 (4.0-10.0)
[2019-11-15 08:07] LABS: ALBUMIN 3.2 g/dl (3.4-5.0); BILIRUBIN,TOTAL 0.3 mg/dL (0.2-1); BLOOD UREA NITROGEN 17.6 mg/dL (7-18); CALCIUM 9.1 mg/dL (8.5-10.1); CREATININE 0.9 mg/dL (0.55-1.3); POTASSIUM 3.9 mmol/L (3.5-5.1); TOT PROT 7.6 g/dl (6.4-8.2)
[2019-11-15] MEDS ORDERED: PT OWN MED DRAWER 7, Y5N ONE (08:58)
[2019-11-15] MEDS: LISINOPRIL 20 MG TABLET (FP) PO SCH (09:21)
[2019-11-15] MEDS: ASPIRIN 325 MG TABLET PO SCH (09:21)
[2019-11-15] MEDS: amLODIPine BESYLATE 10 MG TABLET (FP) PO SCH (09:22)
[2019-11-15] MEDS: CLOPIDOGREL BISULFATE 75 MG TABLET (FP) PO SCH (09:22)
[2019-11-15] MEDS: BACITRACIN 15 GM TUBE TOPICAL OINTMENT TP SCH (09:22)
--- NOTE | 2019-11-15 11:10 | PN ---
Teaching Attending Note Name of Resident: Hernesto Montana ATTENDING PHYSICIAN STATEMENT I saw and evaluated the patient. I reviewed the resident's note and discussed the case with the resident. I agree with the resident's findings and plan as documented. SUBJECTIVE: Feels well. Pain/tenderness improving. OBJECTIVE: Afebrile, Hemodynamically Stable. Last Vital Signs Temp Pulse Resp BP Pulse Ox 97.9 F 101 H 18 187/89 H 98 11/15/19 10:00 11/15/19 10:00 11/15/19 10:00 11/15/19 10:00 11/15/19 09:00 Heart - S1, S2, RRR Lungs - clear to auscultation Abdomen - soft non-tender. Bowel Sounds normal. Extremities - No edema, small abrasion/wound tip of R 5th toe, more warm, better perfused. Neuro - AAO x 3. Decreased Power LEs - RLE 4-5/5, LLE 4/5. Laboratory Results - last 24 hr 11/12/19 11/14/19 11/14/19 07:08 11:48 15:20 WBC RBC Hgb Hct MCV MCH MCHC RDW Plt Count MPV Absolute Neuts (auto) Neutrophils % Lymphocytes % Monocytes % Eosinophils % Basophils % Nucleated RBC % Sodium Potassium Chloride Carbon Dioxide Anion Gap BUN Creatinine Est GFR (CKD-EPI)AfAm Est GFR (CKD-EPI)NonAf POC Glucometer 167 Random Glucose Calcium Total Bilirubin AST ALT Alkaline Phosphatase Total Protein Albumin Homocysteine 10.8 Blood Type A POSITIVE Antibody Screen Negative 11/14/19 11/14/19 11/14/19 15:20 19:47 21:21 WBC RBC Hgb Hct MCV MCH MCHC RDW Plt Count MPV Absolute Neuts (auto) Neutrophils % Lymphocytes % Monocytes % Eosinophils % Basophils % Nucleated RBC % Sodium Potassium Chloride Carbon Dioxide Anion Gap BUN Creatinine Est GFR (CKD-EPI)AfAm Est GFR (CKD-EPI)NonAf POC Glucometer 150 226 Random Glucose Calcium Total Bilirubin AST ALT Alkaline Phosphatase Total Protein Albumin Homocysteine Blood Type A POSITIVE Antibody Screen 11/15/19 11/15/19 11/15/19 06:00 06:00 06:10 WBC 5.5 RBC 4.19 Hgb 11.9 Hct 36.5 MCV 87.1 MCH 28.5 MCHC 32.7 RDW 13.4 Plt Count 304 MPV 7.7 D Absolute Neuts (auto) 3.3 Neutrophils % 60.2 D Lymphocytes % 27.5 D Monocytes % 8.9 Eosinophils % 2.5 Basophils % 0.9 Nucleated RBC % 0 Sodium 139 Potassium 3.9 Chloride 103 Carbon Dioxide 32 Anion Gap 5 L BUN 17.6 Creatinine 0.9 Est GFR (CKD-EPI)AfAm 101.36 Est GFR (CKD-EPI)NonAf 87.45 POC Glucometer 270 Random Glucose 216 H Calcium 9.1 Total Bilirubin 0.3 AST 31 ALT 44 Alkaline Phosphatase 107 Total Protein 7.6 Albumin 3.2 L Homocysteine Blood Type Antibody Screen Current Medications Generic Name Dose Route Start Last Admin Trade Name Freq PRN Reason Stop Dose Admin Acetaminophen 650 mg 11/14/19 18:23 Tylenol - PO Q6H PRN PAIN LEVEL 1 - 3 Amlodipine Besylate 10 mg 11/15/19 10:00 11/15/19 09:22 Norvasc - PO 10 mg DAILY KIMBERLY Administration Aspirin 325 mg 11/15/19 10:00 11/15/19 09:21 Asa - PO 325 mg DAILY KIMBERLY Administration Atorvastatin Calcium 40 mg 11/14/19 22:00 11/14/19 21:24 Lipitor - PO 40 mg HS KIMBERLY Administration Bacitracin 1 applic 11/15/19 10:00 11/15/19 09:22 Bacitracin - TP 1 applic DAILY KIMBERLY Administration Clopidogrel Bisulfate 75 mg 11/15/19 10:00 11/15/19 09:22 Plavix - PO 75 mg DAILY KIMBERLY Administration Fentanyl 50 mcg 11/14/19 18:23 Sublimaze Injection - IVPUSH Q5M PRN PAIN-PACU ORDER X 4 DOSES ONLY Heparin Sodium (Porcine) 5,000 unit 11/14/19 22:00 11/15/19 06:13 Heparin - SQ 5,000 unit TID KIMBERLY Administration Insulin Aspart 1 vial 11/14/19 22:00 11/15/19 06:13 Novolog Vial Sliding Scale - SQ 6 units ACHS KIMBERLY Administration Protocol Lisinopril 40 mg 11/15/19 10:00 11/15/19 09:21 Prinivil PO 40 mg DAILY KIMBERLY Administration Ondansetron HCl 4 mg 11/14/19 18:23 Zofran Injection IVPUSH Q6H PRN NAUSEA AND/OR VOMITING Oxycodone HCl 10 mg 11/14/19 18:23 Roxicodone - PO 11/15/19 15:53 Q4H PRN PAIN LEVEL 6-10 Promethazine HCl 12.5 mg 11/14/19 18:23 Phenergan Injection - IVPUSH Q6H PRN NAUSEA-FOR RESCUE AFTER 15 MIN Tramadol HCl 50 mg 11/14/19 18:23 Ultram - PO Q4H PRN PAIN LEVEL 6-10 Home Medications Medication Instructions Recorded Amlodipine Besylate 1.5 tab PO DAILY 07/21/19 Atorvastatin Ca [Lipitor] 40 mg PO HS 07/21/19 Glipizide [Glipizide ER] 10 mg PO DAILY 07/21/19 Lisinopril [Zestril] 40 mg PO DAILY 07/21/19 Metformin HCl [Glucophage] 1,000 mg PO BID 07/21/19 Latanoprost 0.005% Eye Drops 1 drop OU HS 11/11/19 [Xalatan 0.005% Eye Drops -] Multivitamin [Multiple Vitamins] 1 tab PO DAILY 11/11/19 Aspirin [ASA -] 325 mg PO DAILY #30 tablet 11/13/19 Clopidogrel Bisulfate [Plavix] 75 mg PO DAILY #30 tablet 11/13/19 ASSESSMENT AND PLAN: 69 year old male with history of CVA (residual L side weakness), DM 2, HTN, HLD who presents with right leg weakness and tender ulceration R 5th toe after Podiatry cut his nails. 1. PAD with RLE small wound/scab tip of R 5th toe US RLE - marked atherosclerotic disease distal superficial femoral to posterior tibial arteries. CT Angiogram - occluded R popliteal/TP trunk/peroneal artery/amterior tibial artery; 90% occluded L SFA s/p Angiogram by Dr. Phillips showing SFA occlusion with Stent placement. Continue Aspirin/Plavix, Statin as per Vascular. Podiatry and Vascular follow-up as out-patient. 2. Increasing LE weakness, chronic CVA on CT CT Head - no acute findings, chronic ischemic changes MRI Brain - extensive chronic ischemic changes in white matter of both hemispheres with dilation of ventricles Evaluated by Neurology - to continue Aspirin/Plavix/Statin. Neuro follow up on DC. 3. DM 2 - resume Glipizide, Metformin on discharge. 4. HTN - on Norvasc, Lisinopril. Norvasc increased to 10mg. Echo showing grade I diastolic dysfunction, 65-70% EF, with mild concentric LVH. Monitor BP - if still elevated, will start on Metoprolol. 5. HLD - continue Lipitor. 6. Non-specific lucency R iliac bone reported on prelim CT report - discussed with radiology - artefact, not seen on subsequent scan. 7. Mild diffuse pancreatic duct dilatation, 2.3 x 1.8cm liver lesion - out- patient non-emergent MRCP recommended and GI follow up. Medically optimized for discharge to SNF.
[2019-11-15] MEDS: metoPROLOL SUCCINATE 25 MG TAB.SR.24H (FP) PO SCH (12:57)
[2019-11-15] MEDS: SENNOSIDES 8.6MG TABLET (FP) PO SCH ×2 (12:58→21:22)
[2019-11-15] MEDS: DOCUSATE SODIUM 100 MG CAPSULE (FP) PO PRN ×2 (12:58→21:22)
[2019-11-15] MEDS ORDERED: GABAPENTIN 100 MG CAPSULE PO SCH (13:00)
[2019-11-15] MEDS ORDERED: GABAPENTIN 100 MG CAPSULE PO ONE (13:00)
--- NOTE | 2019-11-15 13:00 | PN ---
Progress Note (short form) - Note Progress Note: Pt seen in bed. states foot feels better but toes still hurt. s/p vascular procedure Sunday. pt requesting to stay longer. +warm right foot, cool toes right compared to left foot, -open wound, -drainage, pvd s/p vascular intervention no planned procedure at this time from podiatry. will follow. discussed with resident. Advised pt to discuss with Medicine and vascular desire to stay.
--- NOTE | 2019-11-15 16:14 | DS ---
Physical Exam: SUBJECTIVE: Patient seen and examined. States that his foot is feeling better now and it is less painful, still complains of some burning pain. Denies chest pain, abd pain, dizziness, fever, chills, or other concerns. OBJECTIVE: Vital Signs Period Temp Pulse Resp BP Sys/Dennis Pulse Ox Last 24 Hr 97.4 F-98.7 F 82-108 14-20 117-187/71-96 95-100 PHYSICAL EXAM GENERAL: The patient is awake, alert, and fully oriented, in no acute distress. NECK: Trachea midline, full range of motion, supple. LUNGS: Breath sounds equal, clear to auscultation bilaterally, no wheezes, no crackles, no accessory muscle use. HEART: RRR, no murmur noted ABDOMEN: Soft, nontender, nondistended, normoactive bowel sounds, no guarding, no rebound EXTREMITIES: warm, well-perfused, no edema. Right foot with increased warmth today. NEUROLOGICAL: Normal speech, gait no assessed. Sensation intact throughout. PSYCH: Normal mood, normal affect. SKIN: Warm, dry, normal turgor, no rashes or lesions noted LABS Laboratory Results - last 24 hr 11/14/19 11/14/19 11/14/19 15:20 15:20 19:47 WBC RBC Hgb Hct MCV MCH MCHC RDW Plt Count MPV Absolute Neuts (auto) Neutrophils % Lymphocytes % Monocytes % Eosinophils % Basophils % Nucleated RBC % Sodium Potassium Chloride Carbon Dioxide Anion Gap BUN Creatinine Est GFR (CKD-EPI)AfAm Est GFR (CKD-EPI)NonAf POC Glucometer 150 Random Glucose Calcium Total Bilirubin AST ALT Alkaline Phosphatase Total Protein Albumin Blood Type A POSITIVE A POSITIVE Antibody Screen Negative 11/14/19 11/15/19 11/15/19 21:21 06:00 06:00 WBC 5.5 RBC 4.19 Hgb 11.9 Hct 36.5 MCV 87.1 MCH 28.5 MCHC 32.7 RDW 13.4 Plt Count 304 MPV 7.7 D Absolute Neuts (auto) 3.3 Neutrophils % 60.2 D Lymphocytes % 27.5 D Monocytes % 8.9 Eosinophils % 2.5 Basophils % 0.9 Nucleated RBC % 0 Sodium 139 Potassium 3.9 Chloride 103 Carbon Dioxide 32 Anion Gap 5 L BUN 17.6 Creatinine 0.9 Est GFR (CKD-EPI)AfAm 101.36 Est GFR (CKD-EPI)NonAf 87.45 POC Glucometer 226 Random Glucose 216 H Calcium 9.1 Total Bilirubin 0.3 AST 31 ALT 44 Alkaline Phosphatase 107 Total Protein 7.6 Albumin 3.2 L Blood Type Antibody Screen 11/15/19 11/15/19 06:10 11:07 WBC RBC Hgb Hct MCV MCH MCHC RDW Plt Count MPV Absolute Neuts (auto) Neutrophils % Lymphocytes % Monocytes % Eosinophils % Basophils % Nucleated RBC % Sodium Potassium Chloride Carbon Dioxide Anion Gap BUN Creatinine Est GFR (CKD-EPI)AfAm Est GFR (CKD-EPI)NonAf POC Glucometer 270 280 Random Glucose Calcium Total Bilirubin AST ALT Alkaline Phosphatase Total Protein Albumin Blood Type Antibody Screen HOSPITAL COURSE: Date of Admission:11/09/19 Date of Discharge: 11/15/19 69 year old male with PMHx of CVA (3 years ago, residual L side weakness), NIDDM , HTN, and HLD who presents with right leg weakness for the past week. [facility] for CVA workup. CVA was ruled out with imaging, only chronic ischemic changes noted. MRI without signs of acute stroke, chronic ischemic changes noted. Patient was evaluated by neurology and will follow up with Neurology after discharge. Carotid doppler showed atherosclerosis but not hemodynamically significant stenosis. ECHO showed grade 1 diastolic dysfunction , 65-70% EF, with mild concentric LVH. Patient complained of right lower extremity pain. Xrays of right foot without evidence of fractures without signs of infection or osteomyelitis. U/S of RLE showed extensive atherosclerotic disease from the distal superficial femoral to the posterior tibial arteries. CTA showed occluded R popliteal/TP trunk/Peroneal artery, anterior tibial artery and 90% occluded L SFA. Patient went angioplasty with stent placement with improvement of symptoms. Patient to continue aspirin, plavix, and statin as per Vascular surgery. Patient to follow up with Vascular surgery and podiatry within 1 week after discharge. Patient's Norvasc medication was increased to 10mg daily from 5mg daily due to increased blood pressure and Metoprolol 12.5mg daily was started as patient's BP was still elevated. On imaging, there was an incidental finding of 2.3 x 1.8cm liver lesion. Patient recommended to follow up with GI 1-2 weeks after discharge for further workup and possible MRCP. Patient stable for discharge to SNF. Minutes to complete discharge: 36 Discharge Summary Problems reviewed: Yes Reason For Visit: TYPE 2 DIABETES MELLITUS, TRANSIENT ISCHEMIC Condition: Improved - Instructions Diet, Activity, Other Instructions: You were admitted for weakness in your right leg and several imaging studies suggest that you did not have a stroke. You were placed on blood thinner medications that you will continue when you are home. You were evaluated for right leg vessel closure and we found that you had some cholesterol buildup in one of your vessels in your leg on imaging (duplex) and were seen by vascular surgery (Dr. Phillips) who performed an angiogram (imaging test to look for narrowing in your vessels of your leg) which was fixed but you should follow up with Dr Phillips within a week of discharge and for you toe you should follow up with the foot doctor (Dr. Vallejo). You should follow up with your Primary doctor in 1 week as well. Medication Changes: 1. Continue taking Plavix 75mg once daily, this is a medication that thins your blood and will help prevent future strokes and blockage of the vessels in your legs. 2. START taking Aspirin 325mg once daily. 3. Your Norvasc dose was increased to 10mg daily for better control if your blood pressure. Follow up with the following physicians: 1. You stated that you do not have a primary care physician, you are being given a referral to [facility] group. Please follow up within one week of discharge to discuss care of your medical conditions and to discuss the medications you were started on while in the hospital. 2. Recommended to follow up with Dr. Phillips, vascular surgery, within 1 week of discharge to discuss the procedure that was performed on your leg and for further care. 3. Recommended to follow up with Dr. Duke, Podiatry (foot doctor), within 1 week of discharge for further care of the wound on your foot. 4. Recommended to follow up with Dr. Shaw, Hematology/Oncology, within 1-2 weeks of discharge as your were found to have some abnormalities of your bones that were found on imaging. 5. Recommended to follow up with Dr. Mendez, Gastroenterology, within 1-2 weeks of discharge as you were found to have a lesion in your liver on imaging and may need MRI imaging of your liver/pancreas/gallbladder. 6. Recommended to follow up with Dr. Engel, Neurology, as you were evaluated while you in the hospital for possible stroke but we did not find any evidence an acute stroke at this time. Activity and Diet 1. You are being discharged to a [facility] for continuing care and for rehab. Please take care to avoid trauma to your lower extremities. 2. Please monitor your diet as you need to intake foods with less salt, fat, and sugar and drink plenty of fluids. 3. You are continuing to take a blood thinning medication, if you notice signs of bleeding such as confusion, increased nosebleeds, blood in your urine, blood in your stool, or other concerning symptoms please contact your primary care doctor immediately or return to the emergency department immediately. Continue all your other medications as prescribed Please return to the ER if you have any signs or symptoms of chest pain, shortness of breath, uncontrollable fever, chills, nausea, vomiting, numbness, tingling, or weakness in any part of your body, changes in vision, or slurred speech. Please return to the ER if symptoms persist, worsen, or new symptoms arise. Referrals: [facility] [place] [facility] [place] [Provider Group] Danielito Phillips MD [Non Staff, Medical] - 1 Week Ernesto Shaw MD [Staff Physician] - 1 Week (w/u for multiple myeloma given diffuse areas of lucency throughout spine and pelvis on CTA review when speaking with Dr. Robin. ) Tera Engel MD [Staff Physician] - Vasiliy Vallejo DPM [Staff Physician] - Adan Mendez MD [Staff Physician] - Disposition: HALF-WAY FACILITY - Home Medications Comprehensive Discharge Medication List: Ambulatory Orders Atorvastatin Ca [Lipitor] 40 mg PO HS 07/21/19 Glipizide [Glipizide ER] 10 mg PO DAILY 07/21/19 Lisinopril [Zestril] 40 mg PO DAILY 07/21/19 Metformin HCl [Glucophage] 1,000 mg PO BID 07/21/19 Latanoprost 0.005% Eye Drops [Xalatan 0.005% Eye Drops -] 1 drop OU HS 11/11/19 Multivitamin [Multiple Vitamins] 1 tab PO DAILY 11/11/19 Amlodipine Besylate [Norvasc -] 10 mg PO DAILY 30 Days #30 tablet 11/15/19 Aspirin [ASA -] 325 mg PO DAILY tablet 01/18/20 Clopidogrel Bisulfate [Plavix -] 75 mg PO DAILY tablet 11/15/19 This patient is new to me today: Yes Date on this admission: 11/15/19 Emergency Visit: No Critical Care patient: No - Discharge Referral Referred to [facility] No ATTENDING PHYSICIAN STATEMENT I saw and evaluated the patient. I reviewed the resident's note and discussed the case with the resident. I agree with the resident's findings and plan as documented. SUBJECTIVE: OBJECTIVE: ASSESSMENT AND PLAN:
[2019-11-15] MEDS: ATORVASTATIN CA 40 MG TABLET (FP) PO SCH (21:22)
[2019-11-16] MEDS: INSULIN SLIDING SCALE (NOVOLOG) 1 VIAL SQ SCH ×2 (06:36→12:25)
[2019-11-16] MEDS: HEPARIN NA (PORCINE) 5,000 UNITS/ML 1ML VIAL SQ SCH ×2 (06:37→13:58)
[2019-11-16 07:02] VITALS: PULSE 91
[2019-11-16] MEDS: amLODIPine BESYLATE 10 MG TABLET (FP) PO SCH (10:02)
[2019-11-16] MEDS: metoPROLOL SUCCINATE 25 MG TAB.SR.24H (FP) PO SCH (10:03)
[2019-11-16] MEDS: CLOPIDOGREL BISULFATE 75 MG TABLET (FP) PO SCH (10:03)
[2019-11-16] MEDS: LISINOPRIL 20 MG TABLET (FP) PO SCH (10:05)
[2019-11-16] MEDS: ASPIRIN 325 MG TABLET PO SCH (10:05)
[2019-11-16] MEDS: SENNOSIDES 8.6MG TABLET (FP) PO SCH (10:05)
[2019-11-16] MEDS: BACITRACIN 15 GM TUBE TOPICAL OINTMENT TP SCH (10:06)
[2019-11-16 10:42] VITALS: BP 155/87; TEMP 98.1
--- NOTE | 2019-11-16 12:18 | DS ---
Physical Exam: SUBJECTIVE: Feels well. Pain/tenderness RLE improving. OBJECTIVE: Afebrile, Hemodynamically Stable. Last Vital Signs Temp Pulse Resp BP Pulse Ox 98.1 F 91 H 18 155/87 97 11/16/19 10:00 11/16/19 10:00 11/16/19 10:00 11/16/19 10:00 11/16/19 08:33 Heart - S1, S2, RRR Lungs - clear to auscultation Abdomen - soft non-tender. Bowel Sounds normal. Extremities - No edema, small abrasion/wound tip of R 5th toe, appears helaed. RLE warmer and better perfused. Neuro - AAO x 3. Decreased Power LEs - RLE 4-5/5, LLE 4/5. Laboratory Tests 11/09/19 11/09/19 11/09/19 17:02 17:25 17:25 WBC 6.6 RBC 4.26 Hgb 12.1 Hct 37.4 MCV 87.8 MCH 28.3 MCHC 32.3 RDW 14.1 Plt Count 272 D MPV 8.5 Absolute Neuts (auto) 4.2 Neutrophils % 62.6 D Lymphocytes % 27.0 D Monocytes % 7.2 Eosinophils % 2.6 Basophils % 0.6 Nucleated RBC % 0 ESR Sodium 137 Potassium 5.0 Chloride 102 Carbon Dioxide 28 Anion Gap 7 L BUN 13.9 Creatinine 0.9 Est GFR (CKD-EPI)AfAm 101.36 Est GFR (CKD-EPI)NonAf 87.45 POC Glucometer 255 Random Glucose 252 H Hemoglobin A1c % Calcium 9.2 Phosphorus Magnesium Total Bilirubin 0.4 AST 33 ALT 19 Alkaline Phosphatase 94 Total Protein 7.3 Albumin 3.1 L Triglycerides Cholesterol Total LDL Cholesterol HDL Cholesterol Vitamin B12 1082 H Homocysteine TSH Free T4 Thyroxine (T4) Free T3 Urine Color Urine Appearance Urine pH Ur Specific [place] Urine Protein Urine Glucose (UA) Urine Ketones Urine Blood Urine Nitrite Urine Bilirubin Urine Urobilinogen Ur Leukocyte Esterase Urine WBC (Auto) Urine RBC (Auto) Urine Casts (Auto) U Epithel Cells (Auto) Urine Bacteria (Auto) Urine Yeast (Auto) Blood Type Antibody Screen 11/09/19 11/09/19 11/10/19 21:04 22:01 06:00 WBC RBC Hgb Hct MCV MCH MCHC RDW Plt Count MPV Absolute Neuts (auto) Neutrophils % Lymphocytes % Monocytes % Eosinophils % Basophils % Nucleated RBC % ESR Sodium Potassium Chloride Carbon Dioxide Anion Gap BUN Creatinine Est GFR (CKD-EPI)AfAm Est GFR (CKD-EPI)NonAf POC Glucometer 211 Random Glucose Hemoglobin A1c % 8.6 H Calcium Phosphorus Magnesium Total Bilirubin AST ALT Alkaline Phosphatase Total Protein Albumin Triglycerides Cholesterol Total LDL Cholesterol HDL Cholesterol Vitamin B12 Homocysteine TSH Free T4 Thyroxine (T4) Free T3 Urine Color Yellow Urine Appearance Clear Urine pH 5.5 Ur Specific [place] 1.037 H Urine Protein 2+ H Urine Glucose (UA) 3+ H Urine Ketones Negative Urine Blood 2+ H Urine Nitrite Negative Urine Bilirubin Negative Urine Urobilinogen 1.0 Ur Leukocyte Esterase Negative Urine WBC (Auto) 3 Urine RBC (Auto) 53.7 Urine Casts (Auto) 3 U Epithel Cells (Auto) 4.4 Urine Bacteria (Auto) 99.3 Urine Yeast (Auto) None seen Blood Type Antibody Screen 11/10/19 11/10/19 11/10/19 07:12 09:00 11:05 WBC 4.9 RBC 4.26 Hgb 12.1 Hct 37.0 MCV 86.9 MCH 28.4 MCHC 32.7 RDW 13.7 Plt Count 275 MPV 8.2 Absolute Neuts (auto) 2.3 Neutrophils % 48.4 D Lymphocytes % 42.6 H D Monocytes % 5.7 Eosinophils % 2.6 Basophils % 0.7 Nucleated RBC % 0 ESR 56 H Sodium Potassium Chloride Carbon Dioxide Anion Gap BUN Creatinine Est GFR (CKD-EPI)AfAm Est GFR (CKD-EPI)NonAf POC Glucometer 154 Random Glucose Hemoglobin A1c % Calcium Phosphorus Magnesium Total Bilirubin AST ALT Alkaline Phosphatase Total Protein Albumin Triglycerides Cholesterol Total LDL Cholesterol HDL Cholesterol Vitamin B12 Homocysteine TSH Free T4 Thyroxine (T4) Free T3 2.6 Urine Color Urine Appearance Urine pH Ur Specific [place] Urine Protein Urine Glucose (UA) Urine Ketones Urine Blood Urine Nitrite Urine Bilirubin Urine Urobilinogen Ur Leukocyte Esterase Urine WBC (Auto) Urine RBC (Auto) Urine Casts (Auto) U Epithel Cells (Auto) Urine Bacteria (Auto) Urine Yeast (Auto) Blood Type Antibody Screen 11/10/19 11/10/19 11/10/19 11:25 11:25 18:56 WBC RBC Hgb Hct MCV MCH MCHC RDW Plt Count MPV Absolute Neuts (auto) Neutrophils % Lymphocytes % Monocytes % Eosinophils % Basophils % Nucleated RBC % ESR Sodium 134 L Potassium 3.9 Chloride 96 L Carbon Dioxide 33 H Anion Gap 6 L BUN 12.0 Creatinine 0.7 Est GFR (CKD-EPI)AfAm 112.38 Est GFR (CKD-EPI)NonAf 96.97 POC Glucometer 204 Random Glucose 223 H Hemoglobin A1c % Calcium 9.2 Phosphorus 3.4 Magnesium 1.8 Total Bilirubin 0.6 AST 13 L ALT 17 Alkaline Phosphatase 95 Total Protein 7.5 Albumin 3.4 Triglycerides 57 Cholesterol 124 Total LDL Cholesterol 65 HDL Cholesterol 52 Vitamin B12 Homocysteine TSH 0.20 L Free T4 1.51 H Thyroxine (T4) 13.7 Free T3 Urine Color Urine Appearance Urine pH Ur Specific [place] Urine Protein Urine Glucose (UA) Urine Ketones Urine Blood Urine Nitrite Urine Bilirubin Urine Urobilinogen Ur Leukocyte Esterase Urine WBC (Auto) Urine RBC (Auto) Urine Casts (Auto) U Epithel Cells (Auto) Urine Bacteria (Auto) Urine Yeast (Auto) Blood Type Antibody Screen 11/11/19 11/11/19 11/11/19 00:25 06:47 07:28 WBC RBC Hgb Hct MCV MCH MCHC RDW Plt Count MPV Absolute Neuts (auto) Neutrophils % Lymphocytes % Monocytes % Eosinophils % Basophils % Nucleated RBC % ESR Sodium 136 Potassium 3.5 Chloride 99 Carbon Dioxide 31 Anion Gap 6 L BUN 14.7 Creatinine 0.8 Est GFR (CKD-EPI)AfAm 106.38 Est GFR (CKD-EPI)NonAf 91.79 POC Glucometer 384 163 Random Glucose 280 H Hemoglobin A1c % Calcium 8.8 Phosphorus Magnesium Total Bilirubin 0.2 AST 15 ALT 15 Alkaline Phosphatase 80 Total Protein 6.8 Albumin 3.0 L Triglycerides Cholesterol Total LDL Cholesterol HDL Cholesterol Vitamin B12 Homocysteine TSH Free T4 Thyroxine (T4) Free T3 Urine Color Urine Appearance Urine pH Ur Specific [place] Urine Protein Urine Glucose (UA) Urine Ketones Urine Blood Urine Nitrite Urine Bilirubin Urine Urobilinogen Ur Leukocyte Esterase Urine WBC (Auto) Urine RBC (Auto) Urine Casts (Auto) U Epithel Cells (Auto) Urine Bacteria (Auto) Urine Yeast (Auto) Blood Type Antibody Screen 11/11/19 11/11/19 11/11/19 07:28 11:52 17:36 WBC 5.8 RBC 4.01 Hgb 11.4 L Hct 34.6 L MCV 86.3 MCH 28.4 MCHC 32.9 RDW 13.8 Plt Count 261 MPV 8.2 Absolute Neuts (auto) 3.5 Neutrophils % 61.1 D Lymphocytes % 27.8 D Monocytes % 8.5 Eosinophils % 2.1 Basophils % 0.5 Nucleated RBC % 0 ESR Sodium Potassium Chloride Carbon Dioxide Anion Gap BUN Creatinine Est GFR (CKD-EPI)AfAm Est GFR (CKD-EPI)NonAf POC Glucometer 309 337 Random Glucose Hemoglobin A1c % Calcium Phosphorus Magnesium Total Bilirubin AST ALT Alkaline Phosphatase Total Protein Albumin Triglycerides Cholesterol Total LDL Cholesterol HDL Cholesterol Vitamin B12 Homocysteine TSH Free T4 Thyroxine (T4) Free T3 Urine Color Urine Appearance Urine pH Ur Specific [place] Urine Protein Urine Glucose (UA) Urine Ketones Urine Blood Urine Nitrite Urine Bilirubin Urine Urobilinogen Ur Leukocyte Esterase Urine WBC (Auto) Urine RBC (Auto) Urine Casts (Auto) U Epithel Cells (Auto) Urine Bacteria (Auto) Urine Yeast (Auto) Blood Type Antibody Screen 11/11/19 11/12/19 11/12/19 21:52 06:32 07:08 WBC 6.0 RBC 4.18 Hgb 11.9 Hct 36.3 MCV 86.8 MCH 28.4 MCHC 32.7 RDW 13.3 Plt Count 281 MPV 8.1 Absolute Neuts (auto) 3.1 Neutrophils % 52.2 Lymphocytes % 35.7 D Monocytes % 8.5 Eosinophils % 3.0 Basophils % 0.6 Nucleated RBC % 0 ESR Sodium Potassium Chloride Carbon Dioxide Anion Gap BUN Creatinine Est GFR (CKD-EPI)AfAm Est GFR (CKD-EPI)NonAf POC Glucometer 72 180 Random Glucose Hemoglobin A1c % Calcium Phosphorus Magnesium Total Bilirubin AST ALT Alkaline Phosphatase Total Protein Albumin Triglycerides Cholesterol Total LDL Cholesterol HDL Cholesterol Vitamin B12 Homocysteine TSH Free T4 Thyroxine (T4) Free T3 Urine Color Urine Appearance Urine pH Ur Specific [place] Urine Protein Urine Glucose (UA) Urine Ketones Urine Blood Urine Nitrite Urine Bilirubin Urine Urobilinogen Ur Leukocyte Esterase Urine WBC (Auto) Urine RBC (Auto) Urine Casts (Auto) U Epithel Cells (Auto) Urine Bacteria (Auto) Urine Yeast (Auto) Blood Type Antibody Screen 11/12/19 11/12/19 11/12/19 07:08 07:08 12:24 WBC RBC Hgb Hct MCV MCH MCHC RDW Plt Count MPV Absolute Neuts (auto) Neutrophils % Lymphocytes % Monocytes % Eosinophils % Basophils % Nucleated RBC % ESR Sodium 138 Potassium 3.6 Chloride 102 Carbon Dioxide 30 Anion Gap 6 L BUN 11.5 Creatinine 0.7 Est GFR (CKD-EPI)AfAm 112.38 Est GFR (CKD-EPI)NonAf 96.97 POC Glucometer 346 Random Glucose 195 H Hemoglobin A1c % Calcium 8.7 Phosphorus Magnesium Total Bilirubin 0.3 AST 15 ALT 17 Alkaline Phosphatase 80 Total Protein 6.9 Albumin 3.0 L Triglycerides Cholesterol Total LDL Cholesterol HDL Cholesterol Vitamin B12 Homocysteine 10.8 TSH Free T4 Thyroxine (T4) Free T3 Urine Color Urine Appearance Urine pH Ur Specific [place] Urine Protein Urine Glucose (UA) Urine Ketones Urine Blood Urine Nitrite Urine Bilirubin Urine Urobilinogen Ur Leukocyte Esterase Urine WBC (Auto) Urine RBC (Auto) Urine Casts (Auto) U Epithel Cells (Auto) Urine Bacteria (Auto) Urine Yeast (Auto) Blood Type Antibody Screen 11/12/19 11/12/19 11/13/19 16:35 21:31 06:10 WBC RBC Hgb Hct MCV MCH MCHC RDW Plt Count MPV Absolute Neuts (auto) Neutrophils % Lymphocytes % Monocytes % Eosinophils % Basophils % Nucleated RBC % ESR Sodium Potassium Chloride Carbon Dioxide Anion Gap BUN Creatinine Est GFR (CKD-EPI)AfAm Est GFR (CKD-EPI)NonAf POC Glucometer 335 332 154 Random Glucose Hemoglobin A1c % Calcium Phosphorus Magnesium Total Bilirubin AST ALT Alkaline Phosphatase Total Protein Albumin Triglycerides Cholesterol Total LDL Cholesterol HDL Cholesterol Vitamin B12 Homocysteine TSH Free T4 Thyroxine (T4) Free T3 Urine Color Urine Appearance Urine pH Ur Specific [place] Urine Protein Urine Glucose (UA) Urine Ketones Urine Blood Urine Nitrite Urine Bilirubin Urine Urobilinogen Ur Leukocyte Esterase Urine WBC (Auto) Urine RBC (Auto) Urine Casts (Auto) U Epithel Cells (Auto) Urine Bacteria (Auto) Urine Yeast (Auto) Blood Type Antibody Screen 11/13/19 11/13/19 11/13/19 06:39 06:39 11:02 WBC 5.6 RBC 4.03 Hgb 11.4 L Hct 35.1 L MCV 87.3 MCH 28.4 MCHC 32.6 RDW 13.5 Plt Count 264 MPV 8.7 Absolute Neuts (auto) 2.7 Neutrophils % 47.2 Lymphocytes % 41.9 H Monocytes % 7.6 Eosinophils % 2.8 Basophils % 0.5 Nucleated RBC % 0 ESR Sodium 139 Potassium 3.9 Chloride 103 Carbon Dioxide 30 Anion Gap 6 L BUN 14.0 Creatinine 0.7 Est GFR (CKD-EPI)AfAm 112.38 Est GFR (CKD-EPI)NonAf 96.97 POC Glucometer 256 Random Glucose 131 H Hemoglobin A1c % Calcium 8.9 Phosphorus Magnesium Total Bilirubin 0.3 AST 42 H ALT 45 Alkaline Phosphatase 89 Total Protein 6.7 Albumin 3.0 L Triglycerides Cholesterol Total LDL Cholesterol HDL Cholesterol Vitamin B12 Homocysteine TSH Free T4 Thyroxine (T4) Free T3 Urine Color Urine Appearance Urine pH Ur Specific [place] Urine Protein Urine Glucose (UA) Urine Ketones Urine Blood Urine Nitrite Urine Bilirubin Urine Urobilinogen Ur Leukocyte Esterase Urine WBC (Auto) Urine RBC (Auto) Urine Casts (Auto) U Epithel Cells (Auto) Urine Bacteria (Auto) Urine Yeast (Auto) Blood Type Antibody Screen 11/13/19 11/13/19 11/14/19 16:41 22:09 05:32 WBC RBC Hgb Hct MCV MCH MCHC RDW Plt Count MPV Absolute Neuts (auto) Neutrophils % Lymphocytes % Monocytes % Eosinophils % Basophils % Nucleated RBC % ESR Sodium Potassium Chloride Carbon Dioxide Anion Gap BUN Creatinine Est GFR (CKD-EPI)AfAm Est GFR (CKD-EPI)NonAf POC Glucometer 253 285 150 Random Glucose Hemoglobin A1c % Calcium Phosphorus Magnesium Total Bilirubin AST ALT Alkaline Phosphatase Total Protein Albumin Triglycerides Cholesterol Total LDL Cholesterol HDL Cholesterol Vitamin B12 Homocysteine TSH Free T4 Thyroxine (T4) Free T3 Urine Color Urine Appearance Urine pH Ur Specific [place] Urine Protein Urine Glucose (UA) Urine Ketones Urine Blood Urine Nitrite Urine Bilirubin Urine Urobilinogen Ur Leukocyte Esterase Urine WBC (Auto) Urine RBC (Auto) Urine Casts (Auto) U Epithel Cells (Auto) Urine Bacteria (Auto) Urine Yeast (Auto) Blood Type Antibody Screen 11/14/19 11/14/19 11/14/19 11:48 15:20 15:20 WBC RBC Hgb Hct MCV MCH MCHC RDW Plt Count MPV Absolute Neuts (auto) Neutrophils % Lymphocytes % Monocytes % Eosinophils % Basophils % Nucleated RBC % ESR Sodium Potassium Chloride Carbon Dioxide Anion Gap BUN Creatinine Est GFR (CKD-EPI)AfAm Est GFR (CKD-EPI)NonAf POC Glucometer 167 Random Glucose Hemoglobin A1c % Calcium Phosphorus Magnesium Total Bilirubin AST ALT Alkaline Phosphatase Total Protein Albumin Triglycerides Cholesterol Total LDL Cholesterol HDL Cholesterol Vitamin B12 Homocysteine TSH Free T4 Thyroxine (T4) Free T3 Urine Color Urine Appearance Urine pH Ur Specific [place] Urine Protein Urine Glucose (UA) Urine Ketones Urine Blood Urine Nitrite Urine Bilirubin Urine Urobilinogen Ur Leukocyte Esterase Urine WBC (Auto) Urine RBC (Auto) Urine Casts (Auto) U Epithel Cells (Auto) Urine Bacteria (Auto) Urine Yeast (Auto) Blood Type A POSITIVE A POSITIVE Antibody Screen Negative 11/14/19 11/14/19 11/15/19 19:47 21:21 06:00 WBC 5.5 RBC 4.19 Hgb 11.9 Hct 36.5 MCV 87.1 MCH 28.5 MCHC 32.7 RDW 13.4 Plt Count 304 MPV 7.7 D Absolute Neuts (auto) 3.3 Neutrophils % 60.2 D Lymphocytes % 27.5 D Monocytes % 8.9 Eosinophils % 2.5 Basophils % 0.9 Nucleated RBC % 0 ESR Sodium Potassium Chloride Carbon Dioxide Anion Gap BUN Creatinine Est GFR (CKD-EPI)AfAm Est GFR (CKD-EPI)NonAf POC Glucometer 150 226 Random Glucose Hemoglobin A1c % Calcium Phosphorus Magnesium Total Bilirubin AST ALT Alkaline Phosphatase Total Protein Albumin Triglycerides Cholesterol Total LDL Cholesterol HDL Cholesterol Vitamin B12 Homocysteine TSH Free T4 Thyroxine (T4) Free T3 Urine Color Urine Appearance Urine pH Ur Specific [place] Urine Protein Urine Glucose (UA) Urine Ketones Urine Blood Urine Nitrite Urine Bilirubin Urine Urobilinogen Ur Leukocyte Esterase Urine WBC (Auto) Urine RBC (Auto) Urine Casts (Auto) U Epithel Cells (Auto) Urine Bacteria (Auto) Urine Yeast (Auto) Blood Type Antibody Screen 11/15/19 11/15/19 11/15/19 06:00 06:10 11:07 WBC RBC Hgb Hct MCV MCH MCHC RDW Plt Count MPV Absolute Neuts (auto) Neutrophils % Lymphocytes % Monocytes % Eosinophils % Basophils % Nucleated RBC % ESR Sodium 139 Potassium 3.9 Chloride 103 Carbon Dioxide 32 Anion Gap 5 L BUN 17.6 Creatinine 0.9 Est GFR (CKD-EPI)AfAm 101.36 Est GFR (CKD-EPI)NonAf 87.45 POC Glucometer 270 280 Random Glucose 216 H Hemoglobin A1c % Calcium 9.1 Phosphorus Magnesium Total Bilirubin 0.3 AST 31 ALT 44 Alkaline Phosphatase 107 Total Protein 7.6 Albumin 3.2 L Triglycerides Cholesterol Total LDL Cholesterol HDL Cholesterol Vitamin B12 Homocysteine TSH Free T4 Thyroxine (T4) Free T3 Urine Color Urine Appearance Urine pH Ur Specific [place] Urine Protein Urine Glucose (UA) Urine Ketones Urine Blood Urine Nitrite Urine Bilirubin Urine Urobilinogen Ur Leukocyte Esterase Urine WBC (Auto) Urine RBC (Auto) Urine Casts (Auto) U Epithel Cells (Auto) Urine Bacteria (Auto) Urine Yeast (Auto) Blood Type Antibody Screen 11/15/19 11/15/19 11/16/19 16:15 21:19 06:36 WBC RBC Hgb Hct MCV MCH MCHC RDW Plt Count MPV Absolute Neuts (auto) Neutrophils % Lymphocytes % Monocytes % Eosinophils % Basophils % Nucleated RBC % ESR Sodium Potassium Chloride Carbon Dioxide Anion Gap BUN Creatinine Est GFR (CKD-EPI)AfAm Est GFR (CKD-EPI)NonAf POC Glucometer 202 294 151 Random Glucose Hemoglobin A1c % Calcium Phosphorus Magnesium Total Bilirubin AST ALT Alkaline Phosphatase Total Protein Albumin Triglycerides Cholesterol Total LDL Cholesterol HDL Cholesterol Vitamin B12 Homocysteine TSH Free T4 Thyroxine (T4) Free T3 Urine Color Urine Appearance Urine pH Ur Specific [place] Urine Protein Urine Glucose (UA) Urine Ketones Urine Blood Urine Nitrite Urine Bilirubin Urine Urobilinogen Ur Leukocyte Esterase Urine WBC (Auto) Urine RBC (Auto) Urine Casts (Auto) U Epithel Cells (Auto) Urine Bacteria (Auto) Urine Yeast (Auto) Blood Type Antibody Screen 11/16/19 11:49 WBC RBC Hgb Hct MCV MCH MCHC RDW Plt Count MPV Absolute Neuts (auto) Neutrophils % Lymphocytes % Monocytes % Eosinophils % Basophils % Nucleated RBC % ESR Sodium Potassium Chloride Carbon Dioxide Anion Gap BUN Creatinine Est GFR (CKD-EPI)AfAm Est GFR (CKD-EPI)NonAf POC Glucometer 306 Random Glucose Hemoglobin A1c % Calcium Phosphorus Magnesium Total Bilirubin AST ALT Alkaline Phosphatase Total Protein Albumin Triglycerides Cholesterol Total LDL Cholesterol HDL Cholesterol Vitamin B12 Homocysteine TSH Free T4 Thyroxine (T4) Free T3 Urine Color Urine Appearance Urine pH Ur Specific [place] Urine Protein Urine Glucose (UA) Urine Ketones Urine Blood Urine Nitrite Urine Bilirubin Urine Urobilinogen Ur Leukocyte Esterase Urine WBC (Auto) Urine RBC (Auto) Urine Casts (Auto) U Epithel Cells (Auto) Urine Bacteria (Auto) Urine Yeast (Auto) Blood Type Antibody Screen Current Medications Generic Name Dose Route Start Last Admin Trade Name Freq PRN Reason Stop Dose Admin Acetaminophen 650 mg 11/14/19 18:23 Tylenol - PO Q6H PRN PAIN LEVEL 1 - 3 Amlodipine Besylate 10 mg 11/15/19 10:00 11/16/19 10:02 Norvasc - PO 10 mg DAILY KIMBERLY Administration Aspirin 325 mg 11/15/19 10:00 11/16/19 10:05 Asa - PO 325 mg DAILY KIMBERLY Administration Atorvastatin Calcium 40 mg 11/14/19 22:00 11/15/19 21:22 Lipitor - PO 40 mg HS KIMBERLY Administration Bacitracin 1 applic 11/15/19 10:00 11/16/19 10:06 Bacitracin - TP 1 applic DAILY KIMBERLY Administration Clopidogrel Bisulfate 75 mg 11/15/19 10:00 11/16/19 10:03 Plavix - PO 75 mg DAILY KIMBERLY Administration Docusate Sodium 100 mg 11/15/19 12:29 11/15/19 21:22 Colace - PO 100 mg BID PRN Administration CONSTIPATION Fentanyl 50 mcg 11/14/19 18:23 Sublimaze Injection - IVPUSH Q5M PRN PAIN-PACU ORDER X 4 DOSES ONLY Heparin Sodium (Porcine) 5,000 unit 11/14/19 22:00 11/16/19 06:37 Heparin - SQ 5,000 unit TID KIMBERLY Administration Insulin Aspart 1 vial 11/14/19 22:00 11/16/19 06:36 Novolog Vial Sliding Scale - SQ 2 units ACHS KIMBERLY Administration Protocol Lisinopril 40 mg 11/15/19 10:00 11/16/19 10:05 Prinivil PO 40 mg DAILY KIMBERLY Administration Metoprolol Succinate 12.5 mg 11/15/19 12:30 11/16/19 10:03 Toprol Xl - PO 12.5 mg DAILY KIMBERLY Administration Ondansetron HCl 4 mg 11/14/19 18:23 Zofran Injection IVPUSH Q6H PRN NAUSEA AND/OR VOMITING Promethazine HCl 12.5 mg 11/14/19 18:23 Phenergan Injection - IVPUSH Q6H PRN NAUSEA-FOR RESCUE AFTER 15 MIN Senna 1 tab 11/15/19 12:30 11/16/19 10:05 Senna - PO 1 tab BID KIMBERLY Administration Tramadol HCl 50 mg 11/14/19 18:23 Ultram - PO Q4H PRN PAIN LEVEL 6-10 Discharge Medications Medication Instructions Recorded Atorvastatin Ca [Lipitor] 40 mg PO HS 07/21/19 Glipizide [Glipizide ER] 10 mg PO DAILY 07/21/19 Lisinopril [Zestril] 40 mg PO DAILY 07/21/19 Metformin HCl [Glucophage] 1,000 mg PO BID 07/21/19 Latanoprost 0.005% Eye Drops 1 drop OU HS 11/11/19 [Xalatan 0.005% Eye Drops -] Multivitamin [Multiple Vitamins] 1 tab PO DAILY 11/11/19 Amlodipine Besylate [Norvasc -] 10 mg PO DAILY 30 Days #30 tablet 11/15/19 Aspirin [ASA -] 325 mg PO DAILY tablet 11/15/19 Clopidogrel Bisulfate [Plavix -] 75 mg PO DAILY tablet 11/15/19 Metoprolol Succinate [Toprol XL -] 12.5 mg PO DAILY #30 tab.sr.24h 11/15/19 Date of Admission:11/09/19 Date of Discharge: 11/16/19 Minutes to complete discharge: 45 Discharge Summary Problems reviewed: Yes Reason For Visit: TYPE 2 DIABETES MELLITUS, TRANSIENT ISCHEMIC Current Active Problems Peripheral arterial occlusive disease (Acute) Peripheral arterial occlusive disease (Acute) Hospital Course: 69 year old male with history of CVA (residual L side weakness), DM 2, HTN, HLD who presents with right leg weakness and tender ulceration R 5th toe after Podiatry cut his nails. 1. PAD with RLE small wound/scab tip of R 5th toe US RLE - marked atherosclerotic disease distal superficial femoral to posterior tibial arteries. CT Angiogram - occluded R popliteal/TP trunk/peroneal artery/amterior tibial artery; 90% occluded L SFA s/p Angiogram by Dr. Phillips showing SFA occlusion with Stent placement. Continue Aspirin/Plavix, Statin as per Vascular. Perfusion, warmth much improved RLE. Podiatry and Vascular follow-up as out-patient. 2. Increasing LE weakness, chronic CVA on CT CT Head - no acute findings, chronic ischemic changes MRI Brain - extensive chronic ischemic changes in white matter of both hemispheres with dilation of ventricles Evaluated by Neurology - to continue Aspirin/Plavix/Statin. Neuro follow up on DC. 3. DM 2 - resume Glipizide, Metformin on discharge. 4. HTN - on Norvasc, Lisinopril. Norvasc increased to 10mg. Metoprolol added to regimen for tighter BP control. Echo showing grade I diastolic dysfunction, 65-70% EF, with mild concentric LVH. PCP follow up for BP monitoring and uptitration of meds. 5. HLD - continue Lipitor. 6. Non-specific lucency R iliac bone reported on prelim CT report - discussed with radiology - appears to have widespread lucency along skeleton on imaging. for out-patient Hematology eval and work-up for possible Multiple Myeloma. 7. Mild diffuse pancreatic duct dilatation, 2.3 x 1.8cm liver lesion - out- patient non-emergent MRCP recommended and GI follow up. Medically optimized for discharge to SNF. Condition: Improved - Instructions Diet, Activity, Other Instructions: You were admitted for pain and weakness in your right leg and foot. Several imaging studies suggest that you did not have a stroke. You were placed on blood thinner medications for occluded arteries in your loweer extremities. You must continue these medications (Aspirin and Plavix) when you are home. You were evaluated for right leg vessel occlusion and we found that you had some cholesterol buildup in one of your vessels in your leg on imaging (duplex) and were seen by vascular surgery (Dr. Phillips) who performed an angiogram with insertion of a stent. You should follow up with Dr Phillips within a week of discharge as well as the foot doctor (Dr. Vallejo). You should follow up with your Primary doctor in 1 week as well. Medication Changes: 1. Continue taking Plavix 75mg once daily, this is a medication that thins your blood and will help prevent future strokes and blockage of the vessels in your legs. 2. START taking Aspirin 325mg once daily. 3. Your Norvasc dose was increased to 10mg daily for better control if your blood pressure. 4. START taking Metoprolol 12.5mg once daily for better control of your blood pressure. Follow up with the following physicians: 1. You stated that you do not have a primary care physician, you are being given a referral to [facility]. Please follow up within one week of discharge to discuss care of your medical conditions and to discuss the medications you were started on while in the hospital. 2. Recommended to follow up with Dr. Phillips, vascular surgery, within 1 week of discharge to discuss the procedure that was performed on your leg and for further care. 3. Recommended to follow up with Dr. Duke, Podiatry (foot doctor), within 1 week of discharge for further care of the wound on your foot. 4. Recommended to follow up with Dr. Shaw, Hematology/Oncology, within 1-2 weeks of discharge as your were found to have some abnormalities (multiple widespead lucencies on radiographic imaging of your bones) that necessitates hmatology evaluation for possible hematological abnormalities. 5. Recommended to follow up with Dr. Mendez, Gastroenterology, within 1-2 weeks of discharge as you were found to have a lesion in your liver on imaging and may need MRI imaging of your liver/pancreas/gallbladder. 6. Recommended to follow up with Dr. Engel, Neurology, as you were evaluated while you in the hospital for possible stroke but we did not find any evidence an acute stroke at this time. Activity and Diet 1. You are being discharged to a [facility] for continuing care and for rehab. Please take care to avoid trauma to your lower extremities. 2. Please monitor your diet as you need to intake foods with less salt, fat, and sugar and drink plenty of fluids. 3. You are continuing to take a blood thinning medication, if you notice signs of bleeding such as confusion, increased nosebleeds, blood in your urine, blood in your stool, or other concerning symptoms please contact your primary care doctor immediately or return to the emergency department immediately. Continue all your other medications as prescribed Please return to the ER if you have any signs or symptoms of chest pain, shortness of breath, uncontrollable fever, chills, nausea, vomiting, numbness, tingling, or weakness in any part of your body, changes in vision, or slurred speech. Please return to the ER if symptoms persist, worsen, or new symptoms arise. Referrals: [facility] [place] [Provider Group] Danielito Phillips MD [Non Staff, Medical] - 1 Week Ernesto Shaw MD [Staff Physician] - 1 Week (w/u for multiple myeloma given diffuse areas of lucency throughout spine and pelvis on CTA review when speaking with Dr. Robin. ) Tera Engel MD [Staff Physician] - Vasiliy Vallejo DPM [Staff Physician] - Adan Mendez MD [Staff Physician] - Disposition: [facility] - Home Medications Comprehensive Discharge Medication List: Ambulatory Orders Atorvastatin Ca [Lipitor] 40 mg PO HS 07/21/19 Glipizide [Glipizide ER] 10 mg PO DAILY 07/21/19 Lisinopril [Zestril] 40 mg PO DAILY 07/21/19 Metformin HCl [Glucophage] 1,000 mg PO BID 07/21/19 Latanoprost 0.005% Eye Drops [Xalatan 0.005% Eye Drops -] 1 drop OU HS 11/11/19 Multivitamin [Multiple Vitamins] 1 tab PO DAILY 11/11/19 Amlodipine Besylate [Norvasc -] 10 mg PO DAILY 30 Days #30 tablet 11/15/19 Aspirin [ASA -] 325 mg PO DAILY tablet 11/15/19 Clopidogrel Bisulfate [Plavix -] 75 mg PO DAILY tablet 11/15/19 Metoprolol Succinate [Toprol XL -] 12.5 mg PO DAILY #30 tab.sr.24h 11/15/19 This patient is new to me today: No Emergency Visit: Yes ED Registration Date: 11/09/19 Care time: The patient presented to the Emergency Department on the above date and was hospitalized for further evaluation of their emergent condition. Critical Care patient: No - Discharge Referral Referred to [facility] No
--- NOTE | 2019-11-20 11:29 | OP ---
DATE OF OPERATION: 11/14/2019 PREOPERATIVE DIAGNOSIS: Right 5th toe ulcer. POSTOPERATIVE DIAGNOSIS: Right 5th toe ulcer. PROCEDURE: Aortogram, right lower extremity angiogram, superficial femoral artery angioplasty with stent placement. Patient is a 69-year-old male who was admitted to the hospital and had a right 5th toe ulcer and pain there. He had a preoperative CTA showing that there was severe SFA stenosis in the [id number] SFA, and it was decided that he would need an angiogram. Patient was cleared from medical and cardiology standpoint and then was consented for the procedure, understanding all risks, benefits, and alternatives. Patient was then brought to the operating room and laid on the operating table in supine manner. The area of the right and left groins were prepped and draped in sterile surgical manner. We then injected 10 mL of lidocaine 1% over the left common femoral artery. We then took our micropuncture needle and punctured the left common femoral artery. Micropuncture wire was inserted. Micropuncture sheath was inserted. Traditional 5-[place] sheath was inserted. We then placed a 0.035 floppy guidewire up into the aorta, followed by an Omni Flush catheter. We then shot an aortogram via hand injection, showing that the aorta and the iliac arteries were without any disease. We then used a 0.035 floppy guidewire. We went up and over to the right common femoral artery. An Omni Flush catheter followed. We then shot an angiogram of the right lower extremity, showing that the common femoral artery, the profunda, and the proximal SFA were all patent. The [id number] SFA had an occlusion for about 4 cm. Distal SFA and popliteal artery were patent, and patient had 2-vessel runoff into the foot, but mainly the PT and the DP. At this point, we placed a 0.035 stiff guidewire to the SFA. We removed our Omni Flush catheter. A 6 x 45 crossover sheath was placed, and 5000 units of IV heparin were administered. We then placed a 0.035 stiff guidewire down the SFA, along with a Quick-Cross catheter. We were able to cross our occlusion. We then used a 6 x 4 ULTRAVERSE balloon and performed an angioplasty of the SFA. Completion angiogram now showed that the SFA was patent now, but still had significant disease. Angiogram below the knee showed that patient had collateral circulation going down into the foot in the form of PT as the main blood vessel, but patient did have severe stenosis and have severe disease of his TP trunk. The patient had mainly 1-vessel runoff, and DP was through collateral circulation from the PT. At this point, we placed a 6 x 4 LifeStent across our SFA occlusion, and that was ballooned in place using a 6 x 4 balloon. Completion angiogram now showed that the SFA was completely patent. Patient has severe disease below the knee, which is chronic, but has good runoff into the foot, that is brisk now due to the resolution of the occlusion. At this point, patient is non-ambulatory and does not walk, but now, has good perfusion to the foot. At this point, no more intervention is needed. We brought our sheath up and over. StarClose device was successfully deployed in the left common femoral artery. Pressure was held for 5 minutes. Afterward, there was no bleeding. Area was wet and dried, and Dermabond was placed. Patient tolerated the procedure with no complications. Patient transferred to PACU in stable condition. BRITTANY FLORES DO [id number]
== END 2019-11-16 15:43 | DRG 253 ==
LOC: JER 16:52 → JERBED 18:39 → OBSVTOIN 20:38 → J4S 11-12 00:29
PROVIDERS: ADMIT Internal Medicine
PROC: B40DYZZ Plain Radiography of Aorta and Bilateral Lower Extremity Arteries using Other Contrast (ICD-10-PCS; 2019-11-14)
PROC: 047K3D1 Dilation of Right Femoral Artery with Intraluminal Device, using Drug-Coated Balloon, Percutaneous Approach (ICD-10-PCS; principal; 2019-11-14 14:30)
DX: E11.51 Type 2 diabetes mellitus with diabetic peripheral angiopathy without gangrene (principal); I69.354 Hemiplegia and hemiparesis following cerebral infarction affecting left non-dominant side; E11.621 Type 2 diabetes mellitus with foot ulcer; G45.9 Transient cerebral ischemic attack, unspecified; I10 Essential (primary) hypertension; E78.5 Hyperlipidemia, unspecified; I69.993 Ataxia following unspecified cerebrovascular disease; I73.9 Peripheral vascular disease, unspecified
CPT/HCPCS: 36415; 70450-TC; 70551-TC; 73610-TC-RT-FY; 73630-TC-RT-FY; 75635-TC; 76000-TC-FY; 80053; 80061; 81003; 82607; 82962; 83036; 83090; 83721; 83735; 84100; 84436; 84439; 84443; 84481; 85025; 85651; 86850; 86900; 86901; 93005; 93010; 93306-TC; 93880-TC; 93926-TC; 94760; 97161-GP; 99285-25; G0378; J1644; Q9967

== ENCOUNTER 2021-01-28 14:46 | Inpatient (IN) | payer OTHER ==
[2021-01-28] MEDS ORDERED: CEPHALEXIN MONOHYDRATE 500 MG CAPSULE (UD) PO ONE (16:48)
[2021-01-28 17:54] LABS: BASO % 0.6 % (0-2.0); EOS % 0.2 % (0-4.5); HEMATOCRIT 36.7 % (35.4-49); HEMOGLOBIN 11.7 GM/dL (11.7-16.9); LYMPH % 18.7 % (8-40); MCH 28.2 pg (25.7-33.7); MCHC 31.7 g/dl (32.0-35.9); MEAN CELL VOLUME 88.8 fl (80-96); MEAN PLT VOLUME 8.3 fl (7.5-11.1); MONO % 7.2 % (3.8-10.2); NEUT % 73.3 % (42.8-82.8); PLATELET COUNT 326 K/MM3 (134-434); RBC 4.14 M/mm3 (4.00-5.60); RDW 14.2 % (11.9-15.9); WHITE BLOOD COUNT 7.7 K/mm3 (4.0-10.0)
[2021-01-28 18:13] LABS: CHLORIDE 94 mmol/L (98-107); POTASSIUM 4.6 mmol/L (3.5-5.1); SODIUM 130 mmol/L (136-145)
[2021-01-28 18:14] LABS: ALBUMIN 2.8 g/dl (3.4-5.0); CALCIUM 9.2 mg/dL (8.5-10.1); MAGNESIUM 2.7 mg/dL (1.8-2.4)
[2021-01-28 18:15] LABS: ANION GAP 8 MMOL/L (8-16); BLOOD UREA NITROGEN 18.4 mg/dL (7-18); CO2 29 mmol/L (21-32)
[2021-01-28 18:17] LABS: SGPT/ALT 19 U/L (13-61)
[2021-01-28 18:18] LABS: CREATININE 1.1 mg/dL (0.55-1.3); PHOSPHOROUS 3.5 mg/dL (2.5-4.9); SGOT/AST 13 U/L (15-37)
[2021-01-28 18:19] LABS: BILIRUBIN,TOTAL 0.3 mg/dL (0.2-1); TOT PROT 7.9 g/dl (6.4-8.2)
[2021-01-28 18:20] LABS: ALK PHOS 141 U/L (45-117)
[2021-01-28 18:26] LABS: GLUCOSE,RANDOM 587 mg/dL (74-106)
[2021-01-28] MEDS ORDERED: SODIUM CHLORIDE 2,000 ML IV STA (18:33)
[2021-01-28 18:57] LABS: EPI CELLS 2 /uL (0-25.1); HYALINE CASTS 0 /uL (0-3.1); URINE APPEARANCE CLOUDY; URINE BACTERIA 4252 /uL (0-1359); URINE BILIRUBIN NEGATIVE (NEGATIVE); URINE COLOR YELLOW; URINE GLUCOSE (UA) 3+ (NEGATIVE); URINE KETONE 1+ (NEGATIVE); URINE LEUK ESTERASE 2+ (NEGATIVE); URINE NITRITE NEGATIVE (NEGATIVE); URINE PROTEIN NEGATIVE (NEGATIVE); URINE UROBILINOGEN 0.2 mg/dL (0.2-1.0); URINE WBC 1811 /uL (0-25.8)
[2021-01-28] MEDS ORDERED: CEPHALEXIN MONOHYDRATE 500 MG CAPSULE (UD) ONE (19:17)
[2021-01-28] MEDS ORDERED: INSULIN REGULAR HUMAN 100 UNITS/ML *VIAL IVPUSH ONE (20:14)
[2021-01-28] MEDS ORDERED: CEFTRIAXONE 1 GM in DEXTROSE 5%-WATER - 50 ML IVPB ONE (20:38)
[2021-01-28] MEDS ORDERED: INSULIN REGULAR HUMAN 100 UNITS/ML *VIAL ONE (21:25)
[2021-01-28] MEDS ORDERED: CEFTRIAXONE 1 GM/50 ML BAG ONE (21:28)
[2021-01-28] MEDS ORDERED: MAGNESIUM SULF 50% (8.12 MEQ/2 ML-1 GM VIAL) IVPB ONE (22:06)
[2021-01-28 22:52] LABS: URINE RBC 98 /uL (0-23.9); YEAST PRESENT (NEGATIVE)
[2021-01-28] MEDS ORDERED: MAGNESIUM SULFATE IN WATER 2 GM/50 ML IVPB IVPB ONE (23:16)
[2021-01-29 01:08] LABS: POTASSIUM 4.2 mmol/L (3.5-5.1)
[2021-01-29 01:09] LABS: CALCIUM 8.9 mg/dL (8.5-10.1)
[2021-01-29 01:10] LABS: BLOOD UREA NITROGEN 14.2 mg/dL (7-18)
[2021-01-29 01:13] LABS: CREATININE 0.8 mg/dL (0.55-1.3)
[2021-01-29] MEDS ORDERED: SODIUM CHLORIDE 1,000 ML IV SCH (01:45)
[2021-01-29 02:06] LABS: HIV INTERPRETATION NEGATIVE (NEGATIVE)
[2021-01-29] MEDS: NYSTATIN 100,000 UNIT/GM TOPICAL CREAM 15 GM TUBE TP SCH ×3 (02:45→22:52)
[2021-01-29 07:20] LABS: BASO % 0.7 % (0-2.0); EOS % 0.4 % (0-4.5); HEMATOCRIT 30.9 % (35.4-49); HEMOGLOBIN 10.1 GM/dL (11.7-16.9); LYMPH % 31.7 % (8-40); MCH 28.6 pg (25.7-33.7); MCHC 32.6 g/dl (32.0-35.9); MEAN CELL VOLUME 87.8 fl (80-96); MEAN PLT VOLUME 8.4 fl (7.5-11.1); MONO % 7.6 % (3.8-10.2); NEUT % 59.6 % (42.8-82.8); PLATELET COUNT 320 K/MM3 (134-434); RBC 3.51 M/mm3 (4.00-5.60); RDW 13.9 % (11.9-15.9); WHITE BLOOD COUNT 7.2 K/mm3 (4.0-10.0)
[2021-01-29 07:26] LABS: POTASSIUM 4.7 mmol/L (3.5-5.1)
[2021-01-29 07:28] LABS: ALBUMIN 2.4 g/dl (3.4-5.0); CALCIUM 8.9 mg/dL (8.5-10.1)
[2021-01-29 07:29] LABS: BLOOD UREA NITROGEN 16.8 mg/dL (7-18); MAGNESIUM 2.9 mg/dL (1.8-2.4)
[2021-01-29 07:32] LABS: BILIRUBIN,TOTAL 0.3 mg/dL (0.2-1); PHOSPHOROUS 3.4 mg/dL (2.5-4.9)
[2021-01-29 07:33] LABS: TOT PROT 6.9 g/dl (6.4-8.2)
[2021-01-29] MEDS: INSULIN SLIDING SCALE (NOVOLOG) 1 VIAL SQ SCH ×4 (07:55→22:38)
[2021-01-29] MEDS ORDERED: INSULIN (LEVEMIR) 100 UNITS/ML UNITS SQ ONE (08:48)
[2021-01-29] MEDS: INSULIN (LEVEMIR) 100 UNITS/ML UNITS SQ SCH ×2 (08:53→22:38)
[2021-01-29] MEDS ORDERED: ENOXAPARIN NA (PORCINE) 40 MG/0.4 ML DISP.SYRIN SQ ONE (09:57)
[2021-01-29] MEDS: CEFTRIAXONE 1 GM in DEXTROSE 5%-WATER - 50 ML IVPB SCH (10:41)
[2021-01-29] MEDS: ENOXAPARIN NA (PORCINE) 40 MG/0.4 ML DISP.SYRIN SQ SCH (10:41)
[2021-01-29] MEDS ORDERED: PT OWN MED DRAWER 7, Y5N ONE (14:20)
[2021-01-29] MEDS: LISINOPRIL 20 MG TABLET PO SCH (14:23)
[2021-01-29] MEDS: COLLAGENASE CLOSTRIDIUM HIST. 30 GRAMS TUBE TP SCH (14:24)
[2021-01-29] MEDS: FLUCONAZOLE 100 MG TABLET (UD) PO SCH (17:33)
[2021-01-29] MEDS: ATORVASTATIN CA 40 MG TABLET (FP) PO SCH (22:40)
[2021-01-30] MEDS: INSULIN SLIDING SCALE (NOVOLOG) 1 VIAL SQ SCH ×4 (06:24→22:05)
[2021-01-30] MEDS: INSULIN (LEVEMIR) 100 UNITS/ML UNITS SQ SCH ×2 (06:25→21:56)
[2021-01-30] MEDS ORDERED: cefTRIAXone SODIUM 1 GM VIAL ONE (10:21)
[2021-01-30] MEDS ORDERED: DEXTROSE 5%-WATER - 50 ML IVPB ONE (10:21)
[2021-01-30] MEDS: CEFTRIAXONE 1 GM in DEXTROSE 5%-WATER - 50 ML IVPB SCH (10:56)
[2021-01-30] MEDS: LISINOPRIL 20 MG TABLET PO SCH (10:57)
[2021-01-30] MEDS: FLUCONAZOLE 100 MG TABLET (UD) PO SCH (10:57)
[2021-01-30] MEDS: ENOXAPARIN NA (PORCINE) 40 MG/0.4 ML DISP.SYRIN SQ SCH (10:57)
[2021-01-30] MEDS: COLLAGENASE CLOSTRIDIUM HIST. 30 GRAMS TUBE TP SCH (10:58)
[2021-01-30] MEDS: NYSTATIN 100,000 UNIT/GM TOPICAL CREAM 15 GM TUBE TP SCH ×2 (10:59→22:08)
[2021-01-30] MEDS ORDERED: PT OWN MED DRAWER 7, Y5N ONE (11:34)
[2021-01-30] MEDS: Insulin (LOG) Aspart 100 UNITS/ML VIAL SQ SCH (16:46)
[2021-01-30 21:10] VITALS: BMI 20.6
[2021-01-30] MEDS: ATORVASTATIN CA 40 MG TABLET (FP) PO SCH (21:56)
[2021-01-31] MEDS: INSULIN (LEVEMIR) 100 UNITS/ML UNITS SQ SCH ×2 (06:12→21:25)
[2021-01-31] MEDS: Insulin (LOG) Aspart 100 UNITS/ML VIAL SQ SCH ×3 (06:13→16:56)
[2021-01-31] MEDS: INSULIN SLIDING SCALE (NOVOLOG) 1 VIAL SQ SCH ×4 (06:14→21:32)
[2021-01-31] MEDS ORDERED: INSULIN (NOVOLOG) ASPART 100 UNITS/ML 10ML VIAL ONE ×2 (07:42→21:02)
[2021-01-31] MEDS ORDERED: cefTRIAXone SODIUM 1 GM VIAL ONE (09:24)
[2021-01-31] MEDS ORDERED: DEXTROSE 5%-WATER - 50 ML IVPB ONE (09:24)
[2021-01-31 09:25] LABS: BASO % 0.6 % (0-2.0); EOS % 0.4 % (0-4.5); HEMATOCRIT 30.9 % (35.4-49); HEMOGLOBIN 10.1 GM/dL (11.7-16.9); LYMPH % 52.5 % (8-40); MCH 28.6 pg (25.7-33.7); MCHC 32.7 g/dl (32.0-35.9); MEAN CELL VOLUME 87.6 fl (80-96); MEAN PLT VOLUME 8.1 fl (7.5-11.1); MONO % 9.6 % (3.8-10.2); NEUT % 36.9 % (42.8-82.8); PLATELET COUNT 306 K/MM3 (134-434); RBC 3.53 M/mm3 (4.00-5.60); RDW 14.1 % (11.9-15.9)
[2021-01-31 09:26] LABS: POTASSIUM 3.8 mmol/L (3.5-5.1)
[2021-01-31] MEDS: NYSTATIN 100,000 UNIT/GM TOPICAL CREAM 15 GM TUBE TP SCH ×2 (09:29→21:33)
[2021-01-31] MEDS: ENOXAPARIN NA (PORCINE) 40 MG/0.4 ML DISP.SYRIN SQ SCH (09:29)
[2021-01-31] MEDS: LISINOPRIL 20 MG TABLET PO SCH (09:29)
[2021-01-31 09:30] LABS: BLOOD UREA NITROGEN 22.4 mg/dL (7-18)
[2021-01-31] MEDS: CEFTRIAXONE 1 GM in DEXTROSE 5%-WATER - 50 ML IVPB SCH (09:30)
[2021-01-31] MEDS: FLUCONAZOLE 100 MG TABLET (UD) PO SCH (09:30)
[2021-01-31 09:33] LABS: CREATININE 0.8 mg/dL (0.55-1.3)
[2021-01-31] MEDS: COLLAGENASE CLOSTRIDIUM HIST. 30 GRAMS TUBE TP SCH (10:47)
[2021-01-31] MEDS: ATORVASTATIN CA 40 MG TABLET (FP) PO SCH (21:26)
[2021-02-01] MEDS: Insulin (LOG) Aspart 100 UNITS/ML VIAL SQ SCH ×3 (06:20→16:40)
[2021-02-01] MEDS: INSULIN (LEVEMIR) 100 UNITS/ML UNITS SQ SCH ×2 (06:20→21:29)
[2021-02-01] MEDS: INSULIN SLIDING SCALE (NOVOLOG) 1 VIAL SQ SCH ×4 (06:21→21:29)
[2021-02-01 08:57] LABS: BASO % 0.7 % (0-2.0); EOS % 0.5 % (0-4.5); HEMATOCRIT 28.8 % (35.4-49); HEMOGLOBIN 9.4 GM/dL (11.7-16.9); LYMPH % 47.2 % (8-40); MCH 28.8 pg (25.7-33.7); MCHC 32.6 g/dl (32.0-35.9); MEAN CELL VOLUME 88.2 fl (80-96); MEAN PLT VOLUME 7.9 fl (7.5-11.1); MONO % 9.1 % (3.8-10.2); NEUT % 42.5 % (42.8-82.8); PLATELET COUNT 286 K/MM3 (134-434); RBC 3.26 M/mm3 (4.00-5.60); RDW 13.8 % (11.9-15.9); WHITE BLOOD COUNT 5.5 K/mm3 (4.0-10.0)
[2021-02-01 09:17] LABS: POTASSIUM 3.8 mmol/L (3.5-5.1)
[2021-02-01 09:32] LABS: CALCIUM 8.9 mg/dL (8.5-10.1)
[2021-02-01 09:33] LABS: ALBUMIN 2.3 g/dl (3.4-5.0)
[2021-02-01 09:35] LABS: CREATININE 0.7 mg/dL (0.55-1.3)
[2021-02-01 09:36] LABS: BILIRUBIN,TOTAL 0.3 mg/dL (0.2-1)
[2021-02-01 09:40] LABS: TOT PROT 6.3 g/dl (6.4-8.2)
[2021-02-01] MEDS ORDERED: PT OWN MED DRAWER 7, Y5N ONE (10:29)
[2021-02-01] MEDS: LISINOPRIL 20 MG TABLET PO SCH (10:30)
[2021-02-01] MEDS: FLUCONAZOLE 100 MG TABLET (UD) PO SCH (10:30)
[2021-02-01] MEDS: ENOXAPARIN NA (PORCINE) 40 MG/0.4 ML DISP.SYRIN SQ SCH (10:30)
[2021-02-01] MEDS: NYSTATIN 100,000 UNIT/GM TOPICAL CREAM 15 GM TUBE TP SCH ×2 (10:31→21:30)
[2021-02-01] MEDS: COLLAGENASE CLOSTRIDIUM HIST. 30 GRAMS TUBE TP SCH (10:31)
[2021-02-01] MEDS ORDERED: INSULIN (NOVOLOG) ASPART 100 UNITS/ML 10ML VIAL ONE ×2 (11:48→21:26)
[2021-02-01] MEDS: ATORVASTATIN CA 40 MG TABLET (FP) PO SCH (21:29)
[2021-02-01] MEDS: CEPHALEXIN MONOHYDRATE 500 MG CAPSULE (UD) PO SCH (21:29)
[2021-02-02] MEDS: Insulin (LOG) Aspart 100 UNITS/ML VIAL SQ SCH ×3 (06:36→16:42)
[2021-02-02] MEDS: INSULIN (LEVEMIR) 100 UNITS/ML UNITS SQ SCH ×3 (06:36→21:37)
[2021-02-02] MEDS: INSULIN SLIDING SCALE (NOVOLOG) 1 VIAL SQ SCH ×4 (06:36→21:32)
[2021-02-02 08:46] LABS: BASO % 0.6 % (0-2.0); EOS % 0.6 % (0-4.5); HEMATOCRIT 28.9 % (35.4-49); HEMOGLOBIN 9.5 GM/dL (11.7-16.9); LYMPH % 36.9 % (8-40); MCH 28.7 pg (25.7-33.7); MEAN CELL VOLUME 86.7 fl (80-96); MEAN PLT VOLUME 7.8 fl (7.5-11.1); MONO % 8.4 % (3.8-10.2); NEUT % 53.5 % (42.8-82.8); PLATELET COUNT 315 K/MM3 (134-434); RBC 3.33 M/mm3 (4.00-5.60); RDW 13.9 % (11.9-15.9); WHITE BLOOD COUNT 7.1 K/mm3 (4.0-10.0)
[2021-02-02 09:21] LABS: ALBUMIN 2.4 g/dl (3.4-5.0); BLOOD UREA NITROGEN 17.7 mg/dL (7-18); CALCIUM 9.1 mg/dL (8.5-10.1)
[2021-02-02 09:24] LABS: CREATININE 0.7 mg/dL (0.55-1.3)
[2021-02-02 09:26] LABS: BILIRUBIN,TOTAL 0.3 mg/dL (0.2-1); TOT PROT 6.6 g/dl (6.4-8.2)
[2021-02-02] MEDS ORDERED: PT OWN MED DRAWER 7, Y5N ONE (09:58)
[2021-02-02] MEDS: FLUCONAZOLE 100 MG TABLET (UD) PO SCH (10:02)
[2021-02-02] MEDS: LISINOPRIL 20 MG TABLET PO SCH (10:02)
[2021-02-02] MEDS: CEPHALEXIN MONOHYDRATE 500 MG CAPSULE (UD) PO SCH ×2 (10:02→21:31)
[2021-02-02] MEDS: NYSTATIN 100,000 UNIT/GM TOPICAL CREAM 15 GM TUBE TP SCH ×2 (10:03→21:32)
[2021-02-02] MEDS: ENOXAPARIN NA (PORCINE) 40 MG/0.4 ML DISP.SYRIN SQ SCH (10:03)
[2021-02-02] MEDS ORDERED: INSULIN (NOVOLOG) ASPART 100 UNITS/ML 10ML VIAL ONE ×2 (11:27→21:27)
[2021-02-02] MEDS: COLLAGENASE CLOSTRIDIUM HIST. 30 GRAMS TUBE TP SCH (16:42)
[2021-02-02] MEDS: ATORVASTATIN CA 40 MG TABLET (FP) PO SCH (21:31)
[2021-02-03 02:30] VITALS: BP 138/68; PULSE 74; TEMP 98.7
[2021-02-03] MEDS: INSULIN SLIDING SCALE (NOVOLOG) 1 VIAL SQ SCH ×2 (06:26→11:28)
[2021-02-03] MEDS: Insulin (LOG) Aspart 100 UNITS/ML VIAL SQ SCH ×2 (06:27→11:29)
[2021-02-03] MEDS: INSULIN (LEVEMIR) 100 UNITS/ML UNITS SQ SCH (06:27)
[2021-02-03 08:30] LABS: BASO % 0.6 % (0-2.0); HEMATOCRIT 27.2 % (35.4-49); LYMPH % 47.2 % (8-40); MCH 28.8 pg (25.7-33.7); MCHC 32.9 g/dl (32.0-35.9); MEAN CELL VOLUME 87.6 fl (80-96); MEAN PLT VOLUME 8.1 fl (7.5-11.1); NEUT % 42.2 % (42.8-82.8); PLATELET COUNT 308 K/MM3 (134-434); RBC 3.11 M/mm3 (4.00-5.60); RDW 14.3 % (11.9-15.9); WHITE BLOOD COUNT 5.6 K/mm3 (4.0-10.0)
[2021-02-03 08:40] LABS: POTASSIUM 4.1 mmol/L (3.5-5.1)
[2021-02-03 08:42] LABS: CALCIUM 8.7 mg/dL (8.5-10.1)
[2021-02-03 08:43] LABS: ALBUMIN 2.2 g/dl (3.4-5.0); BLOOD UREA NITROGEN 22.5 mg/dL (7-18)
[2021-02-03 08:46] LABS: CREATININE 0.7 mg/dL (0.55-1.3)
[2021-02-03 08:47] LABS: BILIRUBIN,TOTAL 0.2 mg/dL (0.2-1)
[2021-02-03 08:48] LABS: TOT PROT 6.3 g/dl (6.4-8.2)
[2021-02-03] MEDS ORDERED: PT OWN MED DRAWER 7, Y5N ONE (10:16)
[2021-02-03] MEDS: NYSTATIN 100,000 UNIT/GM TOPICAL CREAM 15 GM TUBE TP SCH (10:26)
[2021-02-03] MEDS: CEPHALEXIN MONOHYDRATE 500 MG CAPSULE (UD) PO SCH (10:26)
[2021-02-03] MEDS: LISINOPRIL 20 MG TABLET PO SCH (10:26)
[2021-02-03] MEDS: FLUCONAZOLE 100 MG TABLET (UD) PO SCH (10:26)
[2021-02-03] MEDS: ENOXAPARIN NA (PORCINE) 40 MG/0.4 ML DISP.SYRIN SQ SCH (10:26)
[2021-02-03] MEDS: COLLAGENASE CLOSTRIDIUM HIST. 30 GRAMS TUBE TP SCH (10:27)
[2021-02-03] MEDS ORDERED: INSULIN (NOVOLOG) ASPART 100 UNITS/ML 10ML VIAL ONE ×2 (11:24→11:36)
== END 2021-02-03 15:54 | DRG 727 ==
LOC: JER 14:46 → JERBED 22:25 → J6S 01-29 13:15
PROVIDERS: ADMIT Hospitalist
DX: N47.6 Balanoposthitis (principal); L89.313 Pressure ulcer of right buttock, stage 3; L89.323 Pressure ulcer of left buttock, stage 3; I69.354 Hemiplegia and hemiparesis following cerebral infarction affecting left non-dominant side; B49 Unspecified mycosis; N39.0 Urinary tract infection, site not specified; E11.65 Type 2 diabetes mellitus with hyperglycemia; N47.1 Phimosis; I10 Essential (primary) hypertension; E78.5 Hyperlipidemia, unspecified; E83.42 Hypomagnesemia
CPT/HCPCS: 36415; 80048; 80053; 81003; 82962; 83036; 83735; 84100; 84156; 85025; 86780; 87040; 87070; 87077; 87086; 87186; 87205; 87389; 87491; 87591; 87661; 93005; 93010; 97162-GP; 99285-25; C9803; U0003; U0005

== ENCOUNTER 2021-09-27 14:32 | Inpatient (IN) | payer OTHER ==
[2021-09-27 14:49] VITALS: BMI 16.0
[2021-09-27] MEDS ORDERED: SILVER SULFADIAZINE 1% TOP CREAM 50 GM JAR TP ONE (15:45)
[2021-09-27] MEDS ORDERED: BACITRACIN 15 GM TUBE TOPICAL OINTMENT ONE (15:48)
[2021-09-27 17:32] LABS: BASO % 0.5 % (0-2.0); EOS % 1.5 % (0-4.5); HEMATOCRIT 35.9 % (35.4-49); HEMOGLOBIN 11.4 GM/dL (11.7-16.9); LYMPH % 29.7 % (8-40); MCH 26.4 pg (25.7-33.7); MCHC 31.7 g/dl (32.0-35.9); MEAN CELL VOLUME 83.1 fl (80-96); MEAN PLT VOLUME 8.3 fl (7.5-11.1); NEUT % 62.3 % (42.8-82.8); PLATELET COUNT 326 10^3/uL (134-434); RBC 4.32 M/mm3 (4.00-5.60); RDW 15.7 % (11.9-15.9); WHITE BLOOD COUNT 7.6 K/mm3 (4.0-10.0)
[2021-09-27 17:48] LABS: CALCIUM 9.4 mg/dL (8.5-10.1)
[2021-09-27 17:49] LABS: ALBUMIN 2.9 g/dl (3.4-5.0); BLOOD UREA NITROGEN 18.5 mg/dL (7-18)
[2021-09-27 17:52] LABS: CREATININE 0.9 mg/dL (0.55-1.3)
[2021-09-27 17:54] LABS: BILIRUBIN,TOTAL 0.2 mg/dL (0.2-1); TOT PROT 8.3 g/dl (6.4-8.2)
[2021-09-27 18:21] LABS: LACTIC ACID 3.3 mmol/L (0.4-2.0)
[2021-09-27] MEDS ORDERED: LACTATED RINGERS SOLUTION 1000 ML INFUS.BAG IV ONE (18:22)
[2021-09-27 19:15] LABS: EPI CELLS 8 /uL (0-25.1); HYALINE CASTS 1 /uL (0-3.1); PH,URINE 7.5 (5.0-8.0); URINE APPEARANCE CLOUDY; URINE BACTERIA >9,000 /uL (0-1359); URINE BILIRUBIN NEGATIVE (NEGATIVE); URINE COLOR YELLOW; URINE GLUCOSE (UA) 3+ (NEGATIVE); URINE KETONE NEGATIVE (NEGATIVE); URINE LEUK ESTERASE 2+ (NEGATIVE); URINE NITRITE NEGATIVE (NEGATIVE); URINE PROTEIN TRACE (NEGATIVE); URINE UROBILINOGEN 0.2 mg/dL (0.2-1.0); URINE WBC 615 /uL (0-25.8)
[2021-09-27] MEDS ORDERED: CEFTRIAXONE 1 GM in DEXTROSE 5%-WATER - 100 ML IVPB ONE (19:27)
[2021-09-27 20:05] LABS: URINE RBC 49.8 /uL (0-23.9); YEAST NEGATIVE (NEGATIVE)
[2021-09-27] MEDS ORDERED: CEFTRIAXONE 1 GM/50 ML BAG ONE (20:19)
[2021-09-27] MEDS ORDERED: ACETAMINOPHEN 325 MG TABLET (FP) PO PRN (20:38)
[2021-09-27] MEDS ORDERED: ENOXAPARIN NA (PORCINE) 40 MG/0.4 ML DISP.SYRIN SQ ONE (21:43)
[2021-09-27] MEDS ORDERED: BACITRACIN 0.9 GM PACKET ONE (21:43)
[2021-09-27] MEDS ORDERED: ATORVASTATIN CA 40 MG TABLET (FP) ONE (21:43)
[2021-09-27] MEDS: ENOXAPARIN NA (PORCINE) 40 MG/0.4 ML DISP.SYRIN SQ SCH (21:47)
[2021-09-27] MEDS: ATORVASTATIN CA 40 MG TABLET (FP) PO SCH (21:47)
[2021-09-27] MEDS: BACITRACIN 15 GM TUBE TOPICAL OINTMENT TP SCH (22:17)
[2021-09-27] MEDS: CLOTRIMAZOLE 1% CREAM TP SCH (22:17)
[2021-09-27] MEDS: INSULIN SLIDING SCALE (NOVOLOG) 1 VIAL SQ SCH (22:21)
[2021-09-28 06:12] LABS: BASO % 1.7 % (0-2.0); EOS % 1.3 % (0-4.5); HEMATOCRIT 33.9 % (35.4-49); LYMPH % 43.4 % (8-40); MCH 27.2 pg (25.7-33.7); MCHC 32.4 g/dl (32.0-35.9); MEAN CELL VOLUME 83.9 fl (80-96); MONO % 5.8 % (3.8-10.2); NEUT % 47.8 % (42.8-82.8); PLATELET COUNT 298 10^3/uL (134-434); RBC 4.04 M/mm3 (4.00-5.60); RDW 16.1 % (11.9-15.9); WHITE BLOOD COUNT 6.6 K/mm3 (4.0-10.0)
[2021-09-28 06:33] LABS: CALCIUM 9.1 mg/dL (8.5-10.1)
[2021-09-28 06:34] LABS: ALBUMIN 2.6 g/dl (3.4-5.0); BLOOD UREA NITROGEN 14.6 mg/dL (7-18); MAGNESIUM 2.1 mg/dL (1.8-2.4)
[2021-09-28 06:37] LABS: CREATININE 0.6 mg/dL (0.55-1.3); PHOSPHOROUS 3.2 mg/dL (2.5-4.9)
[2021-09-28 06:38] LABS: TOT PROT 7.7 g/dl (6.4-8.2)
[2021-09-28 06:39] LABS: BILIRUBIN,TOTAL 0.3 mg/dL (0.2-1)
[2021-09-28] MEDS: INSULIN SLIDING SCALE (NOVOLOG) 1 VIAL SQ SCH ×4 (07:54→22:06)
[2021-09-28] MEDS ORDERED: ACETAMINOPHEN 325 MG TABLET (FP) ONE (08:41)
[2021-09-28] MEDS ORDERED: amLODIPine BESYLATE 5 MG TABLET (FP) ONE (08:41)
[2021-09-28] MEDS ORDERED: SILVER SULFADIAZINE 1% TOP CREAM 50 GM JAR TP ONE (08:41)
[2021-09-28] MEDS ORDERED: BACITRACIN 0.9 GM PACKET ONE (08:42)
[2021-09-28] MEDS ORDERED: ATORVASTATIN CA 40 MG TABLET (FP) ONE (08:42)
[2021-09-28] MEDS ORDERED: LISINOPRIL 20 MG TABLET ONE (08:42)
[2021-09-28] MEDS ORDERED: ENOXAPARIN NA (PORCINE) 40 MG/0.4 ML DISP.SYRIN SQ ONE (08:43)
[2021-09-28] MEDS ORDERED: PT OWN MED DRAWER 7, Y5N ONE (08:43)
[2021-09-28] MEDS ORDERED: CEFTRIAXONE 1 GM/50 ML BAG ONE (08:43)
[2021-09-28] MEDS: ENOXAPARIN NA (PORCINE) 40 MG/0.4 ML DISP.SYRIN SQ SCH (09:48)
[2021-09-28] MEDS: CLOTRIMAZOLE 1% CREAM TP SCH (09:48)
[2021-09-28] MEDS: BACITRACIN 15 GM TUBE TOPICAL OINTMENT TP SCH (09:48)
[2021-09-28] MEDS: CEFTRIAXONE 1 GM in DEXTROSE 5%-WATER - 50 ML IVPB SCH (09:48)
[2021-09-28] MEDS: amLODIPine BESYLATE 10 MG TABLET (FP) PO SCH (09:48)
[2021-09-28] MEDS ORDERED: LISINOPRIL 5 MG TABLET PO SCH (10:00)
[2021-09-28] MEDS ORDERED: SILVER SULFADIAZINE 1% TOP CREAM 50 GM JAR TP SCH (10:00)
[2021-09-28] MEDS ORDERED: CLOTRIMAZOLE 1% CREAM TP SCH (14:00)
[2021-09-28] MEDS: COD LIVER OIL/ZINC OXIDE PASTE 56 GM TUBE TP PRN (16:44)
[2021-09-28] MEDS ORDERED: FLUCONAZOLE 100 MG TABLET (UD) ONE (17:30)
[2021-09-28] MEDS: FLUCONAZOLE 100 MG TABLET (UD) PO SCH (17:41)
[2021-09-28] MEDS: ATORVASTATIN CA 40 MG TABLET (FP) PO SCH (21:47)
[2021-09-28] MEDS: TRIAMCINOLONE ACET 0.5% CREAM 15 GM TUBE TP SCH (21:48)
[2021-09-28] MEDS ORDERED: INSULIN SLIDING SCALE (NOVOLOG) 1 VIAL SQ ONE (21:58)
[2021-09-28] MEDS ORDERED: TRIAMCINOLONE ACET 0.5% CREAM 15 GM TUBE TP SCH (22:00)
[2021-09-29] MEDS: INSULIN SLIDING SCALE (NOVOLOG) 1 VIAL SQ SCH ×4 (06:45→22:20)
[2021-09-29] MEDS ORDERED: cefTRIAXone SODIUM 1 GM VIAL ONE (08:50)
[2021-09-29] MEDS ORDERED: PT OWN MED DRAWER 7, Y5N ONE ×5 (08:50→15:27)
[2021-09-29] MEDS ORDERED: DEXTROSE 5%-WATER - 50 ML IVPB ONE (08:50)
[2021-09-29] MEDS ORDERED: INSULIN SLIDING SCALE (NOVOLOG) 1 VIAL SQ ONE (10:35)
[2021-09-29] MEDS: CEFTRIAXONE 1 GM in DEXTROSE 5%-WATER - 50 ML IVPB SCH (10:37)
[2021-09-29] MEDS: LISINOPRIL 20 MG TABLET PO SCH (10:38)
[2021-09-29] MEDS: amLODIPine BESYLATE 10 MG TABLET (FP) PO SCH (10:38)
[2021-09-29] MEDS: ENOXAPARIN NA (PORCINE) 40 MG/0.4 ML DISP.SYRIN SQ SCH (10:38)
[2021-09-29] MEDS: TRIAMCINOLONE ACET 0.5% CREAM 15 GM TUBE TP SCH ×2 (10:40→22:20)
[2021-09-29] MEDS: FLUCONAZOLE 100 MG TABLET (UD) PO SCH (10:40)
[2021-09-29 13:44] LABS: BASO % 0.6 % (0-2.0); EOS % 1.3 % (0-4.5); HEMATOCRIT 33.7 % (35.4-49); HEMOGLOBIN 10.7 GM/dL (11.7-16.9); LYMPH % 36.6 % (8-40); MCH 26.3 pg (25.7-33.7); MCHC 31.9 g/dl (32.0-35.9); MEAN CELL VOLUME 82.5 fl (80-96); MEAN PLT VOLUME 7.9 fl (7.5-11.1); MONO % 6.4 % (3.8-10.2); NEUT % 55.1 % (42.8-82.8); PLATELET COUNT 310 10^3/uL (134-434); RBC 4.08 M/mm3 (4.00-5.60); RDW 15.7 % (11.9-15.9); WHITE BLOOD COUNT 5.7 K/mm3 (4.0-10.0)
[2021-09-29 14:29] LABS: BLOOD UREA NITROGEN 15.8 mg/dL (7-18); CALCIUM 8.8 mg/dL (8.5-10.1)
[2021-09-29 14:30] LABS: ALBUMIN 2.5 g/dl (3.4-5.0); MAGNESIUM 2.3 mg/dL (1.8-2.4)
[2021-09-29 14:33] LABS: CREATININE 0.7 mg/dL (0.55-1.3)
[2021-09-29 14:34] LABS: BILIRUBIN,TOTAL 0.2 mg/dL (0.2-1); TOT PROT 7.4 g/dl (6.4-8.2)
[2021-09-29] MEDS ORDERED: OXYBUTYNIN CHLORIDE 5 MG TABLET PO ONE (14:58)
[2021-09-29] MEDS: COD LIVER OIL/ZINC OXIDE PASTE 56 GM TUBE TP PRN (17:13)
[2021-09-29] MEDS: AMINO ACIDS/PROTEIN HYDROLYS 30 ML LIQUID.PKT PO SCH (17:15)
[2021-09-29] MEDS: OXYBUTYNIN CHLORIDE 5 MG TABLET PO SCH (22:20)
[2021-09-29] MEDS: ATORVASTATIN CA 40 MG TABLET (FP) PO SCH (22:20)
[2021-09-30] MEDS: INSULIN SLIDING SCALE (NOVOLOG) 1 VIAL SQ SCH ×4 (06:48→23:26)
[2021-09-30 10:00] LABS: BASO % 1.1 % (0-2.0); EOS % 1.4 % (0-4.5); HEMATOCRIT 32.8 % (35.4-49); HEMOGLOBIN 10.6 GM/dL (11.7-16.9); LYMPH % 33.2 % (8-40); MCH 26.5 pg (25.7-33.7); MCHC 32.3 g/dl (32.0-35.9); MEAN CELL VOLUME 82.2 fl (80-96); MEAN PLT VOLUME 7.8 fl (7.5-11.1); MONO % 7.5 % (3.8-10.2); NEUT % 56.8 % (42.8-82.8); PLATELET COUNT 307 10^3/uL (134-434); RBC 3.99 M/mm3 (4.00-5.60); RDW 15.7 % (11.9-15.9); WHITE BLOOD COUNT 6.3 K/mm3 (4.0-10.0)
[2021-09-30] MEDS ORDERED: PT OWN MED DRAWER 7, Y5N ONE (10:32)
[2021-09-30] MEDS ORDERED: cefTRIAXone SODIUM 1 GM VIAL ONE (10:33)
[2021-09-30] MEDS ORDERED: DEXTROSE 5%-WATER - 50 ML IVPB ONE (10:33)
[2021-09-30] MEDS: MINERAL OIL/PET HY-PHL TOPICAL OINTMENT 454 GM JAR TP SCH (10:34)
[2021-09-30] MEDS: AMINO ACIDS/PROTEIN HYDROLYS 30 ML LIQUID.PKT PO SCH ×2 (10:34→18:13)
[2021-09-30] MEDS: CEFTRIAXONE 1 GM in DEXTROSE 5%-WATER - 50 ML IVPB SCH (10:35)
[2021-09-30] MEDS: FLUCONAZOLE 100 MG TABLET (UD) PO SCH (10:35)
[2021-09-30] MEDS: TRIAMCINOLONE ACET 0.5% CREAM 15 GM TUBE TP SCH ×2 (10:35→23:26)
[2021-09-30] MEDS: amLODIPine BESYLATE 10 MG TABLET (FP) PO SCH (10:35)
[2021-09-30] MEDS: OXYBUTYNIN CHLORIDE 5 MG TABLET PO SCH ×2 (10:35→23:19)
[2021-09-30] MEDS: LISINOPRIL 20 MG TABLET PO SCH (10:35)
[2021-09-30] MEDS: ASCORBIC ACID 500 MG TABLET (FP) PO SCH (10:35)
[2021-09-30] MEDS: ENOXAPARIN NA (PORCINE) 40 MG/0.4 ML DISP.SYRIN SQ SCH (10:35)
[2021-09-30 11:10] LABS: CALCIUM 9.1 mg/dL (8.5-10.1)
[2021-09-30 11:11] LABS: BLOOD UREA NITROGEN 19.2 mg/dL (7-18)
[2021-09-30 11:14] LABS: CREATININE 0.6 mg/dL (0.55-1.3)
[2021-09-30] MEDS: ATORVASTATIN CA 40 MG TABLET (FP) PO SCH (23:19)
[2021-10-01] MEDS: INSULIN SLIDING SCALE (NOVOLOG) 1 VIAL SQ SCH ×4 (07:13→22:19)
[2021-10-01 09:32] LABS: HEMATOCRIT 35.5 % (35.4-49); HEMOGLOBIN 11.1 GM/dL (11.7-16.9); MCH 26.2 pg (25.7-33.7); MCHC 31.3 g/dl (32.0-35.9); MEAN CELL VOLUME 83.7 fl (80-96); MEAN PLT VOLUME 8.1 fl (7.5-11.1); PLATELET COUNT 323 10^3/uL (134-434); RBC 4.24 M/mm3 (4.00-5.60)
[2021-10-01] MEDS ORDERED: cefTRIAXone SODIUM 1 GM VIAL ONE (10:13)
[2021-10-01] MEDS ORDERED: DEXTROSE 5%-WATER - 50 ML IVPB ONE (10:13)
[2021-10-01] MEDS: LISINOPRIL 20 MG TABLET PO SCH (10:20)
[2021-10-01] MEDS: ASCORBIC ACID 500 MG TABLET (FP) PO SCH (10:20)
[2021-10-01] MEDS: AMINO ACIDS/PROTEIN HYDROLYS 30 ML LIQUID.PKT PO SCH ×2 (10:20→18:12)
[2021-10-01 10:21] LABS: BLOOD UREA NITROGEN 24.1 mg/dL (7-18); CALCIUM 9.1 mg/dL (8.5-10.1); MAGNESIUM 2.3 mg/dL (1.8-2.4)
[2021-10-01] MEDS: MINERAL OIL/PET HY-PHL TOPICAL OINTMENT 454 GM JAR TP SCH (10:21)
[2021-10-01] MEDS: amLODIPine BESYLATE 10 MG TABLET (FP) PO SCH (10:21)
[2021-10-01] MEDS: OXYBUTYNIN CHLORIDE 5 MG TABLET PO SCH ×2 (10:21→22:13)
[2021-10-01] MEDS: TRIAMCINOLONE ACET 0.5% CREAM 15 GM TUBE TP SCH ×2 (10:21→22:50)
[2021-10-01] MEDS: FLUCONAZOLE 100 MG TABLET (UD) PO SCH (10:22)
[2021-10-01] MEDS: ENOXAPARIN NA (PORCINE) 40 MG/0.4 ML DISP.SYRIN SQ SCH (10:22)
[2021-10-01] MEDS: CEFTRIAXONE 1 GM in DEXTROSE 5%-WATER - 50 ML IVPB SCH (10:22)
[2021-10-01 10:24] LABS: CREATININE 0.7 mg/dL (0.55-1.3); PHOSPHOROUS 3.2 mg/dL (2.5-4.9)
[2021-10-01] MEDS: ATORVASTATIN CA 40 MG TABLET (FP) PO SCH (22:13)
[2021-10-02] MEDS: INSULIN SLIDING SCALE (NOVOLOG) 1 VIAL SQ SCH ×4 (06:59→22:19)
[2021-10-02 10:25] LABS: BASO % 0.4 % (0-2.0); EOS % 1.1 % (0-4.5); HEMATOCRIT 31.2 % (35.4-49); HEMOGLOBIN 10.2 GM/dL (11.7-16.9); LYMPH % 26.1 % (8-40); MCH 26.7 pg (25.7-33.7); MCHC 32.5 g/dl (32.0-35.9); MEAN CELL VOLUME 82.2 fl (80-96); MEAN PLT VOLUME 7.9 fl (7.5-11.1); MONO % 5.2 % (3.8-10.2); NEUT % 67.2 % (42.8-82.8); PLATELET COUNT 299 10^3/uL (134-434); RDW 15.8 % (11.9-15.9); WHITE BLOOD COUNT 6.8 K/mm3 (4.0-10.0)
[2021-10-02] MEDS ORDERED: cefTRIAXone SODIUM 1 GM VIAL ONE (10:26)
[2021-10-02] MEDS ORDERED: DEXTROSE 5%-WATER - 50 ML IVPB ONE (10:26)
[2021-10-02] MEDS: ENOXAPARIN NA (PORCINE) 40 MG/0.4 ML DISP.SYRIN SQ SCH (10:27)
[2021-10-02] MEDS: AMINO ACIDS/PROTEIN HYDROLYS 30 ML LIQUID.PKT PO SCH ×2 (10:28→16:33)
[2021-10-02] MEDS: CEFTRIAXONE 1 GM in DEXTROSE 5%-WATER - 50 ML IVPB SCH (10:28)
[2021-10-02] MEDS: FLUCONAZOLE 100 MG TABLET (UD) PO SCH (10:28)
[2021-10-02] MEDS: LISINOPRIL 20 MG TABLET PO SCH (10:28)
[2021-10-02] MEDS: ASCORBIC ACID 500 MG TABLET (FP) PO SCH (10:28)
[2021-10-02] MEDS: amLODIPine BESYLATE 10 MG TABLET (FP) PO SCH (10:28)
[2021-10-02] MEDS: OXYBUTYNIN CHLORIDE 5 MG TABLET PO SCH ×2 (10:28→21:10)
[2021-10-02] MEDS: TRIAMCINOLONE ACET 0.5% CREAM 15 GM TUBE TP SCH ×2 (10:29→22:20)
[2021-10-02] MEDS: MINERAL OIL/PET HY-PHL TOPICAL OINTMENT 454 GM JAR TP SCH (10:29)
[2021-10-02 10:50] LABS: CALCIUM 8.6 mg/dL (8.5-10.1)
[2021-10-02 10:51] LABS: MAGNESIUM 2.3 mg/dL (1.8-2.4)
[2021-10-02 10:54] LABS: CREATININE 0.6 mg/dL (0.55-1.3); PHOSPHOROUS 3.2 mg/dL (2.5-4.9)
[2021-10-02] MEDS ORDERED: INSULIN (NOVOLOG) ASPART 100 UNITS/ML 10ML VIAL ONE (21:02)
[2021-10-02] MEDS: ATORVASTATIN CA 40 MG TABLET (FP) PO SCH (21:10)
[2021-10-03] MEDS: INSULIN SLIDING SCALE (NOVOLOG) 1 VIAL SQ SCH ×4 (06:21→21:55)
[2021-10-03 09:10] LABS: HEMATOCRIT 32.3 % (35.4-49); HEMOGLOBIN 10.3 GM/dL (11.7-16.9); MCH 26.4 pg (25.7-33.7); MCHC 31.8 g/dl (32.0-35.9); MEAN PLT VOLUME 7.9 fl (7.5-11.1); PLATELET COUNT 306 10^3/uL (134-434); RBC 3.89 M/mm3 (4.00-5.60); RDW 16.1 % (11.9-15.9); WHITE BLOOD COUNT 5.5 K/mm3 (4.0-10.0)
[2021-10-03 09:32] LABS: CALCIUM 8.7 mg/dL (8.5-10.1); MAGNESIUM 2.3 mg/dL (1.8-2.4)
[2021-10-03 09:36] LABS: CREATININE 0.6 mg/dL (0.55-1.3); PHOSPHOROUS 3.1 mg/dL (2.5-4.9)
[2021-10-03] MEDS ORDERED: cefTRIAXone SODIUM 1 GM VIAL ONE (10:32)
[2021-10-03] MEDS ORDERED: DEXTROSE 5%-WATER - 50 ML IVPB ONE (10:32)
[2021-10-03] MEDS ORDERED: PT OWN MED DRAWER 7, Y5N ONE (10:34)
[2021-10-03] MEDS: AMINO ACIDS/PROTEIN HYDROLYS 30 ML LIQUID.PKT PO SCH ×2 (10:38→17:34)
[2021-10-03] MEDS: ENOXAPARIN NA (PORCINE) 40 MG/0.4 ML DISP.SYRIN SQ SCH (10:38)
[2021-10-03] MEDS: MINERAL OIL/PET HY-PHL TOPICAL OINTMENT 454 GM JAR TP SCH (10:38)
[2021-10-03] MEDS: LISINOPRIL 20 MG TABLET PO SCH (10:38)
[2021-10-03] MEDS: TRIAMCINOLONE ACET 0.5% CREAM 15 GM TUBE TP SCH ×2 (10:39→21:56)
[2021-10-03] MEDS: ASCORBIC ACID 500 MG TABLET (FP) PO SCH (10:39)
[2021-10-03] MEDS: CEFTRIAXONE 1 GM in DEXTROSE 5%-WATER - 50 ML IVPB SCH (10:39)
[2021-10-03] MEDS: OXYBUTYNIN CHLORIDE 5 MG TABLET PO SCH ×2 (10:39→21:50)
[2021-10-03] MEDS: amLODIPine BESYLATE 10 MG TABLET (FP) PO SCH (10:39)
[2021-10-03] MEDS: FLUCONAZOLE 100 MG TABLET (UD) PO SCH (10:39)
[2021-10-03] MEDS ORDERED: INSULIN (NOVOLOG) ASPART 100 UNITS/ML 10ML VIAL ONE (10:43)
[2021-10-03] MEDS: ATORVASTATIN CA 40 MG TABLET (FP) PO SCH (21:50)
[2021-10-04] MEDS: INSULIN SLIDING SCALE (NOVOLOG) 1 VIAL SQ SCH ×4 (06:06→21:47)
[2021-10-04] MEDS ORDERED: PT OWN MED DRAWER 7, Y5N ONE (10:33)
[2021-10-04] MEDS: TRIAMCINOLONE ACET 0.5% CREAM 15 GM TUBE TP SCH ×2 (10:44→21:49)
[2021-10-04] MEDS: MINERAL OIL/PET HY-PHL TOPICAL OINTMENT 454 GM JAR TP SCH (10:44)
[2021-10-04] MEDS: AMINO ACIDS/PROTEIN HYDROLYS 30 ML LIQUID.PKT PO SCH ×2 (10:44→17:39)
[2021-10-04] MEDS: FLUCONAZOLE 100 MG TABLET (UD) PO SCH (10:45)
[2021-10-04] MEDS: ENOXAPARIN NA (PORCINE) 40 MG/0.4 ML DISP.SYRIN SQ SCH (10:45)
[2021-10-04] MEDS: OXYBUTYNIN CHLORIDE 5 MG TABLET PO SCH ×2 (10:45→21:41)
[2021-10-04] MEDS: amLODIPine BESYLATE 10 MG TABLET (FP) PO SCH (10:45)
[2021-10-04] MEDS: LISINOPRIL 20 MG TABLET PO SCH (10:45)
[2021-10-04] MEDS: ASCORBIC ACID 500 MG TABLET (FP) PO SCH (10:46)
[2021-10-04 11:03] LABS: BASO % 0.5 % (0-2.0); EOS % 1.1 % (0-4.5); HEMATOCRIT 32.9 % (35.4-49); HEMOGLOBIN 10.6 GM/dL (11.7-16.9); LYMPH % 35.9 % (8-40); MCH 26.7 pg (25.7-33.7); MCHC 32.1 g/dl (32.0-35.9); MEAN CELL VOLUME 83.3 fl (80-96); MEAN PLT VOLUME 8.5 fl (7.5-11.1); MONO % 5.9 % (3.8-10.2); NEUT % 56.6 % (42.8-82.8); PLATELET COUNT 327 10^3/uL (134-434); RBC 3.95 M/mm3 (4.00-5.60); RDW 15.7 % (11.9-15.9); WHITE BLOOD COUNT 5.5 K/mm3 (4.0-10.0)
[2021-10-04] MEDS ORDERED: INSULIN (NOVOLOG) ASPART 100 UNITS/ML 10ML VIAL ONE (11:20)
[2021-10-04 11:40] LABS: CALCIUM 8.9 mg/dL (8.5-10.1)
[2021-10-04 11:41] LABS: BLOOD UREA NITROGEN 19.8 mg/dL (7-18); MAGNESIUM 2.4 mg/dL (1.8-2.4)
[2021-10-04 11:44] LABS: CREATININE 0.6 mg/dL (0.55-1.3); PHOSPHOROUS 3.3 mg/dL (2.5-4.9)
[2021-10-04] MEDS ORDERED: Insulin (LOG) Aspart 100 UNITS/ML VIAL SQ ONE (18:29)
[2021-10-04] MEDS: ATORVASTATIN CA 40 MG TABLET (FP) PO SCH (21:41)
[2021-10-04] MEDS: INSULIN (LEVEMIR) 100 UNITS/ML UNITS SQ SCH (21:48)
[2021-10-04] MEDS: COD LIVER OIL/ZINC OXIDE PASTE 56 GM TUBE TP PRN (21:50)
[2021-10-05] MEDS: INSULIN SLIDING SCALE (NOVOLOG) 1 VIAL SQ SCH ×4 (06:42→22:07)
[2021-10-05] MEDS ORDERED: INSULIN (NOVOLOG) ASPART 100 UNITS/ML 10ML VIAL ONE ×2 (06:51→11:28)
[2021-10-05] MEDS: AMINO ACIDS/PROTEIN HYDROLYS 30 ML LIQUID.PKT PO SCH ×2 (09:52→17:50)
[2021-10-05] MEDS: ASCORBIC ACID 500 MG TABLET (FP) PO SCH (10:26)
[2021-10-05] MEDS: LISINOPRIL 20 MG TABLET PO SCH (10:26)
[2021-10-05] MEDS: OXYBUTYNIN CHLORIDE 5 MG TABLET PO SCH ×2 (10:26→22:02)
[2021-10-05] MEDS: amLODIPine BESYLATE 10 MG TABLET (FP) PO SCH (10:26)
[2021-10-05] MEDS: TRIAMCINOLONE ACET 0.5% CREAM 15 GM TUBE TP SCH ×2 (10:27→22:02)
[2021-10-05] MEDS: ENOXAPARIN NA (PORCINE) 40 MG/0.4 ML DISP.SYRIN SQ SCH (10:27)
[2021-10-05] MEDS: FLUCONAZOLE 100 MG TABLET (UD) PO SCH (10:27)
[2021-10-05] MEDS: MINERAL OIL/PET HY-PHL TOPICAL OINTMENT 454 GM JAR TP SCH (10:27)
[2021-10-05] MEDS: INSULIN (LEVEMIR) 100 UNITS/ML UNITS SQ SCH ×2 (11:31→22:02)
[2021-10-05] MEDS ORDERED: PT OWN MED DRAWER 7, Y5N ONE (17:04)
[2021-10-05] MEDS: Insulin (LOG) Aspart 100 UNITS/ML VIAL SQ SCH (18:11)
[2021-10-05] MEDS ORDERED: INSULIN (LEVEMIR) 100 UNITS/ML UNITS SQ SCH (22:00)
[2021-10-05] MEDS: ATORVASTATIN CA 40 MG TABLET (FP) PO SCH (22:02)
[2021-10-06] MEDS ORDERED: INSULIN (NOVOLOG) ASPART 100 UNITS/ML 10ML VIAL ONE ×2 (06:32→11:02)
[2021-10-06] MEDS: INSULIN (LEVEMIR) 100 UNITS/ML UNITS SQ SCH ×2 (06:39→22:19)
[2021-10-06] MEDS: INSULIN SLIDING SCALE (NOVOLOG) 1 VIAL SQ SCH ×4 (06:44→22:20)
[2021-10-06] MEDS: Insulin (LOG) Aspart 100 UNITS/ML VIAL SQ SCH ×3 (06:47→17:30)
[2021-10-06] MEDS ORDERED: INSULIN (LEVEMIR) 100 UNITS/ML UNITS SQ ONE (06:50)
[2021-10-06 08:29] LABS: HEMATOCRIT 32.2 % (35.4-49); HEMOGLOBIN 10.2 GM/dL (11.7-16.9); MCH 26.3 pg (25.7-33.7); MCHC 31.8 g/dl (32.0-35.9); MEAN CELL VOLUME 82.8 fl (80-96); MEAN PLT VOLUME 7.9 fl (7.5-11.1); PLATELET COUNT 298 10^3/uL (134-434); RBC 3.89 M/mm3 (4.00-5.60); WHITE BLOOD COUNT 5.6 K/mm3 (4.0-10.0)
[2021-10-06 08:48] LABS: MAGNESIUM 2.2 mg/dL (1.8-2.4)
[2021-10-06 08:49] LABS: BLOOD UREA NITROGEN 24.5 mg/dL (7-18)
[2021-10-06 08:52] LABS: CREATININE 0.6 mg/dL (0.55-1.3)
[2021-10-06] MEDS ORDERED: PT OWN MED DRAWER 7, Y5N ONE (09:06)
[2021-10-06] MEDS: ENOXAPARIN NA (PORCINE) 40 MG/0.4 ML DISP.SYRIN SQ SCH (09:17)
[2021-10-06] MEDS: FLUCONAZOLE 100 MG TABLET (UD) PO SCH (09:17)
[2021-10-06] MEDS: MINERAL OIL/PET HY-PHL TOPICAL OINTMENT 454 GM JAR TP SCH (09:18)
[2021-10-06] MEDS: amLODIPine BESYLATE 10 MG TABLET (FP) PO SCH (09:18)
[2021-10-06] MEDS: OXYBUTYNIN CHLORIDE 5 MG TABLET PO SCH ×2 (09:18→22:18)
[2021-10-06] MEDS: TRIAMCINOLONE ACET 0.5% CREAM 15 GM TUBE TP SCH ×2 (09:18→22:23)
[2021-10-06] MEDS: AMINO ACIDS/PROTEIN HYDROLYS 30 ML LIQUID.PKT PO SCH ×2 (09:18→17:04)
[2021-10-06] MEDS: ASCORBIC ACID 500 MG TABLET (FP) PO SCH (09:18)
[2021-10-06] MEDS: LISINOPRIL 20 MG TABLET PO SCH (09:18)
[2021-10-06] MEDS ORDERED: INSULIN (LEVEMIR) 100 UNITS/ML UNITS SQ SCH ×2 (10:00)
[2021-10-06] MEDS: ATORVASTATIN CA 40 MG TABLET (FP) PO SCH (22:18)
[2021-10-07] MEDS: INSULIN (LEVEMIR) 100 UNITS/ML UNITS SQ SCH (06:18)
[2021-10-07] MEDS: Insulin (LOG) Aspart 100 UNITS/ML VIAL SQ SCH ×3 (07:33→17:31)
[2021-10-07] MEDS: INSULIN SLIDING SCALE (NOVOLOG) 1 VIAL SQ SCH ×3 (07:33→17:30)
[2021-10-07] MEDS ORDERED: INSULIN (NOVOLOG) ASPART 100 UNITS/ML 10ML VIAL ONE (07:40)
[2021-10-07] MEDS ORDERED: PT OWN MED DRAWER 7, Y5N ONE (10:34)
[2021-10-07] MEDS: MINERAL OIL/PET HY-PHL TOPICAL OINTMENT 454 GM JAR TP SCH (10:49)
[2021-10-07] MEDS: TRIAMCINOLONE ACET 0.5% CREAM 15 GM TUBE TP SCH (10:49)
[2021-10-07] MEDS: AMINO ACIDS/PROTEIN HYDROLYS 30 ML LIQUID.PKT PO SCH ×2 (10:49→17:27)
[2021-10-07] MEDS: amLODIPine BESYLATE 10 MG TABLET (FP) PO SCH (10:50)
[2021-10-07] MEDS: ENOXAPARIN NA (PORCINE) 40 MG/0.4 ML DISP.SYRIN SQ SCH (10:50)
[2021-10-07] MEDS: LISINOPRIL 20 MG TABLET PO SCH (10:50)
[2021-10-07] MEDS: OXYBUTYNIN CHLORIDE 5 MG TABLET PO SCH (10:50)
[2021-10-07] MEDS: ASCORBIC ACID 500 MG TABLET (FP) PO SCH (10:50)
[2021-10-07] MEDS: FLUCONAZOLE 100 MG TABLET (UD) PO SCH (10:51)
[2021-10-07 11:20] LABS: HEMATOCRIT 31.4 % (35.4-49); MCH 26.4 pg (25.7-33.7); MCHC 31.9 g/dl (32.0-35.9); MEAN CELL VOLUME 82.7 fl (80-96); MEAN PLT VOLUME 7.9 fl (7.5-11.1); PLATELET COUNT 327 10^3/uL (134-434); RDW 15.7 % (11.9-15.9); WHITE BLOOD COUNT 5.5 K/mm3 (4.0-10.0)
[2021-10-07 11:58] LABS: CALCIUM 8.9 mg/dL (8.5-10.1)
[2021-10-07 12:00] LABS: BLOOD UREA NITROGEN 25.2 mg/dL (7-18)
[2021-10-07 12:03] LABS: CREATININE 0.6 mg/dL (0.55-1.3)
[2021-10-07 15:05] VITALS: BP 126/65; PULSE 83; TEMP 98.6
== END 2021-10-07 18:06 | DRG 867 ==
LOC: JER 14:32 → JERBED 19:11 → J5S 09-28 19:31 → J8W 09-29 19:15 → OBSVTOIN 09-30 09:32
PROVIDERS: ATTEND Internal Medicine
DX: B37.89 Other sites of candidiasis (principal); U07.1 COVID-19; E43 Unspecified severe protein-calorie malnutrition; N39.0 Urinary tract infection, site not specified; I69.354 Hemiplegia and hemiparesis following cerebral infarction affecting left non-dominant side; E87.2 Acidosis; R65.10 Systemic inflammatory response syndrome (SIRS) of non-infectious origin without acute organ dysfunction; Z68.1 Body mass index [BMI] 19.9 or less, adult; I10 Essential (primary) hypertension; E78.5 Hyperlipidemia, unspecified; N40.0 Benign prostatic hyperplasia without lower urinary tract symptoms; L89.152 Pressure ulcer of sacral region, stage 2; Z99.3 Dependence on wheelchair; E11.65 Type 2 diabetes mellitus with hyperglycemia; L22 Diaper dermatitis; B37.2 Candidiasis of skin and nail; N47.1 Phimosis; N48.1 Balanitis; R91.8 Other nonspecific abnormal finding of lung field
CPT/HCPCS: 36415; 71045-TC-FY; 80048; 80053; 81003; 82272; 82550; 82962; 83605; 83735; 84100; 85025; 85027; 87040; 87086; 93005; 93010; 97161-GP; 99285-25; C9803; G0378; U0003; U0005

== ENCOUNTER 2021-12-06 11:20 | Inpatient (IN) | payer OTHER ==
[2021-12-06] MEDS ORDERED: CALCIUM GLUCONATE 10% - 1,000 MG/10 ML VIAL IVPUSH ONE (12:10)
[2021-12-06] MEDS ORDERED: LACTATED RINGERS SOLUTION 1000 ML INFUS.BAG IV ONE (12:10)
[2021-12-06] MEDS ORDERED: CALCIUM GLUCONATE 10% - 1,000 MG/10 ML VIAL ONE (12:26)
[2021-12-06 12:37] LABS: VENOUS O2 SATURATION 89.9 % (70-80); VENOUS PCO2 43.8 mmHg (38-52); VENOUS PH 7.393 (7.310-7.410)
[2021-12-06 12:38] LABS: BASO % 0.4 % (0-2.0); HEMATOCRIT 31.3 % (35.4-49); HEMOGLOBIN 9.8 GM/dL (11.7-16.9); LYMPH % 16.1 % (8-40); MCH 25.5 pg (25.7-33.7); MCHC 31.1 g/dl (32.0-35.9); MEAN PLT VOLUME 7.9 fl (7.5-11.1); MONO % 6.2 % (3.8-10.2); NEUT % 76.3 % (42.8-82.8); PLATELET COUNT 326 10^3/uL (134-434); RBC 3.82 M/mm3 (4.00-5.60); RDW 16.9 % (11.9-15.9)
[2021-12-06 12:55] LABS: CHLORIDE 95 mmol/L (98-107); SODIUM 130 mmol/L (136-145)
[2021-12-06 13:00] LABS: ALBUMIN 2.5 g/dl (3.4-5.0); ANION GAP 7 MMOL/L (8-16); BLOOD UREA NITROGEN 20.9 mg/dL (7-18); CALCIUM 8.2 mg/dL (8.5-10.1); CO2 28 mmol/L (21-32); MAGNESIUM 2.5 mg/dL (1.8-2.4)
[2021-12-06 13:03] LABS: CREATININE 1.1 mg/dL (0.55-1.3); SGOT/AST 16 U/L (15-37); SGPT/ALT 18 U/L (13-61)
[2021-12-06] MEDS ORDERED: INSULIN REGULAR HUMAN 100 UNITS/ML *VIAL IVPUSH ONE (13:03)
[2021-12-06 13:05] LABS: BILIRUBIN,TOTAL 0.3 mg/dL (0.2-1)
[2021-12-06 13:07] LABS: ALK PHOS 83 U/L (45-117)
[2021-12-06 13:26] LABS: EPI CELLS 12 /uL (0-25.1); HYALINE CASTS 1 /uL (0-3.1); PH,URINE 7.5 (5.0-8.0); URINE APPEARANCE TURBID; URINE BACTERIA >9,000 /uL (0-1359); URINE BILIRUBIN NEGATIVE (NEGATIVE); URINE COLOR YELLOW; URINE GLUCOSE (UA) 3+ (NEGATIVE); URINE KETONE NEGATIVE (NEGATIVE); URINE LEUK ESTERASE 2+ (NEGATIVE); URINE NITRITE NEGATIVE (NEGATIVE); URINE PROTEIN TRACE (NEGATIVE); URINE UROBILINOGEN 0.2 mg/dL (0.2-1.0); URINE WBC 4860 /uL (0-25.8)
[2021-12-06] MEDS ORDERED: CEFTRIAXONE 1,000 MG in DEXTROSE 5%-WATER - 50 ML IVPB ONE (13:43)
[2021-12-06] MEDS ORDERED: CEFTRIAXONE 1 GM/50 ML BAG ONE (13:47)
[2021-12-06 13:48] LABS: URINE RBC 71.8 /uL (0-23.9); YEAST PRESENT (NEGATIVE)
[2021-12-06 14:15] LABS: GLUCOSE,RANDOM 693 mg/dL (74-106)
[2021-12-06] MEDS ORDERED: SODIUM CHLORIDE 1,000 ML IV SCH (14:15)
[2021-12-06] MEDS ORDERED: SODIUM CHLORIDE 0.9% 1000 ML INFUS.BAG IV ONE (14:18)
[2021-12-06] MEDS ORDERED: INSULIN (NOVOLOG) ASPART 100 UNITS/ML 10ML VIAL SQ ONE (14:45)
[2021-12-06] MEDS ORDERED: FLUCONAZOLE 100 MG TABLET (UD) PO SCH (15:15)
[2021-12-06] MEDS ORDERED: FLUCONAZOLE 100 MG TABLET (UD) ONE (15:53)
[2021-12-06] MEDS ORDERED: ASPIRIN 81 MG CHEWABLE TABLETS PO ONE (15:57)
[2021-12-06] MEDS ORDERED: ASPIRIN 81 MG CHEWABLE TABLETS ONE (16:03)
[2021-12-06] MEDS ORDERED: INSULIN SLIDING SCALE (NOVOLOG) 1 VIAL SQ SCH (16:30)
[2021-12-06 16:34] LABS: CALCIUM 8.1 mg/dL (8.5-10.1)
[2021-12-06 16:36] LABS: BLOOD UREA NITROGEN 17.9 mg/dL (7-18)
[2021-12-06 16:38] LABS: CREATININE 0.8 mg/dL (0.55-1.3)
[2021-12-06] MEDS ORDERED: ASPIRIN COATED 81 MG TABLET.EC PO ONE (17:26)
[2021-12-06] MEDS ORDERED: ASPIRIN COATED 81 MG TABLET.EC ONE (17:30)
[2021-12-06] MEDS: INSULIN SLIDING SCALE (NOVOLOG) 1 VIAL SQ SCH ×3 (17:38→23:30)
[2021-12-06] MEDS: AMINO ACIDS/PROTEIN HYDROLYS 30 ML LIQUID.PKT PO SCH (20:19)
[2021-12-06] MEDS: ZINC OXIDE/PANTHENOL/VITAMIN E 56 GM TUBE TP SCH (20:19)
[2021-12-06] MEDS ORDERED: MIRTAZAPINE 15 MG TABLET (FP) ONE (22:15)
[2021-12-06] MEDS ORDERED: ATORVASTATIN CA 40 MG TABLET (FP) ONE (22:15)
[2021-12-06] MEDS: MIRTAZAPINE 15 MG TABLET (FP) PO SCH (22:23)
[2021-12-06] MEDS: INSULIN (LEVEMIR) 100 UNITS/ML UNITS SQ SCH ×2 (22:23→23:30)
[2021-12-06] MEDS: ATORVASTATIN CA 40 MG TABLET (FP) PO SCH (22:23)
[2021-12-07 00:21] LABS: ALBUMIN 2.1 g/dl (3.4-5.0); MAGNESIUM 2.1 mg/dL (1.8-2.4)
[2021-12-07 00:24] LABS: CREATININE 0.7 mg/dL (0.55-1.3); PHOSPHOROUS 3.3 mg/dL (2.5-4.9)
[2021-12-07 00:27] LABS: BILIRUBIN,TOTAL 0.2 mg/dL (0.2-1); TOT PROT 6.1 g/dl (6.4-8.2)
[2021-12-07] MEDS ORDERED: HEPARIN NA (PORCINE) 5,000 UNITS/ML 1ML VIAL IVPUSH PRN ×2 (01:40)
[2021-12-07] MEDS ORDERED: HEPARIN NA (PORCINE) 5,000 UNITS/ML 1ML VIAL IVPUSH ONE (01:48)
[2021-12-07] MEDS: LISINOPRIL 10 MG TABLET PO SCH ×2 (02:45→10:39)
[2021-12-07] MEDS: METOPROLOL TARTRATE 25 MG TABLET (FP) PO SCH ×3 (02:45→21:14)
[2021-12-07] MEDS: HEPARIN - 25,000 UNIT in SODIUM CHLORIDE 495 ML IV SCH (04:00)
[2021-12-07] MEDS: INSULIN SLIDING SCALE (NOVOLOG) 1 VIAL SQ SCH ×5 (06:38→22:30)
[2021-12-07] MEDS: METHIMAZOLE 10 MG TABLET PO SCH (06:39)
[2021-12-07 09:18] LABS: BASO % 0.7 % (0-2.0); EOS % 1.9 % (0-4.5); HEMATOCRIT 30.5 % (35.4-49); HEMOGLOBIN 9.6 GM/dL (11.7-16.9); MCH 25.6 pg (25.7-33.7); MCHC 31.6 g/dl (32.0-35.9); MEAN PLT VOLUME 8.1 fl (7.5-11.1); MONO % 8.1 % (3.8-10.2); NEUT % 53.3 % (42.8-82.8); PLATELET COUNT 336 10^3/uL (134-434); RBC 3.76 M/mm3 (4.00-5.60); RDW 16.4 % (11.9-15.9); WHITE BLOOD COUNT 6.1 K/mm3 (4.0-10.0)
[2021-12-07 09:30] LABS: VENOUS BASE EXCESS 1.2 mmol/L (-2-2); VENOUS O2 SATURATION 56.9 % (70-80)
[2021-12-07 09:31] LABS: VENOUS PH 7.318 (7.310-7.410)
[2021-12-07 09:42] LABS: BLOOD UREA NITROGEN 14.7 mg/dL (7-18); MAGNESIUM 2.2 mg/dL (1.8-2.4)
[2021-12-07 09:45] LABS: CREATININE 0.6 mg/dL (0.55-1.3); PHOSPHOROUS 3.4 mg/dL (2.5-4.9)
[2021-12-07] MEDS ORDERED: ENOXAPARIN NA (PORCINE) 30 MG/0.3 ML DISP.SYRIN SQ SCH ×2 (10:00)
[2021-12-07] MEDS ORDERED: amLODIPine BESYLATE 10 MG TABLET (FP) PO SCH (10:00)
[2021-12-07] MEDS ORDERED: DEXTROSE 5%-WATER - 50 ML IVPB ONE (10:36)
[2021-12-07] MEDS ORDERED: cefTRIAXone SODIUM 1 GM VIAL ONE (10:36)
[2021-12-07] MEDS: AMINO ACIDS/PROTEIN HYDROLYS 30 ML LIQUID.PKT PO SCH ×2 (10:39→17:05)
[2021-12-07] MEDS: ZINC OXIDE/PANTHENOL/VITAMIN E 56 GM TUBE TP SCH (10:39)
[2021-12-07] MEDS: CLOPIDOGREL BISULFATE 75 MG TABLET (FP) PO SCH (10:39)
[2021-12-07] MEDS: PANTOPRAZOLE 40 MG TABLET PO SCH (10:39)
[2021-12-07] MEDS: CEFTRIAXONE 1 GM in DEXTROSE 5%-WATER - 50 ML IVPB SCH (10:39)
[2021-12-07] MEDS: ATORVASTATIN CA 40 MG TABLET (FP) PO SCH (21:13)
[2021-12-07] MEDS: MIRTAZAPINE 15 MG TABLET (FP) PO SCH (21:20)
[2021-12-07] MEDS: INSULIN (LEVEMIR) 100 UNITS/ML UNITS SQ SCH ×2 (21:27→22:00)
[2021-12-08 00:46] LABS: CHLORIDE 109 mmol/L (98-107); SODIUM 142 mmol/L (136-145)
[2021-12-08 00:48] LABS: CALCIUM 8.2 mg/dL (8.5-10.1)
[2021-12-08 00:49] LABS: ALBUMIN 2.3 g/dl (3.4-5.0); ANION GAP 2 MMOL/L (8-16); BLOOD UREA NITROGEN 23.2 mg/dL (7-18); CO2 31 mmol/L (21-32); GLUCOSE,RANDOM 180 mg/dL (74-106); MAGNESIUM 2.3 mg/dL (1.8-2.4)
[2021-12-08 00:52] LABS: CREATININE 0.7 mg/dL (0.55-1.3); PHOSPHOROUS 3.2 mg/dL (2.5-4.9); SGOT/AST 20 U/L (15-37); SGPT/ALT 19 U/L (13-61)
[2021-12-08 00:53] LABS: TOT PROT 6.6 g/dl (6.4-8.2)
[2021-12-08 00:54] LABS: BILIRUBIN,TOTAL 0.2 mg/dL (0.2-1)
[2021-12-08 00:55] LABS: ALK PHOS 71 U/L (45-117)
[2021-12-08] MEDS: HEPARIN - 25,000 UNIT in SODIUM CHLORIDE 495 ML IV SCH (02:27)
[2021-12-08] MEDS: INSULIN SLIDING SCALE (NOVOLOG) 1 VIAL SQ SCH ×4 (06:28→21:49)
[2021-12-08] MEDS: METHIMAZOLE 10 MG TABLET PO SCH (06:28)
[2021-12-08] MEDS ORDERED: METOPROLOL TARTRATE 25 MG TABLET (FP) PO ONE ×2 (07:39→15:19)
[2021-12-08 08:18] LABS: CHOLESTEROL 196 mg/dL (50-200); TRIGLYCERIDES 65 mg/dL (0-150)
[2021-12-08 08:19] LABS: LDL CHOLESTEROL (ONLY SJRH) 119 mg/dL (5-100)
[2021-12-08 08:21] LABS: HDL CHOLESTEROL 64 mg/dL (40-60)
[2021-12-08 08:22] LABS: N-TERMINAL BNP 5134.2 pg/ml (5-125)
[2021-12-08] MEDS: AMINO ACIDS/PROTEIN HYDROLYS 30 ML LIQUID.PKT PO SCH ×2 (08:41→17:18)
[2021-12-08] MEDS ORDERED: cefTRIAXone SODIUM 1 GM VIAL ONE (09:20)
[2021-12-08] MEDS ORDERED: DEXTROSE 5%-WATER - 50 ML IVPB ONE (09:20)
[2021-12-08] MEDS ORDERED: JARDIANCE 10 MG PO SCH (10:00)
[2021-12-08] MEDS ORDERED: ASPIRIN 81 MG CHEWABLE TABLETS PO SCH (10:00)
[2021-12-08] MEDS ORDERED: ASPIRIN 325 MG TABLET PO SCH (10:00)
[2021-12-08] MEDS ORDERED: LISINOPRIL 10 MG TABLET PO SCH (10:30)
[2021-12-08] MEDS: ZINC OXIDE/PANTHENOL/VITAMIN E 56 GM TUBE TP SCH (10:49)
[2021-12-08] MEDS: PANTOPRAZOLE 40 MG TABLET PO SCH (10:49)
[2021-12-08] MEDS: CEFTRIAXONE 1 GM in DEXTROSE 5%-WATER - 50 ML IVPB SCH (10:49)
[2021-12-08] MEDS: CLOPIDOGREL BISULFATE 75 MG TABLET (FP) PO SCH (10:49)
[2021-12-08] MEDS ORDERED: INSULIN (LEVEMIR) 100 UNITS/ML UNITS SQ SCH (11:25)
[2021-12-08] MEDS ORDERED: METOPROLOL TARTRATE 25 MG TABLET (FP) PO SCH (14:00)
[2021-12-08 15:34] VITALS: BMI 20.7
[2021-12-08] MEDS: ATORVASTATIN CA 40 MG TABLET (FP) PO SCH (21:40)
[2021-12-08] MEDS: METOPROLOL TARTRATE 50 MG TABLET (FP) PO SCH (21:40)
[2021-12-08] MEDS: MIRTAZAPINE 15 MG TABLET (FP) PO SCH (21:40)
[2021-12-08] MEDS ORDERED: ASCORBIC ACID 250 MG TABLET (FP) PO SCH (22:00)
[2021-12-09] MEDS: INSULIN SLIDING SCALE (NOVOLOG) 1 VIAL SQ SCH (06:23)
[2021-12-09] MEDS: METHIMAZOLE 10 MG TABLET PO SCH (06:23)
[2021-12-09] MEDS: METOPROLOL TARTRATE 50 MG TABLET (FP) PO SCH (06:23)
[2021-12-09] MEDS: HEPARIN - 25,000 UNIT in SODIUM CHLORIDE 495 ML IV SCH (07:18)
[2021-12-09 08:58] LABS: HEMOGLOBIN 9.4 GM/dL (11.7-16.9); MCH 24.8 pg (25.7-33.7); MCHC 30.5 g/dl (32.0-35.9); MEAN CELL VOLUME 81.4 fl (80-96); MEAN PLT VOLUME 8.3 fl (7.5-11.1); PLATELET COUNT 348 10^3/uL (134-434); RBC 3.81 M/mm3 (4.00-5.60); RDW 16.8 % (11.9-15.9); WHITE BLOOD COUNT 7.2 K/mm3 (4.0-10.0)
[2021-12-09] MEDS: AMINO ACIDS/PROTEIN HYDROLYS 30 ML LIQUID.PKT PO SCH (08:58)
[2021-12-09 09:24] LABS: BLOOD UREA NITROGEN 26.3 mg/dL (7-18); CALCIUM 8.1 mg/dL (8.5-10.1); CREATININE 0.6 mg/dL (0.55-1.3); MAGNESIUM 2.3 mg/dL (1.8-2.4); PHOSPHOROUS 3.5 mg/dL (2.5-4.9)
[2021-12-09 09:42] VITALS: BP 140/64; PULSE 74; TEMP 98.1
[2021-12-09] MEDS ORDERED: ZINC SULFATE 220 MG CAPSULE (FP) PO SCH (10:00)
== END 2021-12-09 10:26 | disposition short-term general hospital (02) | DRG 637 ==
LOC: JER 11:20 → INTOOBSV 14:15 → UNDOADMOB 14:15 → JERBED 14:15 → OBSVTOIN 15:38 → J4S 23:52
PROVIDERS: ADMIT Internal Medicine; ATTEND Internal Medicine
DX: E11.65 Type 2 diabetes mellitus with hyperglycemia (principal); I21.4 Non-ST elevation (NSTEMI) myocardial infarction; I69.354 Hemiplegia and hemiparesis following cerebral infarction affecting left non-dominant side; R64 Cachexia; N39.0 Urinary tract infection, site not specified; I47.2 Ventricular tachycardia; I50.42 Chronic combined systolic (congestive) and diastolic (congestive) heart failure; E87.1 Hypo-osmolality and hyponatremia; E78.5 Hyperlipidemia, unspecified; L89.152 Pressure ulcer of sacral region, stage 2; E03.9 Hypothyroidism, unspecified; Z99.3 Dependence on wheelchair; E87.5 Hyperkalemia; N48.1 Balanitis; N47.1 Phimosis; E78.00 Pure hypercholesterolemia, unspecified; Z68.20 Body mass index [BMI] 20.0-20.9, adult; F32.9 Major depressive disorder, single episode, unspecified; I11.0 Hypertensive heart disease with heart failure; Z79.84 Long term (current) use of oral hypoglycemic drugs
CPT/HCPCS: 36415; 71046-TC-FY; 80048; 80053; 80061; 81003; 82010; 82550; 82553; 82803; 82962; 83036; 83735; 83880; 84100; 84484; 85025; 85027; 85730; 87086; 87186; 93005; 93010; 93306-TC; 94010; 99285-25; C9803; G0378; J1644; U0003; U0005